=== PATIENT | male | born 1955 | race Caucasian/White ===

== ENCOUNTER 2018-06-21 09:48 | Emergency (ER) | payer OTHER, SELFPAY ==
[2018-06-21 09:56] VITALS: BP 124/70; PULSE 93; RESP 18; TEMP 36.3; O2SAT 100
--- NOTE | 2018-06-21 11:38 | DI.RAD.S_ITS ---
PROCEDURE: XR FOOT LT MIN 3V INDICATIONS: 4th infection TECHNIQUE: 3 views of the foot were acquired. COMPARISON: None. FINDINGS: Bones: No fractures or dislocations. No suspicious bony lesions. Soft tissues: No tibiotalar joint effusion. Calcification of the distal Achilles tendon at calcaneal attachment. There is an ossicle in the posterior plantar soft tissue. Diffuse soft tissue swelling. IMPRESSION: 1. Diffuse soft tissue swelling consistent with cellulitis. 2. No bony erosions. If clinical symptoms persist or clinical suspicion for pathology is high, a triple phase bone scan is suggested for further evaluation. 3. Calcification in the distal Achilles tendon consistent with tendinitis. 4. An ossicle in the posterior plantar fascia, which may be sequelae of plantar fasciitis. Dictated by: Troy Patel M.D. on 06/21/2018 at 12:11 Approved by: Troy Patel M.D. on 06/21/2018 at 12:13
[2018-06-21 11:54] LABS: Add Manual Diff / Slide Review NO; Basophils Absolute Auto 100 /uL (0-100); Basophils Percent Auto 0.7 % (0-2); Eosinophils Absolute Auto 100 /uL (0-450); Eosinophils Percent Auto 1.3 % (2-4); Hemoglobin 14.7 g/dL (13.5-17.5); Lymphocytes Absolute Auto 1100 /uL (1100-4500); Lymphocytes Percent Auto 10.9 % (25-40); Mean Corpuscular HGB Conc 33.4 % (30-36); Mean Corpuscular Hemoglobin 30.7 PG (26-34); Mean Corpuscular Volume 92.1 fL (80-100); Monocytes Absolute Auto 600 /uL (0-900); Monocytes Percent Auto 6.3 % (3-14); Neutrophils Absolute Auto 7800 /uL (1500-7000); Neutrophils Percent Auto 80.8 % (50-75); Platelet Count 289 X10^3/uL (150-400); Red Blood Cell Count 4.78 X10^6/uL (4.5-5.9); Red Cell Distribution Width 14.3 % (11.6-14.8); White Blood Cell Count 9.7 X10^3/uL (4.5-11.0)
[2018-06-21 11:55] LABS: Lactate (Lactic Acid) 1.5 mmol/L (0.7-2.1)
[2018-06-21 11:58] LABS: C-Reactive Protein Quant 2.9 mg/dL (<1.0)
[2018-06-21 12:13] LABS: Erythrocyte Sedimentation Rate 44 MM/HR (0-15)
[2018-06-21 12:20] LABS: Procalcitonin < 0.05 ng/mL (<0.5)
[2018-06-21 12:45] VITALS: BP 120/77; PULSE 75; RESP 15; O2SAT 100
[2018-06-21] MEDS: levoFLOXacin 750 MG/150 ML PIGGYBACK 100 MG IV (12:56)
[2018-06-21] MEDS: SODIUM CHLORIDE 0.9% 1,000 ML 21 ML IV (13:00)
[2018-06-21 13:43] LABS: Alanine Aminotransferase 30 IU/L (21-72); Albumin 4.2 g/dL (3.5-5.0); Albumin Globulin Ratio 1.2 (1.0-2.8); Alkaline Phosphatase 109 U/L (38-126); Aspartate Aminotransferase 41 IU/L (17-59); Bilirubin Total 0.7 mg/dL (0.2-1.3); Blood Urea Nitrogen 18 mg/dL (9-20); Calcium 9.5 mg/dL (8.4-10.2); Carbon Dioxide 25 mmol/L (22-32); Chloride 102 mmol/L (98-107); Estimated Glomerular Filt Rate > 60.0 mL/min (>60); Globulin 3.6 g/dL (1.7-4.1); Glucose 184 mg/dL (80-110); HEMOLYSIS < 15 (0-50); Potassium 4.8 mmol/L (3.4-5.1); Sodium 138 mmol/L (137-145); Total Protein 7.8 g/dL (6.3-8.2)
--- NOTE | 2018-06-21 14:32 | ED_ITS ---
HPI - Extremity Injury (Lower) General Chief Complaint: Extremity Injury, Lower Stated Complaint: swollen calf,infected toe L leg Time Seen by Provider: 06/21/18 11:29 Source: patient Mode of arrival: ambulatory Limitations: no limitations History of Present Illness HPI Narrative: Patient is a 63-year-old insulin-dependent diabetic presenting with a left 4th toe injury and redness. He states he stubbed it 1 week ago he should have, and then however he waited in now it is red and the redness is spreading into his foot. He denies any pain no fevers or chills. Related Data Home Medications Medication Instructions Recorded Confirmed ASPIRIN (Aspir-Low) 81 mg PO QDAY #0 01/11/11 HYDROCHLOROTHIAZIDE (#ESIDRIX) 25 mg PO Q DAY #0 01/11/11 Methylcobalamin (#S08-IHECPO) 1,000 mcg PO QDAY #0 01/11/11 Multivitamin5 (#MULTIVITAMINS) 1 tab PO Q DAY #0 01/11/11 insulin glargine [Lantus U-100 10 unit SQ Q DAY #0 01/11/11 Insulin] lisinopril 40 mg PO Q DAY #0 01/11/11 metformin 1,000 mg PO BID #0 01/11/11 simvastatin 10 mg PO HS #0 01/11/11 vardenafil [Levitra] 5 mg PO PRN #0 01/11/11 sitagliptin-metformin [Janumet XR] 1 tab PO QDAY #0 07/09/16 Previous Rx's Medication Instructions Recorded doxycycline hyclate 100 mg PO Q12H #20 cap 07/10/16 levofloxacin [Levaquin] 750 mg PO DAILY #7 tab 06/21/18 Allergies Allergy/AdvReac Type Severity Reaction Status Date / Time No Known Drug Allergies Allergy Unknown Unverified 06/21/18 13:21 Review of Systems Review of Systems ROS Unobtainable: All systems reviewed & are unremarkable except as noted in HPI and below Constitutional Denies chills, Denies fever(s), Denies lethargy and Denies weakness Eyes Denies change in vision, Denies eye discharge, Denies irritation and Denies loss of vision ENT Ears, Nose, Mouth, and Throat: Denies change in voice, Denies neck pain and Denies sore throat Cardiovascular Denies chest pain, Denies irregular heart rhythm, Denies lightheadedness, Denies palpitations, Denies dyspnea, Denies dyspnea on exertion and Denies orthopnea Respiratory Denies cough, Denies dyspnea, Denies dyspnea on exertion and Denies wheezing Gastrointestinal Gastrointestinal: Denies abdominal pain, Denies change in bowel habits, Denies diarrhea, Denies nausea and Denies vomiting Genitourinary Denies hematuria, Denies flank pain, Denies urinary incontinence and Denies urinary urgency Musculoskeletal Reports as per HPI and Denies neck pain Integumentary/Breasts Reports non-healing lesions, Reports erythema and Reports wounds Neurologic Denies loss of vision and Denies weakness Endocrine Denies palpitations Allergic/Immunologic Denies wheezing [facility] Medical History Diabetes (Acute) Hyperlipidemia (Acute) Hypertension (Acute) Social History Smoking Status: Never smoker Social History Smoking Status: Never smoker Exam Initial Vital Signs Initial Vital Signs: Vital Signs Temperature 97.3 F L 06/21/18 09:56 Pulse Rate 93 H 06/21/18 09:56 Respiratory Rate 18 06/21/18 09:56 Blood Pressure 124/70 06/21/18 09:56 Pulse Oximetry 100 06/21/18 09:56 GENERAL: Alert male no acute distress well-nourished HEENT: Head atraumatic,EOMI, pupils reactive, face symmetric, moist mucous membranes CARDIOVASCULAR: Regular rate and rhythm without murmurs, rubs or gallops. RESPIRATORY: Breath sounds equal bilaterally, no wheezes rales or rhonchi. ABDOMEN: Soft, nontender. Normoactive bowel sounds all 4 quadrants. No guarding or rebound. EXTREMITIES: Normal range of motion, no clubbing or edema. Neurovascularly intact NEUROLOGICAL: Alert and oriented x4.Normal gait and speech. Cranial nerves II through XII grossly intact. Good [id number], good [id number], strength equal bilaterally, no dysarthria or aphasia, sensation in tact to soft touch bilaterally, no visual changes, no facial droop SKIN: Left foot 4th toe quite erythematous and swollen erythema on the dorsal side of the foot to mid foot. Non circumferential. The toe itself is erythematous swollen and on plantar side open and draining. Some nail involvement as well. Course Orders Ordered: ED Orders 06/21/18 11:30 C-Reactive Protein Quant Stat Complete Blood Count AUTO DIFF Stat Comprehensive Metabolic Panel Stat Erythrocyte Sedimentation Rate Stat Lactate (Lactic Acid) Stat Procalcitonin Stat 06/21/18 11:38 XR foot LT min 3V Stat 06/21/18 12:40 Blood Culture Stat 06/21/18 12:45 Wound Culture and Gram Stain Stat Discontinued Medications Levofloxacin (Levaquin) 750 mg in 150 mls @ 100 mls/hr IV NOW ONE Stop: 06/21/18 14:00 Last Infusion: 06/21/18 15:42 Dose: 0 mls/hr Infusion: 06/21/18 14:36 Dose: 0 mls/hr Admin: 06/21/18 12:56 Dose: 100 mls/hr Sodium Chloride (Normal Saline 0.9%) 500 mls @ 21 mls/hr IV CONT KATIE Sodium Chloride (Normal Saline 0.9%) 1,000 mls @ 21 mls/hr IV CONT KATIE Last Infusion: 06/21/18 15:40 Dose: 21 mls/hr Admin: 06/21/18 13:00 Dose: 21 mls/hr Consultations Consultation #1: Dr. fabian, has been consulted in regards for admission. She has been to the ED to see and evaluate the toe herself. At this time she feels like a discharging home with antibiotics is appropriate. Time: 13:30 Vital Signs - 8 hr 06/21/18 09:56 06/21/18 12:45 06/21/18 14:41 Temperature 97.3 F L Pulse Rate 93 H 75 81 Respiratory Rate 18 15 15 Blood Pressure 124/70 Blood Pressure [Right Arm] 120/77 117/59 L Pulse Oximetry 100 100 99 MDM - Extremity Injury (Lower) Lab Data Attestation: I reviewed the patient's lab results. Result diagrams: 06/21/18 11:30 06/21/18 11:30 Lab Results 06/21/18 06/21/18 06/21/18 Range/Units 11:30 11:30 11:30 WBC 9.7 (4.5-11.0) X10^3/uL RBC 4.78 (4.5-5.9) X10^6/uL Hgb 14.7 (13.5-17.5) g/dL Hct 44.0 (41-53) % MCV 92.1 (80-100) fL MCH 30.7 (26-34) PG MCHC 33.4 (30-36) % RDW 14.3 (11.6-14.8) % Plt Count 289 (150-400) X10^3/uL Neut % (Auto) 80.8 H (50-75) % Lymph % (Auto) 10.9 L (25-40) % Preble % (Auto) 6.3 (3-14) % Eos % (Auto) 1.3 L (2-4) % Baso % (Auto) 0.7 (0-2) % Neut # (Auto) 7800 H (4016-1296) /uL Lymph # (Auto) 1100 (9587-3958) /uL Preble # (Auto) 600 (0-900) /uL Eos # (Auto) 100 (0-450) /uL Baso # (Auto) 100 (0-100) /uL ESR 44 H (0-15) MM/HR Sodium (137-145) mmol/L Potassium (3.4-5.1) mmol/L Chloride (98-107) mmol/L Carbon Dioxide (22-32) mmol/L BUN (9-20) mg/dL Creatinine (0.66-1.25) mg/dL Estimated GFR (>60) mL/min BUN/Creatinine Ratio (6-22) Glucose (80-110) mg/dL Lactate 1.5 (0.7-2.1) mmol/L Calcium (8.4-10.2) mg/dL Total Bilirubin (0.2-1.3) mg/dL AST (17-59) IU/L ALT (21-72) IU/L Alkaline Phosphatase (38-126) U/L C-Reactive Protein (<1.0) mg/dL Total Protein (6.3-8.2) g/dL Albumin (3.5-5.0) g/dL Globulin (1.7-4.1) g/dL Albumin/Globulin Ratio (1.0-2.8) Procalcitonin < 0.05 (<0.5) ng/mL 06/21/18 06/21/18 Range/Units 11:30 11:30 WBC (4.5-11.0) X10^3/uL RBC (4.5-5.9) X10^6/uL Hgb (13.5-17.5) g/dL Hct (41-53) % MCV (80-100) fL MCH (26-34) PG MCHC (30-36) % RDW (11.6-14.8) % Plt Count (150-400) X10^3/uL Neut % (Auto) (50-75) % Lymph % (Auto) (25-40) % Preble % (Auto) (3-14) % Eos % (Auto) (2-4) % Baso % (Auto) (0-2) % Neut # (Auto) (9230-3432) /uL Lymph # (Auto) (7202-2289) /uL Preble # (Auto) (0-900) /uL Eos # (Auto) (0-450) /uL Baso # (Auto) (0-100) /uL ESR (0-15) MM/HR Sodium 138 (137-145) mmol/L Potassium 4.8 (3.4-5.1) mmol/L Chloride 102 (98-107) mmol/L Carbon Dioxide 25 (22-32) mmol/L BUN 18 (9-20) mg/dL Creatinine 0.90 (0.66-1.25) mg/dL Estimated GFR > 60.0 (>60) mL/min BUN/Creatinine Ratio 20.0 (6-22) Glucose 184 H (80-110) mg/dL Lactate (0.7-2.1) mmol/L Calcium 9.5 (8.4-10.2) mg/dL Total Bilirubin 0.7 (0.2-1.3) mg/dL AST 41 (17-59) IU/L ALT 30 (21-72) IU/L Alkaline Phosphatase 109 (38-126) U/L C-Reactive Protein 2.9 H (<1.0) mg/dL Total Protein 7.8 (6.3-8.2) g/dL Albumin 4.2 (3.5-5.0) g/dL Globulin 3.6 (1.7-4.1) g/dL Albumin/Globulin Ratio 1.2 (1.0-2.8) Procalcitonin (<0.5) ng/mL Imaging Data toe: Radiologist's impression: PROCEDURE: XR FOOT LT MIN 3V INDICATIONS: 4th infection TECHNIQUE: 3 views of the foot were acquired. COMPARISON: None. FINDINGS: Bones: No fractures or dislocations. No suspicious bony lesions. Soft tissues: No tibiotalar joint effusion. Calcification of the distal Achilles tendon at calcaneal attachment. There is an ossicle in the posterior plantar soft tissue. Diffuse soft tissue swelling. IMPRESSION: 1. Diffuse soft tissue swelling consistent with cellulitis. 2. No bony erosions. If clinical symptoms persist or clinical suspicion for pathology is high, a triple phase bone scan is suggested for further evaluation. 3. Calcification in the distal Achilles tendon consistent with tendinitis. 4. An ossicle in the posterior plantar fascia, which may be sequelae of plantar fasciitis. Dictated by: Troy Patel M.D. on 06/21/2018 at 12:11 MDM Narrative Medical decision making narrative: We have made a referral for patient to go to wound care. I have given him very clear instructions if it is worsening she needs return to emergency department immediately. He is put on broad-spectrum antibiotics to cover for Pseudomonas, she is high risk for. He does appear nontoxic and nonseptic, but clearly has infection. No sign of osteomyelitis. The patient agrees with discharge plan in going home. I discussed all findings with the patient, Education has been performed regarding treatment plan, diagnosis, warning signs and symptoms and all concerns have been addressed. Verbally agree with and understood all of the above. Discharge Plan Departure Patient Disposition: Home Clinical Impression: Cellulitis of fourth toe of left foot Discharge Date/Time: 06/21/18 15:44 Interventions: ED Discharge Assessment Last Done: 06/21/18 15:35 Instructions: DI for Cellulitis -- Adult Activity Restrictions/Additional Instructions: *You have been diagnosed with cellulitis of left 4th *What to do: This still pain need admission and IV antibiotics. Need to check her feet daily and monitor the redness. He may also require a wound care evaluation and consultation order to help this heal appropriately *Continue to take medications as directed Levaquin 750 mg once a day *Follow up with your primary care provider in 2-3 days *Return to ER if you should have increasing redness, pain, swelling, drainage, fever or any new, worsening or concerning symptoms Prescriptions: New levofloxacin [Levaquin] 750 mg tablet 750 mg PO DAILY Qty: 7 RF: 0 No Action insulin glargine [Lantus U-100 Insulin] 100 UNIT/1 ML solution 10 unit SQ Q DAY Qty: 0 RF: 0 simvastatin 10 MG tablet 10 mg PO HS Qty: 0 RF: 0 metformin 1,000 MG tablet 1,000 mg PO BID Qty: 0 RF: 0 lisinopril 40 MG tablet 40 mg PO Q DAY Qty: 0 RF: 0 vardenafil [Levitra] 5 MG tablet 5 mg PO PRN Qty: 0 RF: 0 HYDROCHLOROTHIAZIDE (#ESIDRIX) 25 mg PO Q DAY Qty: 0 RF: 0 Multivitamin5 (#MULTIVITAMINS) 1 tab PO Q DAY Qty: 0 RF: 0 ASPIRIN (Aspir-Low) 81 mg PO QDAY Qty: 0 RF: 0 Methylcobalamin (#[id number]) 1,000 mcg PO QDAY Qty: 0 RF: 0 sitagliptin-metformin [Janumet XR] 50 MG/1,000 MG tablet, ER multiphase 24 hr 1 tab PO QDAY Qty: 0 RF: 0 doxycycline hyclate 100 MG capsule 100 mg PO Q12H Qty: 20 RF: 0
[2018-06-21 14:41] VITALS: BP 117/59; PULSE 81; RESP 15; O2SAT 99
== END 2018-06-21 15:44 | disposition home or self-care (01) ==
PROVIDERS: Emergency Provider Emergency Medicine
DX: L03.032 Cellulitis of left toe (principal); L03.116 Cellulitis of left lower limb
CPT/HCPCS: 36415; 36591; 73630; 80053; 83605; 84145; 85025; 85651; 86140; 87040; 87070; 87077; 87147; 87186; 87205; 96361; 96365; 96366; 99283; 99284; J1956

== ENCOUNTER → 2018-06-23 13:27 | Outpatient (CLI) | payer OTHER, SELFPAY | PROVIDERS: PCP Internal Medicine; Visit Provider Podiatrist Primary Podiatric Medicine | DX: E11.621 Type 2 diabetes mellitus with foot ulcer (principal); L97.521 Non-pressure chronic ulcer of other part of left foot limited to breakdown of skin | CPT/HCPCS: 11044; 99202; 99213 ==

== ENCOUNTER → 2018-06-30 09:35 | Outpatient (CLI) | payer OTHER, SELFPAY | PROVIDERS: PCP Internal Medicine; Visit Provider Podiatrist Primary Podiatric Medicine | DX: E11.621 Type 2 diabetes mellitus with foot ulcer (principal); L97.526 Non-pressure chronic ulcer of other part of left foot with bone involvement without evidence of necrosis | CPT/HCPCS: 11042 ==

== ENCOUNTER → 2018-07-07 08:32 | Outpatient (CLI) | payer OTHER, SELFPAY | PROVIDERS: PCP Internal Medicine; Visit Provider Family Medicine | DX: E11.621 Type 2 diabetes mellitus with foot ulcer (principal); L97.521 Non-pressure chronic ulcer of other part of left foot limited to breakdown of skin | CPT/HCPCS: 97597; 99213 ==

== ENCOUNTER → 2018-07-21 08:33 | Outpatient (CLI) | payer OTHER, SELFPAY | PROVIDERS: PCP Internal Medicine; Visit Provider Podiatrist Primary Podiatric Medicine | DX: E11.621 Type 2 diabetes mellitus with foot ulcer (principal); E11.40 Type 2 diabetes mellitus with diabetic neuropathy, unspecified; L97.526 Non-pressure chronic ulcer of other part of left foot with bone involvement without evidence of necrosis; I73.9 Peripheral vascular disease, unspecified | CPT/HCPCS: 15275; 99213; Q4196 ==

== ENCOUNTER → 2018-07-28 08:36 | Outpatient (CLI) | payer OTHER, SELFPAY | PROVIDERS: PCP Internal Medicine; Visit Provider Podiatrist Primary Podiatric Medicine | DX: E11.621 Type 2 diabetes mellitus with foot ulcer (principal); E11.40 Type 2 diabetes mellitus with diabetic neuropathy, unspecified; L97.521 Non-pressure chronic ulcer of other part of left foot limited to breakdown of skin | CPT/HCPCS: 15275; 99213; Q4196 ==

== ENCOUNTER → 2018-08-04 08:40 | Outpatient (CLI) | payer OTHER, SELFPAY | PROVIDERS: PCP Internal Medicine; Visit Provider Podiatrist Primary Podiatric Medicine | DX: E11.621 Type 2 diabetes mellitus with foot ulcer (principal); E11.40 Type 2 diabetes mellitus with diabetic neuropathy, unspecified; L97.516 Non-pressure chronic ulcer of other part of right foot with bone involvement without evidence of necrosis; I73.9 Peripheral vascular disease, unspecified | CPT/HCPCS: 99212; 99213 ==

== ENCOUNTER → 2018-08-11 09:04 | Outpatient (CLI) | payer OTHER, SELFPAY | PROVIDERS: PCP Internal Medicine; Visit Provider Podiatrist Primary Podiatric Medicine | DX: E11.621 Type 2 diabetes mellitus with foot ulcer (principal); E11.40 Type 2 diabetes mellitus with diabetic neuropathy, unspecified; L97.521 Non-pressure chronic ulcer of other part of left foot limited to breakdown of skin | CPT/HCPCS: 97597 ==

== ENCOUNTER → 2018-08-18 08:51 | Outpatient (CLI) | payer OTHER, SELFPAY | PROVIDERS: PCP Internal Medicine; Visit Provider Podiatrist Primary Podiatric Medicine | DX: E11.628 Type 2 diabetes mellitus with other skin complications (principal); L84 Corns and callosities | CPT/HCPCS: 99212; 99214 ==

== ENCOUNTER 2019-10-20 13:19 | Inpatient (IN) | payer MEDICARE, OTHER, SELFPAY ==
[2019-10-20] VITALS (16 sets, daily range): BP systolic 110–153; BP diastolic 55–92; PULSE 55–86; RESP 16–20; TEMP 36.2–36.9; O2SAT 95–99; BMI 33.9
--- NOTE | 2019-10-20 14:12 | DI.RAD.S_ITS ---
PROCEDURE: XR TOE RT MIN 2V INDICATIONS: R 3rd toe infection r/o osteomyelitis TECHNIQUE: 3 views of the 3rd toe(s) acquired. COMPARISON: None. FINDINGS: Evaluation of the toes is limited related to overlapping bones and mild flexion of the toes. No displaced fractures or dislocations are appreciated. There is possible increased lucency involving the tuft of the distal phalanx of the 3rd toe. There is prominent overlying soft tissue swelling of this toe. No unexpected radiopaque foreign bodies are appreciated. IMPRESSION: Limited evaluation of the 3rd toe with possible early erosive changes of the distal phalanx. These findings are suspicious for developing osteomyelitis. Contrast enhanced MRI or three-phase bone scan would be helpful for confirmation. Dictated by: Kody Albright M.D. on 10/20/2019 at 13:45 Approved by: Kody Albright M.D. on 10/20/2019 at 13:46
--- NOTE | 2019-10-20 14:16 | ED.SKABFB ---
HPI - Skin/Abscess/Foreign Bdy <TONYA Staley - Last Filed: 10/20/19 18:42> General Chief complaint: Skin/Abscess/Foreign Body Stated complaint: Infected Middle Toe, Right Foot Time Seen by Provider: 10/20/19 13:30 Source: patient Mode of arrival: Ambulatory History of Present Illness HPI narrative: 64-year-old male with a history of diabetes presents to the emergency department for right 3rd toe pain and swelling. He states he had an abrasion on his toe and it has been infected for the past 3-4 weeks. Over the past few weeks the redness has been increasing and he thought he should have it looked at. He does see a sanitation truck driver in [place] but was unable to see him today. Patient denies any fevers, chills, high blood sugars, chest pain, shortness of breath, dizziness, nausea, vomiting, diarrhea, or any other concerns. Related Data Home Medications Medication Instructions Recorded Confirmed aspirin [Adult Low Dose Aspirin] 81 mg PO DAILY 10/20/19 10/20/19 atorvastatin 40 mg PO BEDTIME 10/20/19 10/20/19 carvedilol 12.5 mg PO DAILY 10/20/19 10/20/19 diltiazem HCl 180 mg PO DAILY 10/20/19 10/20/19 insulin glargine [Lantus U-100 10 unit SUBCUT BEDTIME 10/20/19 10/20/19 Insulin] lisinopril 20 mg PO DAILY 10/20/19 10/20/19 metformin 500 mg PO BID 10/20/19 10/20/19 rivaroxaban [Xarelto] 20 mg PO QPM 10/20/19 10/20/19 Allergies Allergy/AdvReac Type Severity Reaction Status Date / Time No Known Drug Allergies Allergy Unknown Unverified 06/21/18 13:21 Review of Systems <TONYA Staley - Last Filed: 10/20/19 18:42> Review of Systems Narrative: REVIEW OF SYSTEMS: GENERAL: Denies fever or chills. HENT: No head trauma. EYES: No double vision or vision loss. CARDIOVASCULAR: No chest pain or syncope. RESPIRATORY: No shortness of breath or cough. GASTROINTESTINAL: No nausea, vomiting, diarrhea, or constipation. GENITOURINARY: No flank pain or dysuria. MUSCULOSKELETAL: Complains of right 3rd toe pain and swelling, see HPI. INTEGUMENTARY: Complains of toe redness and ulceration on bottom of toe, see HPI. NEURO: No numbness, tingling. PSYCH: No behavior or mood changes. Patient History <TONYA Staley - Last Filed: 10/20/19 18:42> Medical History Afib (Acute) Diabetes (Acute) Hyperlipidemia (Acute) Hypertension (Acute) Neuropathy of both feet (Acute) Social History household members: spouse Smoking Status: Never smoker alcohol intake: never Smoking Status: Never smoker alcohol intake frequency: other Substance Use Type: does not use Exam <TONYA Staley - Last Filed: 10/20/19 18:42> Initial Vital Signs Initial Vital Signs: Vital Signs Temperature 97.2 F L 10/20/19 13:29 Pulse Rate 83 10/20/19 13:29 Respiratory Rate 18 10/20/19 13:29 Blood Pressure 144/92 H 10/20/19 13:29 Pulse Oximetry 98 10/20/19 13:29 PHYSICAL EXAMINATION: GENERAL: Well groomed, alert, and cooperative. Answers questions promptly and appropriately. Vital signs noted. HENT: Normocephalic, atraumatic. EYES: Symmetrical, sclera white, no periorbital swelling. CARDIOVASCULAR: Regular rate. RESPIRATORY: Normal respiratory rate, trachea midline, airway patent. No stridor, nasal flaring or accessory muscle use. MUSCULOSKELETAL: Ulcer with small amount of necrotic tissue noted to the plantar aspect of right 3rd toe. The entire toe with small amount of swelling and significant cellulitis that extends up past the MTP joint. Tenderness with palpation, small amount of serous sanguinous drainage. No purulent drainage visualized. Wound culture was taken. Normal gait and coordination. Equal tone and mass bilaterally. EXTREMITIES: CMS intact. No pedal edema. SKIN: Warm, dry, soft, appropriate color for ethnicity. No lesions, rashes, or wounds. NEURO: Alert and Oriented X 3. No sensory deficits. PSYCH: Appropriate affect and mood. <Chapo Barboza MD - Last Filed: 10/20/19 18:53> Initial Vital Signs Initial Vital Signs: Vital Signs Temperature 97.2 F L 10/20/19 13:29 Pulse Rate 83 10/20/19 13:29 Respiratory Rate 18 10/20/19 13:29 Blood Pressure 144/92 H 10/20/19 13:29 Pulse Oximetry 98 10/20/19 13:29 Course <TONYA Staley - Last Filed: 10/20/19 18:42> Course Course Narrative: IV vancomycin was started in the emergency department as osteomyelitis was suspected on x-ray results. 1719: I spoke with orthopedic surgeon, Dr. Valdez. Discussed patient history, test results, and she was able to view patient x-rays. States she will consult on case tomorrow. IV antibiotics is appropriate, no immediate concern for indication at this time. 1721: I spoke with Dr. Haskins, discussed test, test results, plan of care. Accepts for admission. Orders Ordered: ED Orders 10/20/19 14:12 XR toe RT min 2V Stat 10/20/19 14:40 Complete Blood Count AUTO DIFF Stat Comprehensive Metabolic Panel Stat Lactate (Lactic Acid) Stat 10/20/19 16:08 Blood Culture Stat 10/20/19 16:55 Wound Culture and Gram Stain Stat Discontinued Medications Vancomycin HCl/Dextrose (Vancomycin) 2,000 mg in 400 mls @ 200 mls/hr IV NOW ONE Stop: 10/20/19 17:38 Last Infusion: 10/20/19 18:08 Dose: 0 mls/hr Documented by: Admin: 10/20/19 16:01 Dose: 200 mls/hr Documented by: KAN Sodium Chloride (Normal Saline 0.9%) 1,000 mls @ 1,000 mls/hr IV BOLUS ONE Stop: 10/20/19 16:38 Last Infusion: 10/20/19 18:15 Dose: 0 mls/hr Documented by: Admin: 10/20/19 16:01 Dose: 1,000 mls/hr Documented by: KAN Consultations Consultation #1: Patient staffed with Dr. Barboza, discussed test, test results, plan of care. Vital Signs Vital signs: Vital Signs - 8 hr 10/20/19 13:29 10/20/19 13:55 10/20/19 14:00 Temperature 97.2 F L Pulse Rate 83 68 67 Respiratory Rate 18 Blood Pressure 144/92 H 110/55 L Pulse Oximetry 98 98 98 10/20/19 14:26 10/20/19 14:30 10/20/19 15:00 Temperature Pulse Rate 67 65 67 Respiratory Rate Blood Pressure 117/69 123/58 L 119/61 Pulse Oximetry 98 97 99 10/20/19 15:30 10/20/19 16:00 10/20/19 16:01 Temperature Pulse Rate 65 68 78 Respiratory Rate Blood Pressure 117/58 L 133/64 Pulse Oximetry 98 98 99 10/20/19 16:30 10/20/19 17:00 Temperature Pulse Rate 73 55 L Respiratory Rate 16 16 Blood Pressure 153/73 H 140/72 Pulse Oximetry 98 97 <Chapo Barboza MD - Last Filed: 10/20/19 18:53> Orders Ordered: ED Orders 10/20/19 14:12 XR toe RT min 2V Stat 10/20/19 14:40 Complete Blood Count AUTO DIFF Stat Comprehensive Metabolic Panel Stat Lactate (Lactic Acid) Stat 10/20/19 16:08 Blood Culture Stat 10/20/19 16:55 Wound Culture and Gram Stain Stat Discontinued Medications Vancomycin HCl/Dextrose (Vancomycin) 2,000 mg in 400 mls @ 200 mls/hr IV NOW ONE Stop: 10/20/19 17:38 Last Infusion: 10/20/19 18:08 Dose: 0 mls/hr Documented by: Admin: 10/20/19 16:01 Dose: 200 mls/hr Documented by: KAN Sodium Chloride (Normal Saline 0.9%) 1,000 mls @ 1,000 mls/hr IV BOLUS ONE Stop: 10/20/19 16:38 Last Infusion: 10/20/19 18:15 Dose: 0 mls/hr Documented by: Admin: 10/20/19 16:01 Dose: 1,000 mls/hr Documented by: KAN Vital Signs Vital signs: Vital Signs - 8 hr 10/20/19 13:29 10/20/19 13:55 10/20/19 14:00 Temperature 97.2 F L Pulse Rate 83 68 67 Respiratory Rate 18 Blood Pressure 144/92 H 110/55 L Pulse Oximetry 98 98 98 10/20/19 14:26 10/20/19 14:30 10/20/19 15:00 Temperature Pulse Rate 67 65 67 Respiratory Rate Blood Pressure 117/69 123/58 L 119/61 Pulse Oximetry 98 97 99 10/20/19 15:30 10/20/19 16:00 10/20/19 16:01 Temperature Pulse Rate 65 68 78 Respiratory Rate Blood Pressure 117/58 L 133/64 Pulse Oximetry 98 98 99 10/20/19 16:30 10/20/19 17:00 Temperature Pulse Rate 73 55 L Respiratory Rate 16 16 Blood Pressure 153/73 H 140/72 Pulse Oximetry 98 97 MDM - Skin/Abscess/Foreign Bdy <Fatmata ConnerTONYA - Last Filed: 10/20/19 18:42> Medical Records Attestation: I reviewed the patient's medical records. Lab Data Attestation: I reviewed the patient's lab results. Result diagrams: 10/20/19 14:40 10/20/19 14:40 Labs: Lab Results 10/20/19 10/20/19 10/20/19 Range/Units 14:40 14:40 14:40 WBC 8.8 (4.5-11.0) X10^3/uL RBC 4.45 L (4.5-5.9) X10^6/uL Hgb 13.9 (13.5-17.5) g/dL Hct 41.5 (41-53) % MCV 93.2 (80-100) fL MCH 31.1 (26-34) PG MCHC 33.4 (30-36) % RDW 14.2 (11.6-14.8) % Plt Count 222 (150-400) X10^3/uL Neut % (Auto) 74.3 (50-75) % Lymph % (Auto) 15.3 L (25-40) % Pacific % (Auto) 8.6 (3-14) % Eos % (Auto) 1.3 L (2-4) % Baso % (Auto) 0.5 (0-2) % Neut # (Auto) 6500 (3801-0890) /uL Lymph # (Auto) 1300 (3443-9220) /uL Pacific # (Auto) 800 (0-900) /uL Eos # (Auto) 100 (0-450) /uL Baso # (Auto) 0 (0-100) /uL Sodium 135 L (137-145) mmol/L Potassium 4.4 (3.4-5.1) mmol/L Chloride 102 (98-107) mmol/L Carbon Dioxide 23 (22-32) mmol/L BUN 25 H (9-20) mg/dL Creatinine 1.08 (0.66-1.25) mg/dL Estimated GFR > 60.0 (>60) mL/min BUN/Creatinine Ratio 23.1 H (6-22) Glucose 227 H (80-110) mg/dL Lactate 1.1 (0.7-2.1) mmol/L Calcium 9.5 (8.4-10.2) mg/dL Total Bilirubin 0.7 (0.2-1.3) mg/dL AST 47 (17-59) IU/L ALT 40 (<50) IU/L Alkaline Phosphatase 109 (38-126) U/L Total Protein 7.5 (6.3-8.2) g/dL Albumin 4.1 (3.5-5.0) g/dL Globulin 3.4 (1.7-4.1) g/dL Albumin/Globulin Ratio 1.2 (1.0-2.8) COVID-19 PCR (Negative) 10/20/19 Range/Units 17:20 WBC (4.5-11.0) X10^3/uL RBC (4.5-5.9) X10^6/uL Hgb (13.5-17.5) g/dL Hct (41-53) % MCV (80-100) fL MCH (26-34) PG MCHC (30-36) % RDW (11.6-14.8) % Plt Count (150-400) X10^3/uL Neut % (Auto) (50-75) % Lymph % (Auto) (25-40) % Pacific % (Auto) (3-14) % Eos % (Auto) (2-4) % Baso % (Auto) (0-2) % Neut # (Auto) (9808-8529) /uL Lymph # (Auto) (9737-6371) /uL Pacific # (Auto) (0-900) /uL Eos # (Auto) (0-450) /uL Baso # (Auto) (0-100) /uL Sodium (137-145) mmol/L Potassium (3.4-5.1) mmol/L Chloride (98-107) mmol/L Carbon Dioxide (22-32) mmol/L BUN (9-20) mg/dL Creatinine (0.66-1.25) mg/dL Estimated GFR (>60) mL/min BUN/Creatinine Ratio (6-22) Glucose (80-110) mg/dL Lactate (0.7-2.1) mmol/L Calcium (8.4-10.2) mg/dL Total Bilirubin (0.2-1.3) mg/dL AST (17-59) IU/L ALT (<50) IU/L Alkaline Phosphatase (38-126) U/L Total Protein (6.3-8.2) g/dL Albumin (3.5-5.0) g/dL Globulin (1.7-4.1) g/dL Albumin/Globulin Ratio (1.0-2.8) COVID-19 PCR Negative (Negative) Imaging Data Extremity x-ray #1: Radiologist's Impression: [place] [address] XRay Report Signed Patient: Gorge Fuller R#: [id number] : 4Acct:[id number] Age/Sex: 64 / MDate of Service: 10/20/19 Loc: ED Accession Number: [id number] Procedure: XR toe RT min 2V Ordering Provider: Fatmata Conner PROCEDURE: XR TOE RT MIN 2V INDICATIONS: R 3rd toe infection r/o osteomyelitis TECHNIQUE: 3 views of the 3rd toe(s) acquired. COMPARISON: None. FINDINGS: Evaluation of the toes is limited related to overlapping bones and mild flexion of the toes. No displaced fractures or dislocations are appreciated. There is possible increased lucency involving the tuft of the distal phalanx of the 3rd toe. There is prominent overlying soft tissue swelling of this toe. No unexpected radiopaque foreign bodies are appreciated. IMPRESSION: Limited evaluation of the 3rd toe with possible early erosive changes of the distal phalanx. These findings are suspicious for developing osteomyelitis. Contrast enhanced MRI or three-phase bone scan would be helpful for confirmation. Dictated by: Kody Albright M.D. on 10/20/2019 at 13:45 Approved by: Kody Albright M.D. on 10/20/2019 at 13:46 [facility] Narrative Medical decision making narrative: 64-year-old male with a history of diabetes, presents emergency department for concerns for a toe infection for the past 3 weeks. X-ray shows concern for osteomyelitis, apparent cellulitis is noted with a diabetic ulcer present on the toe, some concerns for necrotic tissue. Wound culture was slapped. Patient is hemodynamically stable, less concern for sepsis due to lack of elevated white blood cell count, lack of other symptoms such as fevers or tachycardia. I discussed patient's case with Dr. Valdez who states she will consult on the patient. Patient admitted for IV antibiotics for cellulitis, osteomyelitis, and diabetic ulcer to Dr. Haskins. IV vancomycin was starting the emergency department. Patient consents to admission. <Chapo Barboza MD - Last Filed: 10/20/19 18:53> Lab Data Labs: Lab Results 10/20/19 10/20/19 10/20/19 Range/Units 14:40 14:40 14:40 WBC 8.8 (4.5-11.0) X10^3/uL RBC 4.45 L (4.5-5.9) X10^6/uL Hgb 13.9 (13.5-17.5) g/dL Hct 41.5 (41-53) % MCV 93.2 (80-100) fL MCH 31.1 (26-34) PG MCHC 33.4 (30-36) % RDW 14.2 (11.6-14.8) % Plt Count 222 (150-400) X10^3/uL Neut % (Auto) 74.3 (50-75) % Lymph % (Auto) 15.3 L (25-40) % Pacific % (Auto) 8.6 (3-14) % Eos % (Auto) 1.3 L (2-4) % Baso % (Auto) 0.5 (0-2) % Neut # (Auto) 6500 (0963-0458) /uL Lymph # (Auto) 1300 (4747-9499) /uL Pacific # (Auto) 800 (0-900) /uL Eos # (Auto) 100 (0-450) /uL Baso # (Auto) 0 (0-100) /uL Sodium 135 L (137-145) mmol/L Potassium 4.4 (3.4-5.1) mmol/L Chloride 102 (98-107) mmol/L Carbon Dioxide 23 (22-32) mmol/L BUN 25 H (9-20) mg/dL Creatinine 1.08 (0.66-1.25) mg/dL Estimated GFR > 60.0 (>60) mL/min BUN/Creatinine Ratio 23.1 H (6-22) Glucose 227 H (80-110) mg/dL Lactate 1.1 (0.7-2.1) mmol/L Calcium 9.5 (8.4-10.2) mg/dL Total Bilirubin 0.7 (0.2-1.3) mg/dL AST 47 (17-59) IU/L ALT 40 (<50) IU/L Alkaline Phosphatase 109 (38-126) U/L Total Protein 7.5 (6.3-8.2) g/dL Albumin 4.1 (3.5-5.0) g/dL Globulin 3.4 (1.7-4.1) g/dL Albumin/Globulin Ratio 1.2 (1.0-2.8) COVID-19 PCR (Negative) 10/20/19 Range/Units 17:20 WBC (4.5-11.0) X10^3/uL RBC (4.5-5.9) X10^6/uL Hgb (13.5-17.5) g/dL Hct (41-53) % MCV (80-100) fL MCH (26-34) PG MCHC (30-36) % RDW (11.6-14.8) % Plt Count (150-400) X10^3/uL Neut % (Auto) (50-75) % Lymph % (Auto) (25-40) % Pacific % (Auto) (3-14) % Eos % (Auto) (2-4) % Baso % (Auto) (0-2) % Neut # (Auto) (6378-1967) /uL Lymph # (Auto) (5572-5619) /uL Pacific # (Auto) (0-900) /uL Eos # (Auto) (0-450) /uL Baso # (Auto) (0-100) /uL Sodium (137-145) mmol/L Potassium (3.4-5.1) mmol/L Chloride (98-107) mmol/L Carbon Dioxide (22-32) mmol/L BUN (9-20) mg/dL Creatinine (0.66-1.25) mg/dL Estimated GFR (>60) mL/min BUN/Creatinine Ratio (6-22) Glucose (80-110) mg/dL Lactate (0.7-2.1) mmol/L Calcium (8.4-10.2) mg/dL Total Bilirubin (0.2-1.3) mg/dL AST (17-59) IU/L ALT (<50) IU/L Alkaline Phosphatase (38-126) U/L Total Protein (6.3-8.2) g/dL Albumin (3.5-5.0) g/dL Globulin (1.7-4.1) g/dL Albumin/Globulin Ratio (1.0-2.8) COVID-19 PCR Negative (Negative) Discharge Plan Departure Patient Disposition: Admitted As Inpatient Clinical Impression: Cellulitis Qualifiers: Site of cellulitis: extremity Site of cellulitis of extremity: lower extremity Laterality: right Qualified Code(s): L03.115 - Cellulitis of right lower limb Osteomyelitis Qualifiers: Osteomyelitis type: unspecified type Osteomyelitis location: foot Laterality: right Qualified Code(s): M86.9 - Osteomyelitis, unspecified Diabetic foot ulcer Qualifiers: Diabetic foot ulcer location: other Diabetes mellitus type: type 2 Laterality: right Non-pressure ulcer stage: with other severity Qualified Code(s): E11.621 - Type 2 diabetes mellitus with foot ulcer Discharge Date/Time: 10/20/19 17:23 Referrals: Yanet Masterson MD [Primary Care Provider] - Admit Date/Time: 10/20/19 17:23 Admit Provider: Connie Haskins
[2019-10-20 14:48] LABS: Add Manual Diff / Slide Review NO; Basophils Absolute Auto 0 /uL (0-100); Basophils Percent Auto 0.5 % (0-2); Eosinophils Absolute Auto 100 /uL (0-450); Eosinophils Percent Auto 1.3 % (2-4); Hematocrit 41.5 % (41-53); Hemoglobin 13.9 g/dL (13.5-17.5); Lymphocytes Absolute Auto 1300 /uL (1100-4500); Lymphocytes Percent Auto 15.3 % (25-40); Mean Corpuscular HGB Conc 33.4 % (30-36); Mean Corpuscular Hemoglobin 31.1 PG (26-34); Mean Corpuscular Volume 93.2 fL (80-100); Monocytes Absolute Auto 800 /uL (0-900); Monocytes Percent Auto 8.6 % (3-14); Neutrophils Absolute Auto 6500 /uL (1500-7000); Neutrophils Percent Auto 74.3 % (50-75); Platelet Count 222 X10^3/uL (150-400); Red Blood Cell Count 4.45 X10^6/uL (4.5-5.9); Red Cell Distribution Width 14.2 % (11.6-14.8); White Blood Cell Count 8.8 X10^3/uL (4.5-11.0)
[2019-10-20 15:14] LABS: Alanine Aminotransferase 40 IU/L (<50); Albumin 4.1 g/dL (3.5-5.0); Albumin Globulin Ratio 1.2 (1.0-2.8); Alkaline Phosphatase 109 U/L (38-126); Aspartate Aminotransferase 47 IU/L (17-59); BUN Creatinine Ratio 23.1 (6-22); Bilirubin Total 0.7 mg/dL (0.2-1.3); Blood Urea Nitrogen 25 mg/dL (9-20); Calcium 9.5 mg/dL (8.4-10.2); Carbon Dioxide 23 mmol/L (22-32); Chloride 102 mmol/L (98-107); Estimated Glomerular Filt Rate > 60.0 mL/min (>60); Globulin 3.4 g/dL (1.7-4.1); Glucose 227 mg/dL (80-110); HEMOLYSIS < 15 (0-50); Lactate (Lactic Acid) 1.1 mmol/L (0.7-2.1); Potassium 4.4 mmol/L (3.4-5.1); Sodium 135 mmol/L (137-145); Total Protein 7.5 g/dL (6.3-8.2)
[2019-10-20] MEDS: SODIUM CHLORIDE 0.9% 1,000 ML 1000 ML IV (16:01)
[2019-10-20] MEDS: VANCOMYCIN 2,000 MG/400 ML PIGGYBACK 200 MG IV (16:01)
[2019-10-20 18:34] LABS: COVID19 -Nasal RAPID Negative (Negative)
--- NOTE | 2019-10-20 20:31 | P.HP_ITS ---
History of Present Illness History of Present Illness Date Patient Seen: 10/20/19 Time Patient Seen: 20:31 Chief complaint: Infected Middle Toe, Right Foot Narrative: Mr. Gorge Torres is a 64-year-old male with a past medical history significant for atrial fibrillation on Xarelto, diabetes with neuropathy, hypertension and hyperlipidemia who presents to the ER with toe pain and swelling. The patient reports that he sustained abrasion on his toe walking barefoot 3-4 weeks ago. He has significant neuropathy of the feet and presents to the ER today with increased pain swelling and redness. The patient denies complaints systemic symptoms and reports no fevers or chills or elevated blood sugars. Patient has had no recent illness and denies known COVID-19 exposure. He has had no headaches or dizziness, nasal congestion or sore throat. He gordon es complaints of chest pain and has chronic atrial fibrillation is aware of his irregular rhythm. He reports no shortness of breath, cough or wheezing. He denies complaints of heartburn or abdominal pain and has no nausea, vomiting or diarrhea. The patient is independent in all ADLs and ambulatory with no assistive devices. Upon arrival the ER the patient has temperature 97.2?, heart rate of 83, blood pressure 144/92, respirations of 18 saturating 98% on room air. Imaging is obtained finding early erosive changes to the distal phalanx the 3rd toe. On laboratory analysis the patient has a white count of 8.8, hemoglobin of 13.9, hematocrit of 41.5, platelets of 222. His electrolytes are all within normal limits and has a BUN of 25 and a creatinine of 1 point at 0 8. His blood sugar is 227. His LFTs are all within normal limits. He has lactic acid of 1.1. COVID-[address] Valdez orthopedist is contacted through the emergency department to evaluate the patient's wound with concern for osteomyelitis. The patient is admitted to the medicine service for diabetic cellulitis. Patient History Medical History Afib (Acute) Diabetes (Acute) Hyperlipidemia (Acute) Hypertension (Acute) Neuropathy of both feet (Acute) Surgical History (Updated 10/21/19 @ 06:26 by TONYA Gaytan) History of hernia repair (Acute) History of neck surgery (Acute) Family & Social History Family History (Updated 10/21/19 @ 06:27 by TONYA Gaytan) Father Smoker Diabetes mellitus Heart attack Mother No significant medical problems Social History: household members spouse Prior Living Arrangements House Safety & Behavioral: Feels Safe in Current Yes Environment Been Physically Hurt or No Threatened By a Person Suicidal Ideation Description None Suicide Plan Description No Plan Tobacco & Substance use: Smoking Status Never smoker alcohol intake never alcohol intake frequency other Substance Use Type does not use Meds Home Medications and Allergies Home Medications Medication Instructions Recorded Confirmed Type aspirin [Adult Low Dose Aspirin] 81 mg PO DAILY 10/20/19 10/20/19 History atorvastatin 40 mg PO BEDTIME 10/20/19 10/20/19 History carvedilol 12.5 mg PO DAILY 10/20/19 10/20/19 History diltiazem HCl 180 mg PO DAILY 10/20/19 10/20/19 History insulin glargine [Lantus U-100 10 unit SUBCUT BEDTIME 10/20/19 10/20/19 History Insulin] lisinopril 20 mg PO DAILY 10/20/19 10/20/19 History metformin 500 mg PO BID 10/20/19 10/20/19 History rivaroxaban [Xarelto] 20 mg PO QPM 10/20/19 10/20/19 History Allergies Allergy/AdvReac Type Severity Reaction Status Date / Time piperacillin [From Zosyn] Allergy Severe Uticaria Verified 10/20/19 22:50 tazobactam [From Zosyn] Allergy Severe Uticaria Verified 10/20/19 22:50 Review of Systems Review of Systems ROS: Yes All systems reviewed with the patient and are negative except as otherwise documented Exam Vital Signs (past 8 hours): - 10/20/19 13:29 10/20/19 13:55 10/20/19 14:00 Temperature 97.2 F L Pulse Rate 83 68 67 Respiratory Rate 18 Blood Pressure 144/92 H 110/55 L Pulse Oximetry 98 98 98 10/20/19 14:26 10/20/19 14:30 10/20/19 15:00 Temperature Pulse Rate 67 65 67 Respiratory Rate Blood Pressure 117/69 123/58 L 119/61 Pulse Oximetry 98 97 99 10/20/19 15:30 10/20/19 16:00 10/20/19 16:01 Temperature Pulse Rate 65 68 78 Respiratory Rate Blood Pressure 117/58 L 133/64 Pulse Oximetry 98 98 99 10/20/19 16:30 10/20/19 17:00 10/20/19 17:30 Temperature Pulse Rate 73 55 L 73 Respiratory Rate 16 16 Blood Pressure 153/73 H 140/72 141/69 H Pulse Oximetry 98 97 97 10/20/19 18:00 Temperature Pulse Rate 69 Respiratory Rate Blood Pressure 141/67 H Pulse Oximetry 99 Oxygen Delivery Method Room Air Narrative Exam Narrative: GENERAL APPEARANCE: well developed, well nourished, in no acute distress. HEENT: Normocephalic, PERRLA, conjunctiva clear, EOMs intact without nystagmus, no sinus tenderness to percussion, no rhinorrhea, mucous membranes are moist and pink without lesions or exudate. NECK/THYROID: neck supple, no JVD, no carotid bruit, no thyromegaly, trachea midline. LYMPH NODES: no cervical or supraclavicular lymphadenopathy. SKIN: [place], warm and dry, no visible lesions, rashes, ulcerations or petechiae. HEART: Irregularly irregular heart rhythm, S1-S2, no murmur, no rubs or gallops, brisk capillary refill, no edema LUNGS: clear to auscultation bilaterally, no coarseness crackles or wheezing, no cough present CHEST: Symmetrical movement, no accessory muscle use, good tidal volume. ABDOMEN: Soft, round tympanitic abdomen, nontender to palpation, no guarding or peritoneal signs, no organomegaly, no flank or suprapubic tenderness, active bowel tones. BACK: Normal curvature, nontender to palpation, no CVA tenderness on percussion EXTREMITIES: Redness with necrotic appearing tissue of the distal 3rd toe of the right foot with surrounding erythema and warmth. Moves all extremities, strength is 5/5 and symmetrical, no deformities or joint effusions. NEUROLOGIC: AAO x4, no focal neurologic deficits, cranial nerves II-XII grossly intact, neuropathy of the distal 3rd of bilateral lower extremities, hearing gr ossly normal to speech. PSYCH: Good judgment, good insight, linear thought process, cooperative, baldomero ropriate with stable behavior Objective Labs Result Diagrams: 10/21/19 04:05 10/21/19 04:05 Labs: Laboratory Results - last 24 hr 10/20/19 10/20/19 10/20/19 14:40 14:40 14:40 WBC 8.8 RBC 4.45 L Hgb 13.9 Hct 41.5 MCV 93.2 MCH 31.1 MCHC 33.4 RDW 14.2 Plt Count 222 Neut % (Auto) 74.3 Lymph % (Auto) 15.3 L [place] % (Auto) 8.6 Eos % (Auto) 1.3 L Baso % (Auto) 0.5 Neut # (Auto) 6500 Lymph # (Auto) 1300 [place] # (Auto) 800 Eos # (Auto) 100 Baso # (Auto) 0 Sodium 135 L Potassium 4.4 Chloride 102 Carbon Dioxide 23 BUN 25 H Creatinine 1.08 Estimated GFR > 60.0 BUN/Creatinine Ratio 23.1 H Glucose 227 H Lactate 1.1 Calcium 9.5 Total Bilirubin 0.7 AST 47 ALT 40 Alkaline Phosphatase 109 Total Protein 7.5 Albumin 4.1 Globulin 3.4 Albumin/Globulin Ratio 1.2 COVID-19 PCR 10/20/19 17:20 WBC RBC Hgb Hct MCV MCH MCHC RDW Plt Count Neut % (Auto) Lymph % (Auto) [place] % (Auto) Eos % (Auto) Baso % (Auto) Neut # (Auto) Lymph # (Auto) [place] # (Auto) Eos # (Auto) Baso # (Auto) Sodium Potassium Chloride Carbon Dioxide BUN Creatinine Estimated GFR BUN/Creatinine Ratio Glucose Lactate Calcium Total Bilirubin AST ALT Alkaline Phosphatase Total Protein Albumin Globulin Albumin/Globulin Ratio COVID-19 PCR Negative Assessment & Plan Assessment & Plan narrative: This is a 64-year-old male patient with diabetic ulcer and necrosis of the right 3rd toe with associated cellulitis and osteomyelitis. 1. Diabetic ulcer 3rd toe right foot with cellulitis, acute, present on admission, active. -the patient has had wound to the toe for 3-4 weeks starting with an abrasion and progressively worsening. The patient is followed by Podiatry but has not seen him for over 1 month. -wound culture and Gram stain of the right 3rd toe finds 4+ Gram-positive cocci. -patient started on vancomycin 2000 mg IV in the ER, ordered vancomycin pharmacy to dose. -ordered Zosyn 3.375 g IV every 8 hours. 2. Osteomyelitis of the 3rd distal phalanx, acute, present on admission, active. -plain x-ray of the toe reveals early erosive changes to the distal phalanx. -will obtain an MRI to further characterize osteo myelitis as well as s urrounding tissues. -the patient has been evaluated by Dr. Valdez [facility], we appreciate Dr. Arturo colindres is evaluation recommendations. -patient is on antibiotics as above 3. Insulin-dependent diabetes type 2 with neuropathy, chronic, present on admission, stable. -blood sugar on admission is 227, patient reports not having elevated blood sugars was surprised by the number. -patient takes metformin 500 mg twice daily which will be held. -will continue Lantus 10 units daily at bedtime. -ordered fingerstick blood sugars a.c. and hs with low-dose correctional insulin. 4. Persistent Atrial fibrillation, present on admission, active. -patient presently in atrial fibrillation and is not aware of going in and out of the rhythm, he reports no palpitations. -the patient denies complaints of chest pain or shortness of breath. -will continue rate control with diltiazem 180 mg daily and carvedilol 12.5 mg daily. -will continue anticoagulation with Xarelto 20 mg daily. 5. Hypertension, chronic, stable -patient's blood pressure on admission is 144/92 improving and to the 130s over 70s. -Continue the patient's home regimen of carvedilol 12.5 mg daily and lisinopril 20 mg daily. 6. Hyperlipidemia, chronic, stable -Will continue the patient's home regimen of atorvastatin 40 mg daily. VTE prophylaxis: SCDs, anticoagulated on Xarelto IV fluid: Saline lock. Diet: Small constant carbohydrate, heart healthy Code status: FULL CODE, patient designates his is his surrogate decision maker. The patient is admitted to the hospital related to diabetic wound ulcer with cellulitis and osteomyelitis. The patient is admitted as an inpatient with expected length of stay to be greater than 2 midnights. COVID-19 COVID-19 status: Negative Result date/Date tested (Pos, Neg/Pending): 10/20/19
[2019-10-20] MEDS: PIPERACILLIN-TAZO 3.375 GM/50 ML FROZ.PIGGY IV (21:09)
[2019-10-20] MEDS: SODIUM CHLORIDE 0.9% FLUSH 10 ML IV (21:10)
[2019-10-20] MEDS: ATORVASTATIN 20 MG TABLET 40 MG PO (21:15)
[2019-10-20] MEDS: INSULIN ASPART 100 UNIT/ML INSULN PEN SUBCUT (21:15)
[2019-10-20] MEDS: diphenhydrAMINE 50 MG/ML VIAL IV (22:12)
[2019-10-20] MEDS: methylPREDNISolone 125 MG/2 ML VIAL 60 MG IV (22:12)
[2019-10-20 22:22] LABS: Magnesium 1.5 mg/dL (1.6-2.3)
--- NOTE | 2019-10-20 22:24 | PC.NURSE ---
2199 - Pt turned rn neonatal icu light. He indicated that he has red bumps to arm distal to IV site. Pt with 3 large welt-like bumps on forearm. IV stopped, although IV ABX infusion is already complete. Primary RN notified and proceeded to bedside. 2219 - Returned to patient room to provided RX ordered by [employer]. Pt denies SOB, denies pain or changes to swallow. Only indicates that erythemic rash has spread to left arm and bilateral LE, thighs and popleteal area and feels itchy. Pt denies any hx of allergies. Vital signs stable. Educated to benadryl and Solumedrol. Reinforced safety and Call light in reach.
[2019-10-20] MEDS: levoFLOXacin 750 MG/150 ML PIGGYBACK 100 MG IV (23:27)
[2019-10-21] VITALS (15 sets, daily range): BP systolic 102–145; BP diastolic 48–96; PULSE 74–111; RESP 12–20; TEMP 36.2–36.6; O2SAT 95–99; BMI 34.5
--- NOTE | 2019-10-21 | PATH_ITS ---
[facility] Accession Number: [id number] . 01 Material submitted: . toe - RIGHT 3RD TOE . 01 Clinical history: . INFECTED MIDDLE TOE, RIGHT FOOT R/O OSTEOMYELITIS . 02 Diagnosis: Right Third Toe, Amputation: Skin with ulceration and acute and chronic inflammation extending into the deep soft tissue. Acute osteomyelitis is present. Skin and soft tissue margin with no significant histomorphologic abnormality. [facility] 10/26/2019 1738 Local . 02 Electronically signed: . Lesa Raman MD, Pathologist NPI- [id number] . 01 Gross description: . Specimen A is received in formalin, labeled with patient identification and third toe R/O osteomyelitis. It consists of a digit amputation measuring 4.5 cm in length and 2.4 cm in diameter with a 2.0 cm in length extending of the articular proximal phalangeal bone from the soft tissue and skin margin. The soft tissue and skin margin is grossly viable. The articular surface of the metatarsophalangeal joint is white-sepulveda and smooth without any grossly identified eburnation. The skin is white-sepulveda and wrinkled with a 2.5 x 1.0 cm of sloughing and scaly skin area at the distal end. The skin defect area is on the medial surface/dorsal surface of the specimen, next to the thickening yellow-sepulveda nails and 1.1 cm to the closest skin and soft tissue margin (inked blue). Sectioning reveals yellow-sepulveda and grossly unremarkable bone deep to the skin defect. Manager System sections are submitted in three cassettes. . Summary of sections: A1 - community health representative skin defect area to the soft tissue and skin margin, perpendicular, two pieces. A2 - community health representative articular surface to the bone, perpendicular, one piece (decalcification). A3 - community health representative bone section deep to the skin defect area, one piece (decalcification). ([id number]) /MRV 10/22/2019 1349 Local . 02 Pathologist provided ICD-10: M86.9 . 02 CPT . 214908, [id number] Performed at: 01 [facility] [address] [id number] MD Darien Hirsch MD Phone: [phone] Performed at: 02 [facility] [address] [place] [id number] MD Veronica Haley MD Phone: [phone]
[2019-10-21] MEDS: INSULIN ASPART 100 UNIT/ML INSULN PEN SUBCUT ×4 (03:15→21:01)
[2019-10-21] MEDS: VANCOMYCIN 1,500 MG/300 ML FROZ.PIGGY 200 MG IV ×2 (03:26→16:48)
[2019-10-21 05:05] LABS: Add Manual Diff / Slide Review NO; Basophils Absolute Auto 0 /uL (0-100); Basophils Percent Auto 0.1 % (0-2); Eosinophils Absolute Auto 0 /uL (0-450); Eosinophils Percent Auto 0.2 % (2-4); Hematocrit 42.4 % (41-53); Hemoglobin 14.4 g/dL (13.5-17.5); Lymphocytes Absolute Auto 600 /uL (1100-4500); Lymphocytes Percent Auto 5.3 % (25-40); Mean Corpuscular Hemoglobin 31.6 PG (26-34); Mean Corpuscular Volume 92.8 fL (80-100); Monocytes Absolute Auto 100 /uL (0-900); Monocytes Percent Auto 1.2 % (3-14); Neutrophils Absolute Auto 10100 /uL (1500-7000); Neutrophils Percent Auto 93.2 % (50-75); Platelet Count 215 X10^3/uL (150-400); Red Blood Cell Count 4.57 X10^6/uL (4.5-5.9); Red Cell Distribution Width 13.8 % (11.6-14.8); White Blood Cell Count 10.8 X10^3/uL (4.5-11.0)
[2019-10-21 05:12] LABS: BUN Creatinine Ratio 25.8 (6-22); Blood Urea Nitrogen 25 mg/dL (9-20); Calcium 9.2 mg/dL (8.4-10.2); Carbon Dioxide 20 mmol/L (22-32); Chloride 100 mmol/L (98-107); Estimated Glomerular Filt Rate > 60.0 mL/min (>60); Glucose 339 mg/dL (80-110); HEMOLYSIS < 15 (0-50); Potassium 4.9 mmol/L (3.4-5.1); Sodium 133 mmol/L (137-145)
[2019-10-21 07:46] LABS: Hemoglobin A1C% w Est Avg Glu 11.4 % (4.0-6.0)
[2019-10-21] MEDS: MAGNESIUM SULFATE 2 GM/50 ML PIGGYBACK IV (07:51)
[2019-10-21] MEDS: INSULIN REGULAR 100 UNIT/ML 3 ML VIAL 10 UNIT IV (07:51)
[2019-10-21] MEDS: dilTIAZem CD 180 MG CAP PO (08:50)
[2019-10-21] MEDS: lisinopriL 20 MG TABLET PO (08:50)
[2019-10-21] MEDS: carvediloL 12.5 MG TABLET PO (08:51)
--- NOTE | 2019-10-21 09:33 | P.PN_ITS ---
Subjective Subjective Date Patient Seen: 10/21/19 Interval history: Gorge Torres is a 64-year-old male with a past medical history significant for hypertension, hyperlipidemia, atrial fibrillation on Xarelto, diabetes mellitus type 2, insulin using, with complication of neuropathy who presented to the ED with progressive worsening right 3rd toe pain and swelling. The patient is resting in bed comfortably. He denies pain of right 3rd toe due to diabetic neuropathy. Patient's hemoglobin A1c is 11.4% and his right 3rd toe is unlikely to heal quickly, therefore, podiatry plans on amputation today. Patient has been NPO overnight. Patient has no complaints and denies headache, chest pain, shortness of breath, abdominal pain, nausea, vomiting, fever, chills, dysuria, diarrhea or constipation. Patient is voiding and eliminating without difficulty. Exam Vital Signs (past 8 hours): - 10/21/19 04:20 10/21/19 08:00 Temperature 97.8 F 97.1 F L Pulse Rate 100 H 111 H Respiratory Rate 18 16 Blood Pressure 139/78 144/96 H Pulse Oximetry 99 98 Oxygen Delivery Method Room Air Oxygen Flow Rate 0 Narrative Exam Narrative: General: Older male sitting in bed and in no acute distress, appears older than stated age, well-developed, well-nourished, appropriately interactive. HEENT: Normocephalic, atraumatic. External ears without defect. Pupils equal, round, and reactive to light. Anicteric sclerae, moist conjunctivae, and no lid lag. Oropharynx free of erythema and cobble stoning with moist mucosa. Neck: Supple with full range of motion. No lymphadenopathy or thyromegaly. Cardiovascular: Regular rate and rhythm without murmurs, rubs, or gallops appreciated Pulmonary: Clear to auscultation bilaterally without crackles, wheezes, or rhonchi. Normal respiratory effort with no use of accessory muscles. Abdomen: Bowel tones present. Soft, nontender, nondistended. No hepatos plenomegaly or masses appreciated. Extremities: No clubbing, cyanosis, or edema. Right 3rd toe with claw deformity and erythematous and necrotic appearing tissue of distal portion of toe. Skin: Normal temperature, turgor, and texture; no rash, ulcers, or subcutaneous nodules appreciated. Neurological: Cranial nerves grossly intact. Psychiatric: Normal mood and affect. Alert and oriented to person, place, and time. Objective Labs Result Diagrams: 10/22/19 03:45 10/22/19 03:45 Labs: Laboratory Results - last 24 hr 10/20/19 10/20/19 10/20/19 14:40 14:40 14:40 WBC 8.8 RBC 4.45 L Hgb 13.9 Hct 41.5 MCV 93.2 MCH 31.1 MCHC 33.4 RDW 14.2 Plt Count 222 Neut % (Auto) 74.3 Lymph % (Auto) 15.3 L [place] % (Auto) 8.6 Eos % (Auto) 1.3 L Baso % (Auto) 0.5 Neut # (Auto) 6500 Lymph # (Auto) 1300 [place] # (Auto) 800 Eos # (Auto) 100 Baso # (Auto) 0 Sodium 135 L Potassium 4.4 Chloride 102 Carbon Dioxide 23 BUN 25 H Creatinine 1.08 Estimated GFR > 60.0 BUN/Creatinine Ratio 23.1 H Glucose 227 H Hemoglobin A1c Lactate 1.1 Calcium 9.5 Magnesium Total Bilirubin 0.7 AST 47 ALT 40 Alkaline Phosphatase 109 Total Protein 7.5 Albumin 4.1 Globulin 3.4 Albumin/Globulin Ratio 1.2 COVID-19 PCR 10/20/19 10/20/19 10/21/19 14:40 17:20 04:05 WBC 10.8 RBC 4.57 Hgb 14.4 Hct 42.4 MCV 92.8 MCH 31.6 MCHC 34.0 RDW 13.8 Plt Count 215 Neut % (Auto) 93.2 H Lymph % (Auto) 5.3 L [place] % (Auto) 1.2 L Eos % (Auto) 0.2 L Baso % (Auto) 0.1 Neut # (Auto) 74684 H Lymph # (Auto) 600 L [place] # (Auto) 100 Eos # (Auto) 0 Baso # (Auto) 0 Sodium Potassium Chloride Carbon Dioxide BUN Creatinine Estimated GFR BUN/Creatinine Ratio Glucose Hemoglobin A1c Lactate Calcium Magnesium 1.5 L Total Bilirubin AST ALT Alkaline Phosphatase Total Protein Albumin Globulin Albumin/Globulin Ratio COVID-19 PCR Negative 10/21/19 10/21/19 04:05 04:08 WBC RBC Hgb Hct MCV MCH MCHC RDW Plt Count Neut % (Auto) Lymph % (Auto) [place] % (Auto) Eos % (Auto) Baso % (Auto) Neut # (Auto) Lymph # (Auto) [place] # (Auto) Eos # (Auto) Baso # (Auto) Sodium 133 L Potassium 4.9 Chloride 100 Carbon Dioxide 20 L BUN 25 H Creatinine 0.97 Estimated GFR > 60.0 BUN/Creatinine Ratio 25.8 H Glucose 339 H D Hemoglobin A1c 11.4 H Lactate Calcium 9.2 Magnesium Total Bilirubin AST ALT Alkaline Phosphatase Total Protein Albumin Globulin Albumin/Globulin Ratio COVID-19 PCR Assessment & Plan Assessment & Plan narrative: Gorge Torres is a 64-year-old male with a past medical history significant for hypertension, hyperlipidemia, atrial fibrillation on Xarelto, diabetes mellitus type 2, insulin using, with complication of neuropathy who presented to the ED with progressive worsening right 3rd toe pain and swelling. 1. Acute diabetic right 3rd toe ulceration with cellulitis and osteomyelitis of distal phalanx, present on admission. Active. -Patient has had wound of 3rd right toe for 3-4 weeks which started with an abrasion and progressively worsened. The patient is followed by Podiatry but has not been seen for over 1 month. -Wound culture and Gram stain of the right 3rd toe preliminarily growing 4+ Gram-positive cocci. -X-ray of right foot demonstrates erosive changes of distal phalanx. -Received vancomycin 2000 mg IV x1 in the ED. Continue vancomycin with dosing per pharmacist and levofloxacin 750 mg IV daily. Patient received Zosyn with urticarial reaction, therefore, this was discontinued immediately and listed as an allergy and he received methylprednisolone 60 mg IV x1 and Benadryl 50 mg IV x1. -Consulted Podiatry, Dr. Jj, who plans to perform a right 3rd toe amputation today. We appreciate her time and recommendations. Patient NPO. Xarelto has been held. 2. Diabetes mellitus type 2, insulin using, chronic, present on admission, stable. -Hemoglobin A1c 11.4% indicative of poor glycemic control with complication of peripheral neuropathy and higher risk of poor wound healing. -Continue home Lantus 10 units daily at bedtime. Held metformin. -Continue ACHS blood glucose checks and low-dose correctional scale insulin. -Continue carbohydrate consistent/heart healthy diet postoperatively. 3. Persistent atrial fibrillation, chronic, present on admission. Stable. -Patient denies complaints of chest pain or shortness of breath. Currently in atrial fibrillation. -Continue home carvedilol 12.5 mg daily and diltiazem 180 mg daily. Held Xa relto 20 mg daily for planned procedure as above. 4. Hypertension, chronic, present on admission. Stable. -Continue home carvedilol 12.5 mg daily, diltiazem 180 mg daily, and lisinopril 20 mg daily. 5. Hyperlipidemia, chronic, present on admission. Stable. -Continue home atorvastatin 40 mg daily at bedtime. Code status: Full code VTE prophylaxis: Xarelto which has been held for planned procedure. Disposition: Patient likely discharge home in 1-2 days once recovered from toe amputation and infection improved and/or resolved.
--- NOTE | 2019-10-21 09:42 | PM.CN ---
History of Present Illness Consult details Date Patient Seen: 10/21/19 Time Patient Seen: 09:42 Chief complaint: Infected Middle Toe, Right Foot Reason for consult: Right third toe ulcer, cellulitus, possible bone infection. Requesting provider: Princess Valdez Narrative: 64 yo male with diabetic neuropathy is seen bedside on consultation from Dr. Princess Valdez with concerning ulceration and cellulitis to the right third toe. He has had problems with the toe getting callused and sees a fresh work wrapper layer but it has been a while. A similar thing happened to his left foot and he underwent a lengthy process of wound care and antibiotics but ultimately it healed. He noticed the toe getting red and swollen and presented to the Emergency Dept at [facility] where he was admitted yesterday (10/20/2019) for medical management as his blood glucose was quite elevated and iv antibiotics. Meds Home Medications and Allergies Home Medications Medication Instructions Recorded Confirmed Type aspirin [Adult Low Dose Aspirin] 81 mg PO DAILY 10/20/19 10/20/19 History atorvastatin 40 mg PO BEDTIME 10/20/19 10/20/19 History carvedilol 12.5 mg PO DAILY 10/20/19 10/20/19 History diltiazem HCl 180 mg PO DAILY 10/20/19 10/20/19 History insulin glargine [Lantus U-100 10 unit SUBCUT BEDTIME 10/20/19 10/20/19 History Insulin] lisinopril 20 mg PO DAILY 10/20/19 10/20/19 History metformin 500 mg PO BID 10/20/19 10/20/19 History rivaroxaban [Xarelto] 20 mg PO QPM 10/20/19 10/20/19 History Allergies Allergy/AdvReac Type Severity Reaction Status Date / Time piperacillin [From Zosyn] Allergy Severe Uticaria Verified 10/20/19 22:50 tazobactam [From Zosyn] Allergy Severe Uticaria Verified 10/20/19 22:50 Review of Systems Constitutional Constitutional: Reports as per HPI Exam Vital Signs (past 8 hours): - 10/21/19 04:20 10/21/19 08:00 Temperature 97.8 F 97.1 F L Pulse Rate 100 H 111 H Respiratory Rate 18 16 Blood Pressure 139/78 144/96 H Pulse Oximetry 99 98 Oxygen Delivery Method Room Air Oxygen Flow Rate 0 Const General: cooperative Orientation: alert, awake and oriented x3 HENMT Head: normal to inspection Ears: hearing grossly normal bilaterally Eyes EOM: EOM intact bilaterally Resp Effort & Inspection: normal respiratory effort Extrem Other: Right foot wound at tip of third toe, ulcerated and redness throughout entire third toe. There is some edema to the third toe and increased warmth. No crepitus. There is moisture but no purulent discharge. No red streaking. Ulcer has hyperkeratosis surrounding it and fibrous and necrotic tissue. No bone is exposed but difficult to determine if able to probe to it, as quite a bit of fibrous tissue. There is large thick nail dystrophic on this toe as well. DP 1/4, PT 2/4. The CFT unavailable to the affected digit, but appears ~4 to the remaining toes. All toes in digital contracture, and all minimally flexible at the DIPJ and PIPJs. Sensation lost to the toes and foot. Fourth toe has some adductovarus attitude to it. Objective Imaging Right toes x-ray: My impression: 3 views NWB right toes taken 10/20/2019 show multiple digital contractures. Some erosions noted to the toe tip #3, no gas in tissues. No acute cortical disruptions. Labs Result Diagrams: 10/21/19 04:05 10/21/19 04:05 Labs: Laboratory Results - last 24 hr 10/20/19 10/20/19 10/20/19 14:40 14:40 14:40 WBC 8.8 RBC 4.45 L Hgb 13.9 Hct 41.5 MCV 93.2 MCH 31.1 MCHC 33.4 RDW 14.2 Plt Count 222 Neut % (Auto) 74.3 Lymph % (Auto) 15.3 L Caldwell % (Auto) 8.6 Eos % (Auto) 1.3 L Baso % (Auto) 0.5 Neut # (Auto) 6500 Lymph # (Auto) 1300 Caldwell # (Auto) 800 Eos # (Auto) 100 Baso # (Auto) 0 Sodium 135 L Potassium 4.4 Chloride 102 Carbon Dioxide 23 BUN 25 H Creatinine 1.08 Estimated GFR > 60.0 BUN/Creatinine Ratio 23.1 H Glucose 227 H Hemoglobin A1c Lactate 1.1 Calcium 9.5 Magnesium Total Bilirubin 0.7 AST 47 ALT 40 Alkaline Phosphatase 109 Total Protein 7.5 Albumin 4.1 Globulin 3.4 Albumin/Globulin Ratio 1.2 COVID-19 PCR 10/20/19 10/20/19 10/21/19 14:40 17:20 04:05 WBC 10.8 RBC 4.57 Hgb 14.4 Hct 42.4 MCV 92.8 MCH 31.6 MCHC 34.0 RDW 13.8 Plt Count 215 Neut % (Auto) 93.2 H Lymph % (Auto) 5.3 L Caldwell % (Auto) 1.2 L Eos % (Auto) 0.2 L Baso % (Auto) 0.1 Neut # (Auto) 24239 H Lymph # (Auto) 600 L Caldwell # (Auto) 100 Eos # (Auto) 0 Baso # (Auto) 0 Sodium Potassium Chloride Carbon Dioxide BUN Creatinine Estimated GFR BUN/Creatinine Ratio Glucose Hemoglobin A1c Lactate Calcium Magnesium 1.5 L Total Bilirubin AST ALT Alkaline Phosphatase Total Protein Albumin Globulin Albumin/Globulin Ratio COVID-19 PCR Negative 10/21/19 10/21/19 04:05 04:08 WBC RBC Hgb Hct MCV MCH MCHC RDW Plt Count Neut % (Auto) Lymph % (Auto) Caldwell % (Auto) Eos % (Auto) Baso % (Auto) Neut # (Auto) Lymph # (Auto) Caldwell # (Auto) Eos # (Auto) Baso # (Auto) Sodium 133 L Potassium 4.9 Chloride 100 Carbon Dioxide 20 L BUN 25 H Creatinine 0.97 Estimated GFR > 60.0 BUN/Creatinine Ratio 25.8 H Glucose 339 H D Hemoglobin A1c 11.4 H Lactate Calcium 9.2 Magnesium Total Bilirubin AST ALT Alkaline Phosphatase Total Protein Albumin Globulin Albumin/Globulin Ratio COVID-19 PCR Assessment & Plan Assessment & Plan narrative: Gorge Torres is a 64-year-old male with a past medical history significant for hypertension, hyperlipidemia, atrial fibrillation on Xarelto, diabetes mellitus type 2, insulin using, with complication of neuropathy who presented to the ED with progressive worsening right 3rd toe pain and swelling. 1. Diabetic ulcer 3rd toe right foot with cellulitis, acute, present on admission, active. -the patient has had wound to the toe for 3-4 weeks starting with an abrasion and progressively worsening. -wound culture and Gram stain of the right 3rd toe finds 4+ Gram-positive cocci. -patient started on vancomycin 2000 mg IV in the ER, ordered vancomycin pharmacy to dose. -pending intraoperative cultures. 2. Osteomyelitis of the 3rd distal phalanx, acute, present on admission, active. -plain x-ray of the toe reveals early erosive changes to the distal phalanx, possible traumatic changes to the toe versus bone infection. -biomechanics of the toe suggests that this will be a continued concern of possible breakdown of the tissue of the toe into ulceration and we are suspicious of osteomyelitis to the toe tip -discussed option of aggressive toe debridement with outpatient antibiotics after bone culture and NWB with wound care versus removal of the toe. Had opportunity to discuss recovery and pros and cons of each direction. It is this physician's suggestion that healing will be faster and more complete with the amputation of the toe and no loss of balance. He may need more careful care of the 4th toe and 2nd toe as they could minorly encroach in this area, but appear to be doing this already. He discussed his questions and decided he would like the third toe amputation. The MRI is suspended. -deep tissue cultures will be taken -patient is on antibiotics as above -consent will be signed prior to surgery and is scheduled for this morning 3. Insulin-dependent diabetes type 2 with neuropathy, chronic -discussed with hospitalist and she is working to continue control while in house -ok to undergo surgical procedure today 4. Persistent Atrial fibrillation, present on admission, active. -patient presently in atrial fibrillation and is not aware of going in and out of the rhythm, he reports no palpitations. -the patient denies complaints of chest pain or shortness of breath. -will continue anticoagulation with Xarelto 20 mg daily although temporary suspension for surgery today. -medicine to continue to follow, and relates ok to undergo surgical procedure today 5. Hypertension, chronic, stable -medicine to continue to follow COVID-19 COVID-19 status: Negative Result date/Date tested (Pos, Neg/Pending): 10/20/19
--- NOTE | 2019-10-21 10:27 | PT-IP ANOTE ---
Pt is scheduled for surgery this morning. Will assess pt after surgery is done and if he is medically stable.
[2019-10-21] MEDS: LACTATED RINGERS 1,000 ML 42 ML IV (11:00)
[2019-10-21] MEDS: INSULIN ASPART 100 UNIT/ML 10ML VIAL 6 UNIT IV (11:05)
--- NOTE | 2019-10-21 11:18 | PM.PREOP ---
Pre-operative Note COVID-19 COVID-19 status: Negative Result date/Date tested (Pos, Neg/Pending): 10/20/19 Interval Note History & Physical reviewed/Exam performed by Physician: Yes Changes to H&P: No
--- NOTE | 2019-10-21 11:19 | P.OP_ITS ---
Operative Date/Time/Diagnoses Date of procedure: 10/21/19 Time of procedure: 11:19 Pre-op diagnosis: Right third toe cellulitis, diabetic ulceration, hammertoe, suspected osteomyelitis Post-op diagnosis: same Procedure & Clinicians Procedure: Right third toe amputation Same procedure as scheduled: Yes Indications: Hammertoe with cellulitis, diabetic ulcer, suspected osteomyelitis. Surgeon: Gaviota Jj Click Yes if Unassisted: Yes Anesthesia Type: Sedation and Local Operative Notes Closure Type: primary Specimen(s): other (1) Deep tissue culture from thrird metatarsal head right foot, aerobic/anaerobic and 2) Right third toe to pathology) Estimated Blood Loss (mL): 20 Blood products transfused: none Tourniquet time (min): 6 Procedure in detail: The patient was brought to the operating room and placed on the operating table in the supine position. The tourniquet was placed about the right ankle. Well padded and appropriately aligned. After induction of sedation, local anesthesia was obtained to the foot and ankle. The foot and ankle were prepped and draped in the usual aseptic manner. The tourniquet was inflated. After check of anesthesia a full-thickness circumferential incision was made around the 3rd right toe. This was then continued into the metat arsophalangeal joint linearly. The toe was carefully disarticulated. The toe was sent to pathology for identification and deep tissue cultures were performed in the 3rd metatarsal head area for Gram stain, anaerobic and aerobic. The area was irrigated with copious amounts of normal sterile saline. No necrotic tissue or abscesses were noted with the remaining tissue. Skin and tissue was revised to allow for appropriate closure. The tourniquet was deflated, prompt hyperemic response was seen to the foot. Vessels were cauterized and ligated as necessary. 4-0 Vicryl was used subcutaneously for closure and 2-0 nylon and 4 0 nylon for the skin. The area was dressed with a sterile lightly compressive dressing. Complications: none Post-operative Condition: stable Disposition: PACU Plan for aftercare: Following a period of postoperative monitoring, the patient will be re-injuring the postsurgical floor for medical management and postoperative care. Once appropriate for discharge to home medically, he will be seen in our clinic in approximately 7 days for a dressing change and results of culture. In approximately 2-3 weeks the sutures will be removed. From now until that time he should be nonweightbearing to the foot. He will continue his IV antibiotics as deemed appropriate medically or until appears unnecessary while in house.
--- NOTE | 2019-10-21 11:20 | CM.DANOTE ---
DCP:Case received, EMR reviewed and met with patient. Introduced self and role. Was able to meet with patient and obtain information regarding his baseline activity level and living situation. DCP assessment completed with information currently available. Patient is a 64 year old male who admitted yesterday afternoon to the care of the hospitalist team. PCP: Dr. Masterson. Payer: confirmed: Medicare/[employer]. Patient came to the hospital via private vehicle secondary to his right third toe noting increased redness. According to patient, this had been going on for several days, should have come in sooner. Patient has seen podiatrists in [place], and stated, he was not able to get an appointment. Patient is a diabetic, stated that he takes Lantus. He is currently employed at [employer], which is [employer]. He is independent at baseline, resides in [place] with his spouse, Jess. He mentioned that he has also gone to the wound clinic in the past. P: DCP to continue to follow. Patient will be having 3rd toe amputated, has seen the agricultural chemicals inspector today. Mentioned to hospitalist if patient may need snf antibiotics, but since he is having amputation, may not need. Funmilayo Pendleton RN/Sql Dba
--- NOTE | 2019-10-21 11:41 | SUR.OPER ---
Supine on padded OR bed, head on pillow, arms secured on padded arm boards at <90 degrees abduction, legs uncrossed, safety belt at thigh, tape over blanket over lower legs.
[2019-10-21] MEDS: BUPIVACAINE 0.5% (PF) VIAL 10 ML INJ (11:52)
[2019-10-21] MEDS: LIDOCAINE 2% INJ MDV 20 ML INJ (11:53)
--- NOTE | 2019-10-21 16:58 | PT.IIE ---
Current Diagnoses Cellulitis of right toe (10/20/19) Surgery Performed Operation Date: 10/21/19 10:15 Actual Procedures p 3rd Toe Amputation(Right) - Gaviota Jj DPM Surgical History (Last Reviewed 10/21/19 @ 09:47 by Gaviota Jj DPM) History of hernia repair (Acute) History of neck surgery (Acute) Medical History (Last Reviewed 10/21/19 @ 09:47 by Gaviota Jj DPM) Afib (Acute) Diabetes (Acute) Hyperlipidemia (Acute) Hypertension (Acute) Neuropathy of both feet (Acute) Physical Therapy Inpatient Evaluation/Re-Eval M1 PT/OT-IP Prior Functional Status Start: 10/21/19 08:46 Freq: NEEDED Status: Active Protocol: Document 10/21/19 14:15 HH (Rec: 10/21/19 16:57 [id number]) Medical Review Prior Functional Status Medical History Reviewed Yes Communication independent Mobility and Gait independent for mobility and 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 Pt has neuropathy on both feet d/t diabetes Activities of Daily Living and IADL's independent for all ADLs and IADLs without AD Social History Household Members spouse Living Arrangements House Number of Floors (Floors) One Floor Number of Stairs To Enter/Railing? 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 She is active and independent but she is not working so she will be primary CG for pt. Pt works at [employer] Pt also has a hx of wound care clinic last year for his feet. Pt also stated he sleeps in a recliner. M2 PT-IP Current Condition Start: 10/21/19 08:46 Freq: NEEDED Status: Active Protocol: Document 10/21/19 14:15 HH (Rec: 10/21/19 16:57 [email or web address]) Physical Therapy Current Condition Current Condition Evaluation Date 10/21/19 Treatment Diagnosis Amputation of R 3rd toe d/t diabetic ulcer, difficulty in walking Onset Date 10/21/19 Weight Bearing Status Weight Bearing Status Non-Weight Bearing Allowed Weight Bearing Amount (enter % Per surgical note, From now or #) (%) until that time he should be nonweightbearing to the foot. M3 PT-IP Subjective Start: 10/21/19 08:46 Freq: NEEDED Status: Active Protocol: Document 10/21/19 14:15 (Rec: 10/21/19 16:57 [email or web address]) Subjective Physical Therapy Visit Type Type Initial Evaluation Visit Start Time 14:15 Visit Stop Time 15:00 Total Visit Minutes 45 Notes pt's at bedside. Number of [employer] Visits 0 Physical Therapy Visit Comments Patient Comments My R foot is feeling numb and i know that i cant put weight on it Patient Goals to return home with . Therapy Pain Assessment Pain When Pain Assessed During Mobility Pain Present Pain Present Pain Reported Location r foot Scale Used CisnerosShakeel (Faces) Description Aching Pain Behaviors Facial Grimacing M4 PT-IP Mobility and Gait Start: 10/21/19 08:46 Freq: NEEDED Status: Active Protocol: Document 10/21/19 14:15 (Rec: 10/21/19 16:57 [email or web address]) PT-Bed Mobility Assessment Supine to Sit Supine to Sit Standby Assistance,Head of Bed Elevated,Bedrails Scooting Scooting to Edge of Bed Standby Assistance PT-Transfer Assessment Sit to and From Stand Sit to and from Stand Contact Guard Assistance, Minimal Assistance,Use of Upper Extremities Equipment Transfer Assistive Device Gait Belt,Front Wheeled Walker Orthotic/Prosthetic Devices or Brace: No Transfers Transfer Destination Bed,Chair Transfer Technique hopping Transfer Ability Level of Assist Minimal Assistance,Use of Upper Extremities Comments Mobility Comments pt was in bed with at bedside upon assessment. BP 124/74 This Pt educated pt regarding pt's NWB status with R foot. Pt then agreed to mobilize with PT to bedside chair. He was able to sit at L side EOB from elevated head of bed with SBA ( pt sleeps in a recliner at home.) Pt then stood up with cues on using 1 UE on bed and walker to push off with CGA/min A. He then needed min A for walker management during pivot transfer. He used a mini hop by WB most of his weight via UEs.Pt took approx 8 little hops to pivot and he was able to slowly descend himself to bedside chair. Pt was slow and slight unsteady possibly d/t limited arm strength. He then sat in chair comfortably. Discussed with pt to acquire FWW/ scooter, shower chair and BSC for home use. Provided list of DME vendors. call light placed within reach. Gait Assessment Comments Gait Comments unable to complete Stair Climbing Assessment Comments Stair Climbing Comments unable to complete PT-Balance Assessment Sitting Balance and Reactions Static Sitting Balance Ability Normal Dynamic Sitting Balance Ability Normal Standing Balance and Reactions Static Standing Balance Ability Good Dynamic Standing Balance Ability Fair Device Used FWW M5 PT-IP Objective Assessments Start: 10/21/19 08:46 Freq: NEEDED Status: Active Protocol: Document 10/21/19 14:15 HH (Rec: 10/21/19 16:57 [email or web address]) Orientation Orientation/Cognition Level of Alertness Alert Orientation Name,Age,Birthday,Month,Date, Year,Day of Week,Place, Situation Language Function Ability No Deficits Noted Safety Awareness Understands Safety Issues Memory Description No Deficits Noted Gross Range of Motion Upper Extremity ROM Assessment Within Functional Limits Lower Extremity ROM Assessment Right Impaired Impairments R foot with compression sock and concepcion wrap post op swelling at R calf noted. Strength Upper Extremity Strength Assessment Within Functional Limits Lower Extremity Strength Assessment Right Impaired Coordination Assessment Gross Coordination Gross Coordination WNL M6 PT-IP Treatment Start: 10/21/19 08:46 Freq: NEEDED Status: Active Protocol: Document 10/21/19 14:15 HH (Rec: 10/21/19 16:57 [email or web address]) Physical Therapy Treatment Education Education Provided Precautions,Weight Bearing Status,Safety M7 PT-IP Assessment and Plan Start: 10/21/19 08:46 Freq: NEEDED Status: Active Protocol: Document 10/21/19 14:15 HH (Rec: 10/21/19 16:57 [email or web address]) PT Summary Assessment and Plan Potential Rehabilitation Potential Excellent Status of Condition at Evaluation Stable Summary Impairments Pain,ROM,Strength,Balance,Bed Mobility,Transfers,Gait, Activity Tolerance Assessment Summary This is a low complexity evaluation for this 64yo male s/p amputation of R 3rd toe d/ t diabetic ulcer. 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 Upon assessment, Pt's R foot is NWB (will check with surgeon if pt is appropriate for forefoot off loading shoes) and needed to use FWW with min A for bed to chair stand step transfer (mini hop). Pt was slightly unsteady and needed cues for walker management. Discussed with pt to acquire FWW/ scooter, shower chair and BSC for home use if he goes home. Also recommended skilled care if pt showed limited progress. Will cont monitor pt's progress and provide appropriate d/c destination. At this point, SNF or home health will be ideal for pt and 's safety Goals Bed Mobility Goal Standby Assistance Transfer Goal Standby Assistance,Front Wheeled Walker Gait Goal Standby Assistance,Front Wheel Walker Gait Distance 20 Other Goals complete 2 platform steps to enter house Days to Meet Goals 5 Frequency of Treatment Frequency Of Treatment Twice a Day Treatment Plan Physical Therapy Treatment Plan Bed Mobility Training,Transfer Training,Gait Training, Therapeutic Exercise,Balance Retraining,Post Op Education, Neuromuscular Re-ed Other Recommendations and Next Treatment cont transfer training with Focus FWW gait training if possible forefoot off loading shoes/ heel WB? Recommendations To Nursing Amount of Assist Needed 1 Person Assist Discharge Recommendations PT Discharge Recommendations Home with Assistance,Home Health,SNF Rehab Equipment Needed for Home Before Discussed with pt to acquire Discharge FWW/ scooter, shower chair and BSC for home use. Provided list of DME vendors Transportation Needs at Discharge Private Vehicle
[2019-10-21] MEDS: SODIUM CHLORIDE 0.9% FLUSH 10 ML IV (20:58)
[2019-10-21] MEDS: METFORMIN HCL 500 MG TABLET PO (20:58)
[2019-10-21] MEDS: ATORVASTATIN 20 MG TABLET 40 MG PO (20:59)
[2019-10-21] MEDS: INSULIN GLARGINE 100 UNIT/ML 3ML PEN 10 UNIT SUBCUT (21:00)
[2019-10-21] MEDS: levoFLOXacin 750 MG/150 ML PIGGYBACK 100 MG IV (22:50)
[2019-10-22 00:20] VITALS: BP 120/72; PULSE 58; RESP 16; TEMP 36.7; O2SAT 98
[2019-10-22] MEDS: VANCOMYCIN 1,500 MG/300 ML FROZ.PIGGY 200 MG IV (03:49)
[2019-10-22 04:00] LABS: Add Manual Diff / Slide Review NO; Basophils Absolute Auto 100 /uL (0-100); Basophils Percent Auto 0.9 % (0-2); Eosinophils Absolute Auto 100 /uL (0-450); Eosinophils Percent Auto 0.6 % (2-4); Hematocrit 41.6 % (41-53); Hemoglobin 13.6 g/dL (13.5-17.5); Lymphocytes Absolute Auto 1400 /uL (1100-4500); Lymphocytes Percent Auto 11.2 % (25-40); Mean Corpuscular HGB Conc 32.7 % (30-36); Mean Corpuscular Hemoglobin 30.6 PG (26-34); Mean Corpuscular Volume 93.5 fL (80-100); Monocytes Absolute Auto 1100 /uL (0-900); Monocytes Percent Auto 8.5 % (3-14); Neutrophils Absolute Auto 10100 /uL (1500-7000); Neutrophils Percent Auto 78.8 % (50-75); Platelet Count 230 X10^3/uL (150-400); Red Blood Cell Count 4.45 X10^6/uL (4.5-5.9); Red Cell Distribution Width 14.3 % (11.6-14.8); White Blood Cell Count 12.8 X10^3/uL (4.5-11.0)
[2019-10-22 04:12] LABS: Alanine Aminotransferase 33 IU/L (<50); Albumin 3.6 g/dL (3.5-5.0); Albumin Globulin Ratio 1.1 (1.0-2.8); Alkaline Phosphatase 87 U/L (38-126); Aspartate Aminotransferase 35 IU/L (17-59); BUN Creatinine Ratio 25.8 (6-22); Bilirubin Total 0.8 mg/dL (0.2-1.3); Blood Urea Nitrogen 24 mg/dL (9-20); Calcium 9.3 mg/dL (8.4-10.2); Carbon Dioxide 25 mmol/L (22-32); Chloride 104 mmol/L (98-107); Estimated Glomerular Filt Rate > 60.0 mL/min (>60); Globulin 3.2 g/dL (1.7-4.1); Glucose 208 mg/dL (80-110); HEMOLYSIS < 15 (0-50); Magnesium 1.7 mg/dL (1.6-2.3); Potassium 4.6 mmol/L (3.4-5.1); Sodium 136 mmol/L (137-145); Total Protein 6.8 g/dL (6.3-8.2)
[2019-10-22 04:20] VITALS: BP 126/85; PULSE 74; RESP 16; TEMP 36.4; O2SAT 99
[2019-10-22 04:22] LABS: Vancomycin Trough 14.2 ug/mL (10-20)
[2019-10-22 04:23] LABS: Procalcitonin < 0.05 ng/mL (<0.5)
[2019-10-22 08:00] VITALS: BP 132/79; PULSE 85; RESP 16; TEMP 36.2; O2SAT 98
--- NOTE | 2019-10-22 08:10 | PM.PNPO.1 ---
Subjective Subjective Date Patient Seen: 10/22/19 Time Patient Seen: 08:10 Interval history: s/p 1 day right third toe amputation. He is doing well, slept better and no pain to the foot. Voiding and eating. Met with phys therapy yesterday. He states he forgot to call in to work to let them know he would not be in today but after they contacted him they were ok with him being off. Denies f/c/n/v. Exam Vital Signs (past 8 hours): - 10/22/19 00:20 10/22/19 04:20 Temperature 98.0 F 97.5 F L Pulse Rate 58 L 74 Respiratory Rate 16 16 Blood Pressure 120/72 126/85 Pulse Oximetry 98 99 Oxygen Delivery Method Room Air Oxygen Flow Rate 0 Const General: cooperative Orientation: alert, awake and oriented x3 Extrem Other: Right foot dressing shows no strikethrough, just a little bit of bleeding at the gauze on the interspace where the digit was removed. Toes otherwise well perfused and no erythema noted from inspection distally under the bandaging. Able to mobilize DF and PF. No pain. Objective Labs Result Diagrams: 10/22/19 03:45 10/22/19 03:45 Labs: Laboratory Results - last 24 hr 10/22/19 10/22/19 10/22/19 03:45 03:45 03:45 WBC 12.8 H RBC 4.45 L Hgb 13.6 Hct 41.6 MCV 93.5 MCH 30.6 MCHC 32.7 RDW 14.3 Plt Count 230 Neut % (Auto) 78.8 H Lymph % (Auto) 11.2 L [place] % (Auto) 8.5 Eos % (Auto) 0.6 L Baso % (Auto) 0.9 Neut # (Auto) 10281 H Lymph # (Auto) 1400 [place] # (Auto) 1100 H Eos # (Auto) 100 Baso # (Auto) 100 Sodium 136 L Potassium 4.6 Chloride 104 Carbon Dioxide 25 BUN 24 H Creatinine 0.93 Estimated GFR > 60.0 BUN/Creatinine Ratio 25.8 H Glucose 208 H D Calcium 9.3 Magnesium 1.7 Total Bilirubin 0.8 AST 35 ALT 33 Alkaline Phosphatase 87 Total Protein 6.8 Albumin 3.6 Globulin 3.2 Albumin/Globulin Ratio 1.1 Procalcitonin < 0.05 Vancomycin Trough 10/22/19 03:45 WBC RBC Hgb Hct MCV MCH MCHC RDW Plt Count Neut % (Auto) Lymph % (Auto) [place] % (Auto) Eos % (Auto) Baso % (Auto) Neut # (Auto) Lymph # (Auto) [place] # (Auto) Eos # (Auto) Baso # (Auto) Sodium Potassium Chloride Carbon Dioxide BUN Creatinine Estimated GFR BUN/Creatinine Ratio Glucose Calcium Magnesium Total Bilirubin AST ALT Alkaline Phosphatase Total Protein Albumin Globulin Albumin/Globulin Ratio Procalcitonin Vancomycin Trough 14.2 Micro: Comment 3rd metatarsal head, deep tissue Procedure Result Verified Site Gram Stain Final 10/22/19 No cells/ Organisms seen No cells or organisms seen White blood cells No WBC seen Aerobic Culture for wounds Pending Anaerobic Culture Final 10/22/19 Test not performed Path: Awaiting results. Assessment & Plan Post-op Postoperative Procedures: Procedures Operation Date: 10/21/19 10:15 Actual Procedures Side Surgeon p 3rd Toe Amputation Right Gaviota Jj DPM Postoperative day: 1 Postoperative status: doing well Postoperative status narrative: Doing well postoperative day one with no new cellulitis, afebrile, and feels improved. Dressing intact. Slight increase in WBC likely reactive from surgery yesterday. Gram stain negative for deep tissue swab, and pending aerobic/anaerobic cultures. Has not yet received post op shoe but has had some training on partial to NWB status with PT using walker. Postoperative plan: routine post-op care Postoperative plan narrative: 1. Ok to keep dressing intact and have changed with his first post op appt at my office on Saturday or Saturday of next week, unless there is noted bleeding or strikethrough beyond what he has on exam today. Do not get foot wet. 2. Please make appt to have him see me for post op visit with Gaviota Jj DPM at [facility] in [place] on Saturday or Saturday [phone]. 3. Should attempt to be NWB on surgical foot with walker or roll-about scooter. Ok for partial touchdown flat foot periodically or if he uses an Ipos Wedge-style post op shoe, that is ok as well. 4. Discussed his work status and he may need a note to be off work at least until he sees me for his first post op visit. 5. Discussed current results of cultures/gram stain with he and hospitalist. Suspecting his WBC is reactive from yesterday, plan to d/c to home on oral abx very short course to allow for finish of a ~7-10 day course. Ok for MSSA-susceptible antibiotic such as Keflex empirically. 6. Hospitalist reviewed that barring any concerns they may plan for d/c to home in the next 24 hours. Thank you for the opportunity to share in treatment of your patient. Time Spent With Patient Time with patient: 15-24 minutes
--- NOTE | 2019-10-22 08:20 | P.DS_ITS ---
History of Present Illness History of Present Illness Date Patient Seen: 10/20/19 Chief complaint: Infected Middle Toe, Right Foot Narrative: Written by Richar CASTANEDA: Mr. Gorge Torres is a 64-year-old male with a past medical history significant for atrial fibrillation on Xarelto, diabetes with neuropathy, hypertension and hyperlipidemia who presents to the ER with toe pain and swelling. The patient reports that he sustained abrasion on his toe walking barefoot 3-4 weeks ago. He has significant neuropathy of the feet and presents to the ER today with increased pain swelling and redness. The patient denies complaints systemic symptoms and reports no fevers or chills or elevated blood sugars. Patient has had no recent illness and denies known COVID-19 exposure. He has had no headaches or dizziness, nasal congestion or sore throat. He gordon es complaints of chest pain and has chronic atrial fibrillation is aware of his irregular rhythm. He reports no shortness of breath, cough or wheezing. He denies complaints of heartburn or abdominal pain and has no nausea, vomiting or diarrhea. The patient is independent in all ADLs and ambulatory with no assistive devices. Upon arrival the ER the patient has temperature 97.2?, heart rate of 83, blood pressure 144/92, respirations of 18 saturating 98% on room air. Imaging is obtained finding early erosive changes to the distal phalanx the 3rd toe. On laboratory analysis the patient has a white count of 8.8, hemoglobin of 13.9, hematocrit of 41.5, platelets of 222. His electrolytes are all within normal limits and has a BUN of 25 and a creatinine of 1 point at 0 8. His blood sugar is 227. His LFTs are all within normal limits. He has lactic acid of 1.1. COVID-[address] Valdez orthopedist is contacted through the emergency department to evaluate the patient's wound with concern for osteomyelitis. The patient is admitted to the medicine service for diabetic cellulitis. Discharge Providers Provider Date of admission: 10/20/19 17:23 Discharge Date: 10/22/19 Primary care physician: Yanet Masterson MD Consults: 10/20/19 17:24 Consult to Orthopedic Surgery Routine Comment: Consulting Provider: Princess Valdez Reason for consultation: Osteomyelitis of right 3rd toe Has provider been notified: Yes 10/20/19 20:19 Consult to Dietitian, Adult Routine Comment: Reason For Exam: Diabetic with hyperglycemia Consult to Discharge Planning Routine Comment: Consult to Physical Therapy Evaluate & Treat Comment: Diabetic with foot ulcer cellulitis Physician Instructions: Evaluate and Treat 10/21/19 13:00 Consult to Physical Therapy Evaluate & Treat Comment: Ok for periodic flat touchdown of foot. Physician Instructions: Teach NWB right foot, Disp post op shoe Discharge provider: Svetlana Kurtz DO Summary Hospital Course Discharge Diagnosis: 1. Acute diabetic right 3rd toe ulceration with cellulitis and osteomyelitis of distal phalanx, present on admission. Resolving 2. Diabetes mellitus type 2, insulin using, chronic, present on admission. Stable. 3. Persistent atrial fibrillation, chronic, present on admission. Stable. 4. Hypertension, chronic, present on admission. Stable. 5. Hyperlipidemia, chronic, present on admission. Stable. Hospital Course: Gorge Torres is a 64-year-old male with a past medical history significant for hypertension, hyperlipidemia, atrial fibrillation on Xarelto, diabetes mellitus type 2, insulin using, with complication of neuropathy who presented to the ED with progressive worsening right 3rd toe pain and swelling. 1. Acute diabetic right 3rd toe ulceration with cellulitis and osteomyelitis of distal phalanx, present on admission. Resolving -Patient has had wound of 3rd right toe for 3-4 weeks which started with an abrasion and progressively worsened. The patient is followed by Podiatry but has not been seen for over 1 month. -Wound culture grew MSSA. Wound cultures from toe amputation preliminarily have no growth. -X-ray of right foot demonstrates erosive changes of distal phalanx. -Received vancomycin 2000 mg IV x1 in the ED. Continued vancomycin with dosing per pharmacist and levofloxacin 750 mg IV daily. Patient was discharged on levofloxacin 750 mg daily for 5 additional days to complete total of 7 days of antibiotic therapy per podiatry recommendation.Patient received Zosyn with urticarial reaction, therefore, this was discontinued immediately and listed as an allergy and he received methylprednisolone 60 mg IV x1 and Benadryl 50 mg IV x1. -Consulted Podiatry, Dr. Jj, who performed a right 3rd toe amputation. Continued physical therapy and occupational therapy evaluation and treatment. Patient is nonweightbearing on base of right foot. 2. Diabetes mellitus type 2, insulin using, chronic, present on admission. Stable. -Hemoglobin A1c 11.4% indicative of poor glycemic control with complication of peripheral neuropathy and higher risk of poor wound healing. -Continued home Lantus 10 units daily at bedtime. Held metformin. -Continued ACHS blood glucose checks and low-dose correctional scale insulin. -Continued carbohydrate consistent/heart healthy diet postoperatively. -Recommended close outpatient follow-up with PCP at [facility] for diabetic management and tight glycemic control. Recommended patient keep a blood glucose log with for measurements including 1 fasting and take this to all his doctor's appointments. -Consulted dietitian and we appreciate her time and recommendations. 3. Persistent atrial fibrillation, chronic, present on admission. Stable. -Patient denies complaints of chest pain or shortness of breath. Currently in atrial fibrillation. -Continued home carvedilol 12.5 mg daily and diltiazem 180 mg daily. Xarelto was held for surgical intervention then restarted at time of discharge. 4. Hypertension, chronic, present on admission. Stable. -Continued home carvedilol 12.5 mg daily, diltiazem 180 mg daily, and lisinopril 20 mg daily. 5. Hyperlipidemia, chronic, present on admission. Stable. -Continued home atorvastatin 40 mg daily at bedtime. Exam Vital Signs (past 8 hours): - 10/22/19 04:20 Temperature 97.5 F L Pulse Rate 74 Respiratory Rate 16 Blood Pressure 126/85 Pulse Oximetry 99 Oxygen Delivery Method Room Air Oxygen Flow Rate 0 Narrative Exam Narrative: General: Older male sitting in bed and in no acute distress, appears older than stated age, well-developed, well-nourished, appropriately interactive. HEENT: Normocephalic, atraumatic. External ears without defect. Pupils equal, round, and reactive to light. Anicteric sclerae, moist conjunctivae, and no lid lag. Oropharynx free of erythema and cobble stoning with moist mucosa. Neck: Supple with full range of motion. No lymphadenopathy or thyromegaly. Cardiovascular: Irregularly irregular without murmurs, rubs, or gallops appreciated Pulmonary: Clear to auscultation bilaterally without crackles, wheezes, or rhonchi. Normal respiratory effort with no use of accessory muscles. Abdomen: Soft, obese, non-tender, non-distended. No hepatosplenomegaly or masses appreciated. Extremities: No clubbing, cyanosis, or edema. Right lower extremity with dressing in place C/D/I and distal movement and pulses intact. Skin: Normal temperature, turgor, and texture; no rash, ulcers, or subcutaneous nodules appreciated. Neurological: Cranial nerves grossly intact. Psychiatric: Mildly anxious mood and normal affect. Alert and oriented to person, place, and time. Objective Labs Result Diagrams: 10/22/19 03:45 10/22/19 03:45 Labs: Laboratory Results - last 24 hr 10/22/19 10/22/19 10/22/19 03:45 03:45 03:45 WBC 12.8 H RBC 4.45 L Hgb 13.6 Hct 41.6 MCV 93.5 MCH 30.6 MCHC 32.7 RDW 14.3 Plt Count 230 Neut % (Auto) 78.8 H Lymph % (Auto) 11.[address] [place] % (Auto) 8.5 Eos % (Auto) 0.6 L Baso % (Auto) 0.9 Neut # (Auto) 11944 H Lymph # (Auto) 1400 [place] # (Auto) 1100 H Eos # (Auto) 100 Baso # (Auto) 100 Sodium 136 L Potassium 4.6 Chloride 104 Carbon Dioxide 25 BUN 24 H Creatinine 0.93 Estimated GFR > 60.0 BUN/Creatinine Ratio 25.8 H Glucose 208 H D Calcium 9.3 Magnesium 1.7 Total Bilirubin 0.8 AST 35 ALT 33 Alkaline Phosphatase 87 Total Protein 6.8 Albumin 3.6 Globulin 3.2 Albumin/Globulin Ratio 1.1 Procalcitonin < 0.05 Vancomycin Trough 10/22/19 03:45 WBC RBC Hgb Hct MCV MCH MCHC RDW Plt Count Neut % (Auto) Lymph % (Auto) [place] % (Auto) Eos % (Auto) Baso % (Auto) Neut # (Auto) Lymph # (Auto) [place] # (Auto) Eos # (Auto) Baso # (Auto) Sodium Potassium Chloride Carbon Dioxide BUN Creatinine Estimated GFR BUN/Creatinine Ratio Glucose Calcium Magnesium Total Bilirubin AST ALT Alkaline Phosphatase Total Protein Albumin Globulin Albumin/Globulin Ratio Procalcitonin Vancomycin Trough 14.2 Discharge Plan Discharge Plan Patient Disposition: Home Discharge comment: You are being discharged home. You had a diabetic foot ulcer of your right 3rd toe that infected the bone and required amputation. You have been provided a postop wedge shoe and Dr. Jj recommends no weight-bearing on base of right foot and dressing change at appointment at the beginning of next week. You have been prescribed Levaquin 750 mg daily for 5 additional days to complete antibiotic course. Please follow-up with Podiatry, Dr. Jj, next week as scheduled for postop visit. Please follow-up with your primary care provider at the [facility] regarding your hospitalization and diabetic management with tight blood glucose control. Please keep a blood glucose log wi th 1 fasting measurements (goal less than 120) and 3 measurements 2 hours after meals (goal less than 180) and take this to all your doctor's appointments. Discharge orders & Medications Prescriptions: New levofloxacin [Levaquin] 750 mg tablet 750 mg PO DAILY Qty: 5 RF: 0 Continued atorvastatin 40 mg Tablet 40 mg PO BEDTIME RF: 0 metformin 500 mg Tablet 500 mg PO BID RF: 0 carvedilol 12.5 mg Tablet 12.5 mg PO DAILY RF: 0 Lantus U-100 Insulin 100 unit/mL Solution 10 unit SUBCUT BEDTIME RF: 0 lisinopril 20 mg Tablet 20 mg PO DAILY RF: 0 diltiazem HCl 180 mg Capsule,Ext.Rel 24h Degradable 180 mg PO DAILY RF: 0 Xarelto 20 mg Tablet 20 mg PO QPM RF: 0 aspirin [Adult Low Dose Aspirin] 81 mg Tablet,Delayed Release (Dr/Ec) 81 mg PO DAILY RF: 0 Follow up/Referrals: Gaviota Jj DPM [Physician] - 10/26/19 3:00 pm (Follow up appointment with Dr Jj Saturday @3:00 in [place]. Address: [address] [place] [id number] Phone number: [phone]) Diet/Activity/Treatments Diet: Carb-consistent/Diabetic, Low-fat, Low-sodium and Low-cholesterol Activity: Activity as tolerated with forward wheeled walker and nonweightbearing on base of right foot Visit Report/Discharge Packet Instructions: DI for Toe Amputation, DI for Constipation, How to Prevent Falls Visit Report Forms: Patient Portal/API, Stroke Signs & Symptoms Discharge Data Primary Care Provider: Yanet Masterson
[2019-10-22] MEDS: carvediloL 12.5 MG TABLET PO (08:52)
[2019-10-22] MEDS: METFORMIN HCL 500 MG TABLET PO (08:52)
[2019-10-22] MEDS: ASPIRIN EC 81 MG TABLET PO (08:52)
[2019-10-22] MEDS: lisinopriL 20 MG TABLET PO (08:52)
[2019-10-22] MEDS: INSULIN ASPART 100 UNIT/ML INSULN PEN SUBCUT (08:52)
[2019-10-22] MEDS: SODIUM CHLORIDE 0.9% FLUSH 10 ML IV (08:53)
[2019-10-22] MEDS: dilTIAZem CD 180 MG CAP PO (08:54)
--- NOTE | 2019-10-22 09:20 | PT.IPTN ---
Current Diagnoses Cellulitis of right toe (10/20/19) Surgery Performed Operation Date: 10/21/19 10:15 Actual Procedures p 3rd Toe Amputation(Right) - Gaviota Jj DPM Physical Therapy Treatment Note M2 PT-IP Current Condition Start: 10/21/19 08:46 Freq: NEEDED Status: Active Protocol: Document 10/21/19 14:15 HH (Rec: 10/21/19 16:57 HH [email or web address]) Physical Therapy Current Condition Current Condition Evaluation Date 10/21/19 Treatment Diagnosis Amputation of R 3rd toe d/t diabetic ulcer, difficulty in walking Onset Date 10/21/19 Weight Bearing Status Weight Bearing Status Non-Weight Bearing Allowed Weight Bearing Amount (enter % Per surgical note, From now or #) (%) until that time he should be nonweightbearing to the foot. M3 PT-IP Subjective Start: 10/21/19 08:46 Freq: NEEDED Status: Active Protocol: Document 10/22/19 09:20 AB (Rec: 10/22/19 13:21 AB [email or web address]) Subjective Physical Therapy Visit Type Type Treatment Note Visit Start Time 09:20 Visit Stop Time 10:25 Total Visit Minutes 65 Number of RETAIL KEY HOLDER Visits 0 Physical Therapy Visit Comments Patient Comments pt agreeable to do PT M4 PT-IP Mobility and Gait Start: 10/21/19 08:46 Freq: NEEDED Status: Active Protocol: Document 10/22/19 09:20 AB (Rec: 10/22/19 13:21 AB [email or web address]) PT-Transfer Assessment Sit to and From Stand Sit to and from Stand Standby Assistance,Use of Upper Extremities Equipment Transfer Assistive Device Gait Belt,Front Wheeled Walker Orthotic/Prosthetic Devices or Brace: Yes Transfers Transfer Destination Bed,Chair Transfer Technique ambulated using FWW Transfer Ability Level of Assist Contact Guard Assistance,1 Person Assistance,Use of Upper Extremities Comments Mobility Comments Pt sitting on chair and agreeable to do PT. Post-op shoe with forefoot cut out ordered by the doctor and dispensed to pt. pt stated that he has used one before and was able to put shoe on. educated pt on weight bearing precaution. per doctor: NWB on RLE but ok for periodic flat touchdown on foot with post-op shoe. educated pt on NWB precautions and least weight possible on RLE with post-op shoe if pt has to put RLE down on floor. pt completed ambulation in room using FWW CGA. presents with increase unsteadiness midway with ambulation. educated pt on how to manage stairs. pt has 2 steps from the front door and just 1 step to enter from the garage. educated pt on safety and recommendation to enter through the garage instead of the front door. pt agreed. PT demonstrated stepping up one step using FWW for support . pt completed with CGA. pt completed x 2 sets. pt without any other concerns. pt presents with decrease activity tolerance affecting balance and safety with ambulation using FWW. educated pt on safety and recommending pt to use a w/c especially for long distance ambulation. pt agreed and stated that he will call [employer]. dispensed FWW for home use. obtained doctor's order and pt signed papers. Gait Assessment Gait Gait Assistance Required: Contact Guard Assist Distance (Feet) 20 Able to Maintain Weight Bearing Status Yes During Gait Assistive Devices Assistive Device Gait Belt,Front Wheeled Walker Orthotic/Prosthetic Devices or Brace: Yes Gait Deviations General Gait Pattern Antalgic,Decreased Stride Length,Decreased Feet Clearance,Step-to Gait Factors Limiting Gait Function Factors Limiting Gait Function Decreased Activity Tolerance, Decreased Strength,Poor Balance,Poor Safety Awareness Stair Climbing Assessment Evaluation Level of Assist On Stairs Contact Guard Assistance,1 Person Assistance Devices Stair Climbing Assistive Devices Front Wheel Walker Technique/Endurance Stair Climbing Direction Ascend and Descend Stair Climbing Technique Step to Step Number of Steps Climbed 1 Stair Climbing Set # Repetitions (reps) 2 Comments Stair Climbing Comments completed up/down step stool using FWW M5 PT-IP Objective Assessments Start: 10/21/19 08:46 Freq: NEEDED Status: Active Protocol: Document 10/21/19 14:15 (Rec: 10/21/19 16:57 [id number]) Orientation Orientation/Cognition Level of Alertness Alert Orientation Name,Age,Birthday,Month,Date, Year,Day of Week,Place, Situation Language Function Ability No Deficits Noted Safety Awareness Understands Safety Issues Memory Description No Deficits Noted Gross Range of Motion Upper Extremity ROM Assessment Within Functional Limits Lower Extremity ROM Assessment Right Impaired Impairments R foot with compression sock and concepcion wrap post op swelling at R calf noted. Strength Upper Extremity Strength Assessment Within Functional Limits Lower Extremity Strength Assessment Right Impaired Coordination Assessment Gross Coordination Gross Coordination WNL M6 PT-IP Treatment Start: 10/21/19 08:46 Freq: NEEDED Status: Active Protocol: Document 10/22/19 09:20 AB (Rec: 10/22/19 13:21 AB [email or web address]) Physical Therapy Treatment Education Education Provided Weight Bearing Status,Safety Equipment Issued Equipment Type and Company forefoot offloading post-op shoe and FWW dispensed to pt M7 PT-IP Assessment and Plan Start: 10/21/19 08:46 Freq: NEEDED Status: Active Protocol: Document 10/22/19 09:20 AB (Rec: 10/22/19 13:21 AB [email or web address]) PT Summary Assessment and Plan Potential Rehabilitation Potential Good Summary Impairments Pain,ROM,Strength,Balance, Coordination,Sensation,Bed Mobility,Transfers,Gait, Activity Tolerance Progress Towards Goals Slow Progress due to Activity Tolerance Assessment Summary pt requiring CGA with mobility . educated on safety and equipement recommendations. FWW dispensed to pt and recommending pt to obtain a w/ c for long distance mobility. pt understood and agreed. pt plans to go home and spouse to assist pt. Goals Bed Mobility Goal Standby Assistance Transfer Goal Standby Assistance,Front Wheeled Walker Gait Goal Standby Assistance,Front Wheel Walker Gait Distance 20 Other Goals complete 1 platform steps to enter house using FWW SBA Days to Meet Goals 5 Frequency of Treatment Frequency Of Treatment Twice a Day Treatment Plan Physical Therapy Treatment Plan Bed Mobility Training,Transfer Training,Gait Training, Therapeutic Exercise,Balance Retraining,Post Op Education, Neuromuscular Re-ed Recommendations To Nursing Amount of Assist Needed 1 Person Assist Discharge Recommendations PT Discharge Recommendations Home with Assistance,Home Health Transportation Needs at Discharge Private Vehicle
--- NOTE | 2019-10-22 09:28 | CM.DPC ---
DCP Cont: Patient has discharge orders today. He will follow up with Dr. Jj, food stylist, on Saturday. He will go home on oral antibiotics. Asked patient if he would be interested in any home health, such as nursing or P.T, and he declined. Stated, he has supportive at home that will assist him. P: Patient is to be discharged home today. Funmilayo Pendleton RN/Head Mixer
--- NOTE | 2019-10-22 09:52 | DIET.PN ---
Dietary Progress Note Assessment: 64y M admitted for DM cellulitis of middle R toe is 1d s/p amputation referred to nutrition for poorly controlled DM2. HT: 182.8cm WT: 115kg BMI: 34.4 Labs: A1c 11.4 H, admit BG 220 DM meds: metformin 500mg bid, Lantus 10U at night- Pt reports being compliant 6/7 days ED reports state pt was suprised by 220 BG at admit, however A1c 11.4 sign pt not regularly monitoring BGs, though states he does check BGs several times per day. Dx c DM2 in 1999 after experiencing eye drift. Pt works at [employer], 5am-1pm. Not often hungry before work, waits to eat lunch until after work. Pt sits in recliner after work to watch tv and remains there through evening, sleeps in recliner usually. Stops at [employer] daily for snacks: candy bar, doughnut, crackers. 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 Pt's also has DM2 Pt was resistant to DM education bedside, states don't bother, I will just have to figure some things out. Continued motivational interviewing c pt and spouse to reduce resistance to help c education. Pts says she attends meetings at [facility] for DM f/u, invited pt to join her. Encouraged pt to follow through, encouraged to enroll in DSME at as insurance will cover and classes are 2pm which is after his work day. Pt unlikely to make significant changes in diet/lifestyle to manage DM at this time, medication adjustments may have more profound impact. Nutrition Diagnosis: R toe cellulitis resulting in amputation r/t poorly managed DM2 aeb A1c 11.4, pt not following DM reccs for diet/exercise including high intake ultraprocessed foods, pt had similar occurance on L side toe last year attending wound care to manage. Interventions: 1. Used motivational interviewing to assist pt in finding importance for better control of DM. Pt had good luck switching from soda to diet soda in 1999 upon DM dx, used this as leverage that dietary improvements are possible. 2. Discussed role of BG >200 in current cellulitis/amputation. 3. 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 Diet Order: CCD/HH Monitoring/Evaluations: f/u DM ed
--- NOTE | 2019-10-22 15:39 | PC.NURSE ---
Discharge: Feels ready to d/c home. Has no pain. Tolerates diet w/out problems, vds w/out diff. Follows his precautions -ttwb, no ice, ect. Dressing is dry, he is not to get it wet. His follow up appt was made. Reviewed d/c packet, rx was e-sent, He was cleared by PT. Pt d/c home via auto w/spouse.
== END 2019-10-22 15:30 | disposition home or self-care (01) | DRG 617 ==
LOC: ED 17:21 → AC 17:23
PROVIDERS: Internal Medicine; Nurse Practitioner Adult Health; Podiatrist; Admitting Provider Internal Medicine; Emergency Provider Nurse Practitioner; PCP Internal Medicine; Referring Provider Nurse Practitioner; Visit Provider Internal Medicine
PROC: 0Y6T0Z0 Detachment at Right 3rd Toe, Complete, Open Approach (ICD-10-PCS; principal; 2019-10-21 10:15)
DX: E11.69 Type 2 diabetes mellitus with other specified complication (principal); M86.8X7 Other osteomyelitis, ankle and foot; L97.516 Non-pressure chronic ulcer of other part of right foot with bone involvement without evidence of necrosis; I48.19 Other persistent atrial fibrillation; L03.031 Cellulitis of right toe; E11.621 Type 2 diabetes mellitus with foot ulcer; E11.40 Type 2 diabetes mellitus with diabetic neuropathy, unspecified; L27.0 Generalized skin eruption due to drugs and medicaments taken internally; T36.0X5A Adverse effect of penicillins, initial encounter; I10 Essential (primary) hypertension; E78.5 Hyperlipidemia, unspecified; I25.10 Atherosclerotic heart disease of native coronary artery without angina pectoris; E66.9 Obesity, unspecified; M20.41 Other hammer toe(s) (acquired), right foot; Y92.230 Patient room in hospital as the place of occurrence of the external cause; Z79.01 Long term (current) use of anticoagulants; Z79.4 Long term (current) use of insulin; Z11.59 Encounter for screening for other viral diseases; Z68.34 Body mass index [BMI] 34.0-34.9, adult
CPT/HCPCS: 36415; 73660; 80048; 80053; 80202; 82962; 83036; 83605; 83735; 84145; 85025; 87040; 87070; 87075; 87077; 87147; 87186; 87205; 87635; 93005; 96365; 97116; 97161; 97530; 99284; J1200; J1956; J2250; J2543; J2930; J3010

== ENCOUNTER 2020-01-09 19:13 | Emergency (ER) | payer MEDICARE, OTHER, SELFPAY ==
[2019-10-20 18:38] VITALS: BMI 33.9
[2020-01-09 19:18] VITALS: BP 155/73; PULSE 78; RESP 16; TEMP 36.6; O2SAT 99
--- NOTE | 2020-01-09 19:48 | PC.NURSE ---
Pt with slight bruising to L side of anterior tongue, no pain reported, no swallowing issues. Pt discharged without issue.
--- NOTE | 2020-01-09 20:46 | ED.WOUNDLAC ---
HPI - Wound/Laceration <TONYA Harrison - Last Filed: 01/09/20 20:55> General Chief Complaint: Wound/Laceration Stated Complaint: bit tongue other day, purple Time Seen by Provider: 01/09/20 19:24 Source: patient Mode of arrival: Ambulatory Limitations: no limitations History of Present Illness HPI narrative: This is a 64-year-old male, nonsmoker, who has history of AFib and currently takes baby aspirin and Xarelto presents to ED with chief complain of left-sided tongue bruise after he accidentally bite his tongue a couple of days ago. He denies swelling or significant pain on affected side but when he decided to check out his tongue and inspected with a mirror stating it freaked me out due to its color/appearance. Patient denies bleeding from the site, difficulty swallowing, dyspnea, or fever. Related Data Home Medications Medication Instructions Recorded Confirmed Lantus U-100 Insulin 10 unit SUBCUT BEDTIME 10/20/19 10/20/19 Xarelto 20 mg PO QPM 10/20/19 10/20/19 aspirin [Adult Low Dose Aspirin] 81 mg PO DAILY 10/20/19 10/20/19 atorvastatin 40 mg PO BEDTIME 10/20/19 10/20/19 carvedilol 12.5 mg PO DAILY 10/20/19 10/20/19 diltiazem HCl 180 mg PO DAILY 10/20/19 10/20/19 lisinopril 20 mg PO DAILY 10/20/19 10/20/19 metformin 500 mg PO BID 10/20/19 10/20/19 Previous Rx's Medication Instructions Recorded levofloxacin [Levaquin] 750 mg PO DAILY #5 tab 10/22/19 Allergies Allergy/AdvReac Type Severity Reaction Status Date / Time piperacillin [From Zosyn] Allergy Severe Uticaria Verified 10/20/19 22:50 tazobactam [From Zosyn] Allergy Severe Uticaria Verified 10/20/19 22:50 Review of Systems <TONYA Harrison - Last Filed: 01/09/20 20:55> Review of Systems Narrative: General: Denies fever, chills, fatigue, malaise, sweats. HEENT: See HPI Respiratory: Denies dyspnea, cough, wheezing, hemoptysis, sputum. Cardiovascular: Denies chest pain, palpitations, orthopnea, edema. Gastrointestinal: Denies nausea, vomiting, abdominal pain, diarrhea, constipation, melena. Musculoskeletal: Denies weakness, joint pain or bony pain. Skin: See HPI Neurologic: Denies weakness, headache, numbness, change in speech, confusion, seizures, incoordination. Patient History <TONYA Harrison - Last Filed: 01/09/20 20:55> Medical History (Updated 01/09/20 @ 19:45 by TONYA Harrison) Afib (Acute) Diabetes (Acute) Hyperlipidemia (Acute) Hypertension (Acute) Neuropathy of both feet (Acute) Surgical History History of hernia repair (Acute) History of neck surgery (Acute) Family History Father Smoker Diabetes mellitus Heart attack Mother No significant medical problems Social History household members: spouse occupational status: employed Smoking Status: Never smoker alcohol intake: never Smoking Status: Never smoker alcohol intake frequency: other Substance Use Type: does not use Exam <TONYA Harrison - Last Filed: 01/09/20 20:55> Narrative Exam Narrative: General appearance: well developed, well nourished, in no acute distress. Head: normocephalic, atraumatic, no scalp lesions, non-tender. ENT: Hearing grossly intact. Nose without bleeding, purulent discharge, septal hematoma or deviation. Turbinate without erythema or swelling. Facial sinuses nontender to palpate. Mucous membrane moist, underside left tongue with ecchymosis without obvious swelling. No laceration, bleeding or drainage appreciated. Throat without erythema, tonsillar hypertrophy or exudate. Uvula in midline, airway patent. Neck/Thyroid: neck supple, full range of motion, no visible masses or meningeal signs. No JVD, non-tender without lymphadenopathy. Skin: no suspicious rashes, lesions over visible areas. Warm and dry and appropriate color for ethnicity. Heart: no clubbing, no cyanosis, no edema. S1 and S2 normal. RRR w/o murmurs, clicks, or bruits. Lungs: Breathing even and unlabored. No stridor. No accessory muscles used. Able to speak in full sentences. Chest: normal shape and expansion. Abdomen: non-obese, non-distended. Neurologic: alert and oriented. 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 Psych: good eye contact, normal affect. Initial Vital Signs Initial Vital Signs: Vital Signs Temperature 97.8 F 01/09/20 19:18 Pulse Rate 78 01/09/20 19:18 Respiratory Rate 16 01/09/20 19:18 Blood Pressure 155/73 H 01/09/20 19:18 Pulse Oximetry 99 01/09/20 19:18 <Quita Bedoya MD - Last Filed: 01/09/20 21:45> Initial Vital Signs Initial Vital Signs: Vital Signs Temperature 97.8 F 01/09/20 19:18 Pulse Rate 78 01/09/20 19:18 Respiratory Rate 16 01/09/20 19:18 Blood Pressure 155/73 H 01/09/20 19:18 Pulse Oximetry 99 01/09/20 19:18 Scores <TONYA Harrison - Last Filed: 01/09/20 20:55> GCS Eun coma scale eye opening: Spontaneous [place] coma scale verbal response: Orientated Eun coma scale motor response: Obey commands Eun coma scale total score: 15 Course <TONYA Harrison - Last Filed: 01/09/20 20:55> Vital Signs Vital signs: Vital Signs - 8 hr 01/09/20 19:18 Temperature 97.8 F Pulse Rate 78 Respiratory Rate 16 Blood Pressure 155/73 H Pulse Oximetry 99 <Quita Bedoya MD - Last Filed: 01/09/20 21:45> Vital Signs Vital signs: Vital Signs - 8 hr 01/09/20 19:18 Temperature 97.8 F Pulse Rate 78 Respiratory Rate 16 Blood Pressure 155/73 H Pulse Oximetry 99 [facility] - Wound/Laceration <TONYA Harrison - Last Filed: 01/09/20 20:55> Differential Diagnosis Differential diagnosis: Likely other (Hematoma, contusion) Medical Records Attestation: I reviewed the patient's medical records. [facility] Narrative Medical decision making narrative: This is a 64-year-old male takes baby aspirin and Xarelto for history of AFib presents to ED underside left tongue bruise after he accidentally bit his tongue 2 days ago. There is no laceration, avulsion, bleeding, tongue swelling, or drainage appreciated. Patient reports no difficulty with swallowing or breathing. Reports no significant pain. It is likely patient had contusion/hematoma while on Xarelto. Advised to use cool fluids, ice chips as needed for swelling or pain and to monitor. Denies other bleeding or increased bruising at this time. Return precautions were discussed with patient and he verbalized understanding in with treatment plan. Discharge Plan Departure Patient Disposition: Home Clinical Impression: Hematoma, Anticoagulant effect Discharge Date/Time: 01/09/20 19:49 Instructions: DI for Hematoma (Bruise) Activity Restrictions/Additional Instructions: You have been diagnosed with [left-sided tongue hematoma from accidental bite with currently using Xarelto anticoagulant.]. What to do: *Take your medications as directed. You can use cool drinks, ice chips if swelling occurs. *Follow up with your primary care provider in 2-3 days, call for an appointment. Let them know you were seen in the ED and that we asked you to be seen in follow up. *Return to ED if you have any new, worsening, or concerning symptoms, such as [worsening symptoms, prolonged bleeding, unable to tolerate fluids/swallowing due to swelling, fever, or any acute concerns]. Prescriptions: No Action atorvastatin 40 mg Tablet 40 mg PO BEDTIME RF: 0 metformin 500 mg Tablet 500 mg PO BID RF: 0 carvedilol 12.5 mg Tablet 12.5 mg PO DAILY RF: 0 Lantus U-100 Insulin 100 unit/mL Solution 10 unit SUBCUT BEDTIME RF: 0 lisinopril 20 mg Tablet 20 mg PO DAILY RF: 0 diltiazem HCl 180 mg Capsule,Ext.Rel 24h Degradable 180 mg PO DAILY RF: 0 Xarelto 20 mg Tablet 20 mg PO QPM RF: 0 aspirin [Adult Low Dose Aspirin] 81 mg Tablet,Delayed Release (Dr/Ec) 81 mg PO DAILY RF: 0 levofloxacin [Levaquin] 750 mg tablet 750 mg PO DAILY Qty: 5 RF: 0 Referrals: Teresa Waters [Non-Staff] - <Quita Bedoya MD - Last Filed: 01/09/20 21:45> Cosign ED Attending [place] Attestation: I was immediately available in the department for consultation throughout this patient's visit. I agree with documentation as above. Quita Bedoya MD
== END 2020-01-09 19:49 | disposition home or self-care (01) ==
PROVIDERS: Emergency Provider Nurse Practitioner Family
DX: S00.532A Contusion of oral cavity, initial encounter (principal)
CPT/HCPCS: 99281

== ENCOUNTER → 2020-02-10 09:20 | Outpatient (CLI) | payer MEDICARE, OTHER, SELFPAY ==
[2019-10-20 18:38] VITALS: BMI 33.9
== END ==
PROVIDERS: PCP Podiatrist; Referring Provider Podiatrist; Visit Provider Family Medicine
DX: E11.42 Type 2 diabetes mellitus with diabetic polyneuropathy (principal); L97.511 Non-pressure chronic ulcer of other part of right foot limited to breakdown of skin; Z89.421 Acquired absence of other right toe(s)
CPT/HCPCS: 11042; 99213; 99214

== ENCOUNTER → 2020-02-15 08:30 | Outpatient (CLI) | payer MEDICARE, OTHER, SELFPAY ==
[2019-10-20 18:38] VITALS: BMI 33.9
--- NOTE | 2020-02-15 | DI.RAD.S_ITS ---
PROCEDURE: XR TOE RT MIN 2V INDICATIONS: RIGHT TOE PAIN TECHNIQUE: 3 views of the right toe(s) acquired. COMPARISON: [facility], CR, XR TOE RT MIN 2V, 10/20/2019, 14:08. FINDINGS: Bones: Patient is status post amputation of the 3rd digit. Subtle cortical thinning is noted at the distal phalanx of the 2nd digit which is new when compared with the study dated October 20, 2019. Soft tissues: No suspicious soft tissue densities. IMPRESSION: Subtle cortical thinning of the distal phalanx of the 2nd digit suspicious for osteomyelitis. If further characterization is warranted, nuclear medicine regional bone scan or MRI could be used. Dictated by: Colleen Mcnamara M.D. on 02/15/2020 at 9:34 Approved by: Colleen Mcnamara M.D. on 02/15/2020 at 9:58
== END ==
PROVIDERS: PCP Podiatrist; Referring Provider Family Medicine; Visit Provider Family Medicine
DX: L97.511 Non-pressure chronic ulcer of other part of right foot limited to breakdown of skin (principal); M79.674 Pain in right toe(s)
CPT/HCPCS: 73660

== ENCOUNTER → 2020-02-22 09:18 | Outpatient (CLI) | payer MEDICARE, OTHER, SELFPAY ==
[2019-10-20 18:38] VITALS: BMI 33.9
== END ==
PROVIDERS: PCP Podiatrist; Referring Provider Podiatrist; Visit Provider Family Medicine
DX: E11.621 Type 2 diabetes mellitus with foot ulcer (principal); L97.511 Non-pressure chronic ulcer of other part of right foot limited to breakdown of skin
CPT/HCPCS: 99213

== ENCOUNTER → 2020-02-24 12:22 | Outpatient (CLI) | payer MEDICARE, OTHER, SELFPAY ==
[2019-10-20 18:38] VITALS: BMI 33.9
[2020-02-24 13:16] LABS: Add Manual Diff / Slide Review NO; Basophils Absolute Auto 0 /uL (0-100); Basophils Percent Auto 0.5 % (0-2); Eosinophils Absolute Auto 200 /uL (0-450); Eosinophils Percent Auto 1.7 % (2-4); Hemoglobin 13.3 g/dL (13.5-17.5); Lymphocytes Absolute Auto 1700 /uL (1100-4500); Lymphocytes Percent Auto 18.2 % (25-40); Mean Corpuscular HGB Conc 33.2 % (30-36); Mean Corpuscular Hemoglobin 31.2 PG (26-34); Monocytes Absolute Auto 500 /uL (0-900); Neutrophils Absolute Auto 6700 /uL (1500-7000); Neutrophils Percent Auto 73.6 % (50-75); Platelet Count 217 X10^3/uL (150-400); Red Blood Cell Count 4.26 X10^6/uL (4.5-5.9); Red Cell Distribution Width 14.5 % (11.6-14.8); White Blood Cell Count 9.1 X10^3/uL (4.5-11.0)
[2020-02-24 13:32] LABS: Erythrocyte Sedimentation Rate 23 MM/HR (0-15)
[2020-02-24 13:49] LABS: Alanine Aminotransferase 24 IU/L (<50); Albumin 4.1 g/dL (3.5-5.0); Albumin Globulin Ratio 1.3 (1.0-2.8); Alkaline Phosphatase 88 U/L (38-126); Aspartate Aminotransferase 30 IU/L (17-59); BUN Creatinine Ratio 22.4 (6-22); Bilirubin Total 0.5 mg/dL (0.2-1.3); Blood Urea Nitrogen 22 mg/dL (9-20); C-Reactive Protein Quant 0.6 mg/dL (<1.0); Calcium 9.2 mg/dL (8.4-10.2); Carbon Dioxide 29 mmol/L (22-32); Chloride 104 mmol/L (98-107); Estimated Glomerular Filt Rate > 60.0 mL/min (>60); Globulin 3.1 g/dL (1.7-4.1); Glucose 89 mg/dL (80-110); HEMOLYSIS < 15 (0-50); Potassium 4.7 mmol/L (3.4-5.1); Sodium 138 mmol/L (137-145); Total Protein 7.2 g/dL (6.3-8.2)
== END ==
PROVIDERS: PCP Podiatrist; Referring Provider Family Medicine; Visit Provider Family Medicine
DX: M86.171 Other acute osteomyelitis, right ankle and foot (principal)
CPT/HCPCS: 36415; 80053; 85025; 85651; 86140

== ENCOUNTER → 2020-02-29 10:45 | Outpatient (CLI) | payer MEDICARE, OTHER, SELFPAY ==
[2019-10-20 18:38] VITALS: BMI 33.9
== END ==
PROVIDERS: PCP Podiatrist; Referring Provider Podiatrist; Visit Provider Family Medicine
DX: E11.42 Type 2 diabetes mellitus with diabetic polyneuropathy (principal); L97.511 Non-pressure chronic ulcer of other part of right foot limited to breakdown of skin; Z89.421 Acquired absence of other right toe(s); M86.671 Other chronic osteomyelitis, right ankle and foot
CPT/HCPCS: 11042; 99214

== ENCOUNTER → 2020-03-07 13:41 | Outpatient (CLI) | payer MEDICARE, OTHER, SELFPAY ==
[2019-10-20 18:38] VITALS: BMI 33.9
== END ==
PROVIDERS: PCP Podiatrist; Referring Provider Podiatrist; Visit Provider Family Medicine
DX: L97.511 Non-pressure chronic ulcer of other part of right foot limited to breakdown of skin (principal); R60.0 Localized edema
CPT/HCPCS: 99213

== ENCOUNTER → 2020-03-14 09:17 | Outpatient (CLI) | payer MEDICARE, OTHER, SELFPAY ==
[2019-10-20 18:38] VITALS: BMI 33.9
== END ==
PROVIDERS: PCP Podiatrist; Referring Provider Podiatrist; Visit Provider Family Medicine
DX: E11.621 Type 2 diabetes mellitus with foot ulcer (principal); E11.42 Type 2 diabetes mellitus with diabetic polyneuropathy; L97.511 Non-pressure chronic ulcer of other part of right foot limited to breakdown of skin; L97.521 Non-pressure chronic ulcer of other part of left foot limited to breakdown of skin; M86.671 Other chronic osteomyelitis, right ankle and foot; L08.9 Local infection of the skin and subcutaneous tissue, unspecified; M19.072 Primary osteoarthritis, left ankle and foot; M77.32 Calcaneal spur, left foot
CPT/HCPCS: 11042; 73630; 87070; 87075; 87077; 87147; 87186; 87205; 99213

== ENCOUNTER → 2020-03-14 10:05 | Outpatient (CLI) | payer MEDICARE, OTHER, SELFPAY ==
[2019-10-20 18:38] VITALS: BMI 33.9
--- NOTE | 2020-03-14 | DI.RAD.S_ITS ---
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 COMPARISON: [facility], CR, XR FOOT LT MIN 3V, 06/21/2018, 11:45. FINDINGS: Bones: No fracture. Moderate 1st MTP joint degeneration. Prominent plantar calcaneal spurring and dystrophic calcification in the distal Achilles insertion region. Chronic unfused accessory naviculars Soft tissues: Scattered vascular calcifications. IMPRESSION: Degenerative changes as above. No focal osseous destruction to suggest advanced osteomyelitis. If there is persistent clinical concern, continued short interval radiographic followup or contrast enhanced MRI could be performed to assess for early infection. Dictated by: Rodrigo Cisneros M.D. on 03/14/2020 at 11:06 Approved by: Rodrigo Cisneros M.D. on 03/14/2020 at 11:10
== END ==
PROVIDERS: PCP Podiatrist; Referring Provider Family Medicine; Visit Provider Family Medicine
DX: L97.521 Non-pressure chronic ulcer of other part of left foot limited to breakdown of skin (principal); M19.072 Primary osteoarthritis, left ankle and foot; M77.32 Calcaneal spur, left foot
CPT/HCPCS: 73630

== ENCOUNTER → 2020-03-29 08:47 | Outpatient (CLI) | payer MEDICARE, OTHER, SELFPAY ==
[2019-10-20 18:38] VITALS: BMI 33.9
== END ==
PROVIDERS: PCP Podiatrist; Referring Provider Podiatrist; Visit Provider Family Medicine
DX: E11.621 Type 2 diabetes mellitus with foot ulcer (principal); L97.511 Non-pressure chronic ulcer of other part of right foot limited to breakdown of skin; L97.526 Non-pressure chronic ulcer of other part of left foot with bone involvement without evidence of necrosis; M86.172 Other acute osteomyelitis, left ankle and foot; R60.0 Localized edema; E11.42 Type 2 diabetes mellitus with diabetic polyneuropathy; Z79.2 Long term (current) use of antibiotics
CPT/HCPCS: 11042; 99214

== ENCOUNTER → 2020-04-06 14:35 | Outpatient (CLI) | payer MEDICARE, OTHER, SELFPAY ==
[2019-10-20 18:38] VITALS: BMI 33.9
== END ==
PROVIDERS: PCP Podiatrist; Referring Provider Podiatrist; Visit Provider Family Medicine
DX: E11.621 Type 2 diabetes mellitus with foot ulcer (principal); L97.511 Non-pressure chronic ulcer of other part of right foot limited to breakdown of skin; L97.526 Non-pressure chronic ulcer of other part of left foot with bone involvement without evidence of necrosis; E11.42 Type 2 diabetes mellitus with diabetic polyneuropathy; M86.172 Other acute osteomyelitis, left ankle and foot; Z79.2 Long term (current) use of antibiotics; R60.0 Localized edema
CPT/HCPCS: 11042

== ENCOUNTER → 2020-04-13 15:01 | Outpatient (CLI) | payer MEDICARE, OTHER, SELFPAY ==
[2019-10-20 18:38] VITALS: BMI 33.9
== END ==
PROVIDERS: PCP Internal Medicine; Referring Provider Podiatrist; Visit Provider Family Medicine
DX: E11.621 Type 2 diabetes mellitus with foot ulcer (principal); L97.511 Non-pressure chronic ulcer of other part of right foot limited to breakdown of skin; L97.526 Non-pressure chronic ulcer of other part of left foot with bone involvement without evidence of necrosis; M86.172 Other acute osteomyelitis, left ankle and foot; E11.42 Type 2 diabetes mellitus with diabetic polyneuropathy; R60.0 Localized edema; Z79.2 Long term (current) use of antibiotics; Z89.421 Acquired absence of other right toe(s)
CPT/HCPCS: 11042; 15275; Q4110

== ENCOUNTER → 2020-04-21 13:06 | Outpatient (CLI) | payer MEDICARE, OTHER, SELFPAY ==
[2019-10-20 18:38] VITALS: BMI 33.9
== END ==
PROVIDERS: PCP Internal Medicine; Referring Provider Internal Medicine; Visit Provider Family Medicine
DX: E11.621 Type 2 diabetes mellitus with foot ulcer (principal); L97.516 Non-pressure chronic ulcer of other part of right foot with bone involvement without evidence of necrosis; S91.105A Unspecified open wound of left lesser toe(s) without damage to nail, initial encounter; E11.42 Type 2 diabetes mellitus with diabetic polyneuropathy; Z89.421 Acquired absence of other right toe(s); M86.172 Other acute osteomyelitis, left ankle and foot; E11.628 Type 2 diabetes mellitus with other skin complications; Z79.2 Long term (current) use of antibiotics
CPT/HCPCS: 11042; 99214

== ENCOUNTER → 2020-04-28 14:58 | Outpatient (CLI) | payer MEDICARE, OTHER, SELFPAY ==
[2019-10-20 18:38] VITALS: BMI 33.9
== END ==
PROVIDERS: PCP Internal Medicine; Referring Provider Internal Medicine; Visit Provider Family Medicine
DX: E11.621 Type 2 diabetes mellitus with foot ulcer (principal); L97.516 Non-pressure chronic ulcer of other part of right foot with bone involvement without evidence of necrosis; S91.105A Unspecified open wound of left lesser toe(s) without damage to nail, initial encounter; E11.42 Type 2 diabetes mellitus with diabetic polyneuropathy; M86.172 Other acute osteomyelitis, left ankle and foot; E11.628 Type 2 diabetes mellitus with other skin complications; Z89.421 Acquired absence of other right toe(s); Z79.2 Long term (current) use of antibiotics
CPT/HCPCS: 11042; 15275; 99212; Q4105

== ENCOUNTER → 2020-05-03 15:01 | Outpatient (CLI) | payer MEDICARE, OTHER, SELFPAY ==
[2019-10-20 18:38] VITALS: BMI 33.9
== END ==
PROVIDERS: PCP Internal Medicine; Referring Provider Internal Medicine; Visit Provider Family Medicine
DX: E11.621 Type 2 diabetes mellitus with foot ulcer (principal); L97.516 Non-pressure chronic ulcer of other part of right foot with bone involvement without evidence of necrosis; S91.105A Unspecified open wound of left lesser toe(s) without damage to nail, initial encounter; M86.172 Other acute osteomyelitis, left ankle and foot; E11.628 Type 2 diabetes mellitus with other skin complications; E11.42 Type 2 diabetes mellitus with diabetic polyneuropathy; Z89.421 Acquired absence of other right toe(s)
CPT/HCPCS: 11042

== ENCOUNTER → 2020-05-12 14:25 | Outpatient (CLI) | payer MEDICARE, OTHER, SELFPAY ==
[2019-10-20 18:38] VITALS: BMI 33.9
== END ==
PROVIDERS: PCP Internal Medicine; Referring Provider Internal Medicine; Visit Provider Family Medicine
DX: E11.621 Type 2 diabetes mellitus with foot ulcer (principal); L97.516 Non-pressure chronic ulcer of other part of right foot with bone involvement without evidence of necrosis; S91.105A Unspecified open wound of left lesser toe(s) without damage to nail, initial encounter; M86.172 Other acute osteomyelitis, left ankle and foot; E11.628 Type 2 diabetes mellitus with other skin complications; E11.42 Type 2 diabetes mellitus with diabetic polyneuropathy; Z89.421 Acquired absence of other right toe(s); Z79.2 Long term (current) use of antibiotics
CPT/HCPCS: 11042; 99213

== ENCOUNTER → 2020-05-12 15:21 | Outpatient (CLI) | payer MEDICARE, OTHER, SELFPAY ==
[2019-10-20 18:38] VITALS: BMI 33.9
[2020-05-12 16:07] LABS: Add Manual Diff / Slide Review NO; Basophils Absolute Auto 100 /uL (0-100); Basophils Percent Auto 1.5 % (0-2); Eosinophils Absolute Auto 400 /uL (0-450); Eosinophils Percent Auto 4.5 % (2-4); Hematocrit 41.7 % (41-53); Hemoglobin 13.7 g/dL (13.5-17.5); Lymphocytes Absolute Auto 1500 /uL (1100-4500); Lymphocytes Percent Auto 18.1 % (25-40); Mean Corpuscular HGB Conc 32.9 % (30-36); Mean Corpuscular Hemoglobin 30.3 PG (26-34); Mean Corpuscular Volume 92.4 fL (80-100); Monocytes Absolute Auto 700 /uL (0-900); Monocytes Percent Auto 9.1 % (3-14); Neutrophils Absolute Auto 5300 /uL (1500-7000); Neutrophils Percent Auto 66.8 % (50-75); Platelet Count 215 X10^3/uL (150-400); Red Blood Cell Count 4.51 X10^6/uL (4.5-5.9); Red Cell Distribution Width 14.6 % (11.6-14.8)
[2020-05-12 16:16] LABS: Hemoglobin A1C% w Est Avg Glu 6.8 % (4.0-6.0)
[2020-05-12 16:36] LABS: Erythrocyte Sedimentation Rate 25 MM/HR (0-15)
[2020-05-12 19:53] LABS: Alanine Aminotransferase 20 IU/L (<50); Albumin 4.4 g/dL (3.5-5.0); Albumin Globulin Ratio 1.2 (1.0-2.8); Alkaline Phosphatase 103 U/L (38-126); Aspartate Aminotransferase 29 IU/L (17-59); BUN Creatinine Ratio 21.6 (6-22); Bilirubin Total 0.4 mg/dL (0.2-1.3); Blood Urea Nitrogen 24 mg/dL (9-20); C-Reactive Protein Quant 0.8 mg/dL (<1.0); Calcium 9.7 mg/dL (8.4-10.2); Carbon Dioxide 28 mmol/L (22-32); Chloride 104 mmol/L (98-107); Estimated Glomerular Filt Rate > 60.0 mL/min (>60); Globulin 3.6 g/dL (1.7-4.1); Glucose 120 mg/dL (80-110); HEMOLYSIS < 15 (0-50); Potassium 4.7 mmol/L (3.4-5.1); Sodium 140 mmol/L (137-145)
== END ==
PROVIDERS: PCP Internal Medicine; Referring Provider Family Medicine; Visit Provider Family Medicine
DX: M86.172 Other acute osteomyelitis, left ankle and foot (principal)
CPT/HCPCS: 36415; 80053; 83036; 85025; 85651; 86140

== ENCOUNTER → 2020-05-18 15:25 | Outpatient (CLI) | payer MEDICARE, OTHER, SELFPAY ==
[2019-10-20 18:38] VITALS: BMI 33.9
== END ==
PROVIDERS: PCP Internal Medicine; Referring Provider Internal Medicine; Visit Provider Family Medicine
DX: E11.628 Type 2 diabetes mellitus with other skin complications (principal); L97.516 Non-pressure chronic ulcer of other part of right foot with bone involvement without evidence of necrosis; S91.105D Unspecified open wound of left lesser toe(s) without damage to nail, subsequent encounter; M86.172 Other acute osteomyelitis, left ankle and foot; E11.40 Type 2 diabetes mellitus with diabetic neuropathy, unspecified; Z89.421 Acquired absence of other right toe(s); Z79.2 Long term (current) use of antibiotics
CPT/HCPCS: 11042; 99213

== ENCOUNTER → 2020-05-24 15:18 | Outpatient (CLI) | payer MEDICARE, OTHER, SELFPAY ==
[2019-10-20 18:38] VITALS: BMI 33.9
== END ==
PROVIDERS: PCP Internal Medicine; Referring Provider Internal Medicine; Visit Provider Family Medicine
DX: E11.621 Type 2 diabetes mellitus with foot ulcer (principal); L97.511 Non-pressure chronic ulcer of other part of right foot limited to breakdown of skin; E11.42 Type 2 diabetes mellitus with diabetic polyneuropathy; R60.0 Localized edema; Z89.421 Acquired absence of other right toe(s); M86.172 Other acute osteomyelitis, left ankle and foot; Z79.2 Long term (current) use of antibiotics
CPT/HCPCS: 15275; Q4110

== ENCOUNTER → 2020-05-31 14:10 | Outpatient (CLI) | payer MEDICARE, OTHER, SELFPAY ==
[2019-10-20 18:38] VITALS: BMI 33.9
== END ==
PROVIDERS: PCP Internal Medicine; Referring Provider Internal Medicine; Visit Provider Family Medicine
DX: E11.621 Type 2 diabetes mellitus with foot ulcer (principal); L97.511 Non-pressure chronic ulcer of other part of right foot limited to breakdown of skin; M86.172 Other acute osteomyelitis, left ankle and foot; E11.40 Type 2 diabetes mellitus with diabetic neuropathy, unspecified; Z89.421 Acquired absence of other right toe(s); Z79.2 Long term (current) use of antibiotics
CPT/HCPCS: 99213

== ENCOUNTER → 2020-06-09 15:46 | Outpatient (CLI) | payer MEDICARE, OTHER, SELFPAY ==
[2019-10-20 18:38] VITALS: BMI 33.9
== END ==
PROVIDERS: PCP Internal Medicine; Referring Provider Internal Medicine; Visit Provider Family Medicine
DX: E11.621 Type 2 diabetes mellitus with foot ulcer (principal); L97.511 Non-pressure chronic ulcer of other part of right foot limited to breakdown of skin; M86.172 Other acute osteomyelitis, left ankle and foot; E11.42 Type 2 diabetes mellitus with diabetic polyneuropathy; Z89.421 Acquired absence of other right toe(s); Z79.2 Long term (current) use of antibiotics
CPT/HCPCS: 11042

== ENCOUNTER → 2020-06-14 15:12 | Outpatient (CLI) | payer MEDICARE, OTHER, SELFPAY ==
[2019-10-20 18:38] VITALS: BMI 33.9
== END ==
PROVIDERS: PCP Internal Medicine; Referring Provider Internal Medicine; Visit Provider Family Medicine
DX: E11.621 Type 2 diabetes mellitus with foot ulcer (principal); L97.511 Non-pressure chronic ulcer of other part of right foot limited to breakdown of skin; E11.42 Type 2 diabetes mellitus with diabetic polyneuropathy; M86.172 Other acute osteomyelitis, left ankle and foot; Z89.421 Acquired absence of other right toe(s); Z79.2 Long term (current) use of antibiotics
CPT/HCPCS: 15275; Q4110

== ENCOUNTER → 2020-06-21 14:42 | Outpatient (CLI) | payer MEDICARE, OTHER, SELFPAY ==
[2019-10-20 18:38] VITALS: BMI 33.9
== END ==
PROVIDERS: PCP Internal Medicine; Referring Provider Internal Medicine; Visit Provider Family Medicine
DX: E11.621 Type 2 diabetes mellitus with foot ulcer (principal); L97.511 Non-pressure chronic ulcer of other part of right foot limited to breakdown of skin; E11.42 Type 2 diabetes mellitus with diabetic polyneuropathy; M86.172 Other acute osteomyelitis, left ankle and foot; Z89.421 Acquired absence of other right toe(s); Z79.2 Long term (current) use of antibiotics
CPT/HCPCS: 97597

== ENCOUNTER → 2020-06-30 14:57 | Outpatient (CLI) | payer MEDICARE, OTHER, SELFPAY ==
[2019-10-20 18:38] VITALS: BMI 33.9
== END ==
PROVIDERS: PCP Internal Medicine; Referring Provider Internal Medicine; Visit Provider Family Medicine
DX: E11.621 Type 2 diabetes mellitus with foot ulcer (principal); L97.511 Non-pressure chronic ulcer of other part of right foot limited to breakdown of skin; E11.42 Type 2 diabetes mellitus with diabetic polyneuropathy; M86.172 Other acute osteomyelitis, left ankle and foot; L08.9 Local infection of the skin and subcutaneous tissue, unspecified; Z89.421 Acquired absence of other right toe(s); Z79.2 Long term (current) use of antibiotics
CPT/HCPCS: 15275; Q4105

== ENCOUNTER → 2020-07-07 14:35 | Outpatient (CLI) | payer MEDICARE, OTHER, SELFPAY ==
[2019-10-20 18:38] VITALS: BMI 33.9
== END ==
PROVIDERS: PCP Internal Medicine; Referring Provider Internal Medicine; Visit Provider Family Medicine
DX: E11.621 Type 2 diabetes mellitus with foot ulcer (principal); L97.511 Non-pressure chronic ulcer of other part of right foot limited to breakdown of skin
CPT/HCPCS: 99212

== ENCOUNTER → 2020-07-14 14:24 | Outpatient (CLI) | payer MEDICARE, OTHER, SELFPAY ==
[2019-10-20 18:38] VITALS: BMI 33.9
== END ==
PROVIDERS: PCP Internal Medicine; Referring Provider Internal Medicine; Visit Provider Family Medicine
DX: Z86.31 Personal history of diabetic foot ulcer (principal); E11.42 Type 2 diabetes mellitus with diabetic polyneuropathy; Z89.421 Acquired absence of other right toe(s)
CPT/HCPCS: 99212; 99213

== ENCOUNTER 2022-05-28 16:02 | Inpatient (IN) | payer MEDICARE, OTHER, SELFPAY ==
[2019-10-20 18:38] VITALS: BMI 33.9
[2022-05-28] VITALS (22 sets, daily range): BP systolic 105–198; BP diastolic 59–92; PULSE 83–151; RESP 9–38; TEMP 37.3–37.7; O2SAT 86–99; BMI 34.5; BMI 30.3
--- NOTE | 2022-05-28 16:14 | DI.RAD.S_ITS ---
PROCEDURE: XR CHEST 1V INDICATIONS: Shortness of breath TECHNIQUE: One view of the chest was acquired. COMPARISON: [facility], , CHEST 1 VIEW, 01/11/2011, 15:08. FINDINGS: Surgical changes and devices: None. Lungs and pleura: Mild chronic interstitial prominence. No pleural effusions or pneumothorax. Mediastinum: Mediastinal contours appear normal. Mild cardiomegaly. Bones and chest wall: No suspicious bony lesions. Overlying soft tissues appear unremarkable. IMPRESSION: Mild cardiomegaly, mild chronic interstitial prominence. Dictated by: Jonathan Baeza M.D. on 05/28/2022 at 16:46 Approved by: Jonathan Baeza M.D. on 05/28/2022 at 16:46
[2022-05-28 16:24] LABS: Add Manual Diff / Slide Review NO; Basophils Absolute Auto 100 /uL (0-100); Basophils Percent Auto 0.6 % (0-2); Eosinophils Absolute Auto 0 /uL (0-450); Hematocrit 45.4 % (41-53); Hemoglobin 15.4 g/dL (13.5-17.5); Lymphocytes Absolute Auto 400 /uL (1100-4500); Lymphocytes Percent Auto 3.7 % (25-40); Mean Corpuscular HGB Conc 33.9 % (30-36); Mean Corpuscular Volume 88.5 fL (80-100); Monocytes Absolute Auto 800 /uL (0-900); Monocytes Percent Auto 7.5 % (3-14); Neutrophils Absolute Auto 9100 /uL (1500-7000); Neutrophils Percent Auto 88.2 % (50-75); Platelet Count 157 X10^3/uL (150-400); Red Blood Cell Count 5.13 X10^6/uL (4.5-5.9); White Blood Cell Count 10.4 X10^3/uL (4.5-11.0)
[2022-05-28 16:28] LABS: INR 1.2 (0.9-1.3); Prothrombin Time 13.5 SECONDS (10.1-12.7)
[2022-05-28 16:34] LABS: Lactate (Lactic Acid) 2.3 mmol/L (0.7-2.1)
[2022-05-28 16:35] LABS: Alanine Aminotransferase 26 IU/L (<50); Albumin 3.7 g/dL (3.5-5.0); Alkaline Phosphatase 112 U/L (38-126); Aspartate Aminotransferase 39 IU/L (17-59); BUN Creatinine Ratio 20.9 (6-22); Blood Urea Nitrogen 24 mg/dL (9-20); Calcium 8.4 mg/dL (8.4-10.2); Carbon Dioxide 21 mmol/L (22-32); Chloride 91 mmol/L (98-107); Estimated Glomerular Filt Rate > 60 mL/min (>60); Globulin 3.6 g/dL (1.7-4.1); HEMOLYSIS 25 (0-50); Potassium 4.5 mmol/L (3.4-5.1); Sodium 125 mmol/L (137-145); Total Protein 7.3 g/dL (6.3-8.2)
[2022-05-28 16:38] LABS: Glucose 531 mg/dL (80-110)
[2022-05-28 16:46] LABS: NT-proBNP (BNP-Adult 18+) 2060 pg/mL (<125)
[2022-05-28] MEDS: dilTIAZem 5 MG/ML SDV 20 MG IV (16:46)
--- NOTE | 2022-05-28 16:46 | ED.GENADULT ---
HPI - General Adult General Chief complaint: Shortness of Breath/Dyspnea Stated complaint: weakness x3 days Time Seen by Provider: 05/28/22 16:24 Source: patient and EMS Mode of arrival: EMS Limitations: no limitations History of Present Illness HPI narrative: 67 year male with a history of insulin-dependent diabetes and atrial fibrillation. Has not been on any medications for ?months? can not given exact reason why although he states that he does not want to follow-up with his doctors regarding his medical issues. He states it was not because he ran out of the medicines he just stop taking them. Over the past couple days he has had generalized fatigue and not feeling very well. He is not having chest pain nor palpitations nor shortness of breath. No problems urinating. No change in bowel habits. No nausea vomiting or abdominal pain. Related Data Home Medications Medication Instructions Recorded Confirmed aspirin 81 mg tablet,delayed 81 mg PO DAILY 10/20/19 10/20/19 release (Adult Low Dose Aspirin) atorvastatin 40 mg tablet 40 mg PO BEDTIME 10/20/19 10/20/19 carvedilol 12.5 mg tablet 12.5 mg PO DAILY 10/20/19 10/20/19 diltiazem HCl 180 mg 180 mg PO DAILY 10/20/19 10/20/19 capsule,extended release 24 hr, controlled insulin glargine 100 unit/mL 10 unit SUBCUT BEDTIME 10/20/19 10/20/19 subcutaneous solution (Lantus U-100 Insulin) lisinopril 20 mg tablet 20 mg PO DAILY 10/20/19 10/20/19 metformin 500 mg tablet 500 mg PO BID 10/20/19 10/20/19 rivaroxaban 20 mg tablet (Xarelto) 20 mg PO QPM 10/20/19 10/20/19 Previous Rx's Medication Instructions Recorded levofloxacin 750 mg tablet 750 mg PO DAILY #5 tabs 10/22/19 (Levaquin) Allergies Allergy/AdvReac Type Severity Reaction Status Date / Time piperacillin [From Zosyn] Allergy Severe Uticaria Verified 10/20/19 22:50 tazobactam [From Zosyn] Allergy Severe Uticaria Verified 10/20/19 22:50 Review of Systems Review of Systems ROS Unobtainable: All systems reviewed & are unremarkable except as noted in HPI and below Patient History Medical History Afib Diabetes Hyperlipidemia Hypertension Neuropathy of both feet Surgical History History of hernia repair History of neck surgery Family History Father Smoker Diabetes mellitus Heart attack Mother No significant medical problems Social History household members: spouse occupational status: employed Smoking Status: Never smoker alcohol intake: never Smoking Status: Never smoker alcohol intake frequency: other Substance Use Type: does not use Exam Initial Vital Signs Initial Vital Signs: Vital Signs Pulse Rate 151 H 05/28/22 16:13 Respiratory Rate 35 H 05/28/22 16:13 Pulse Oximetry 95 05/28/22 16:13 Const General: cooperative and No ill appearing HENMT Head: normal to inspection and normocephalic Resp Effort & Inspection: normal respiratory effort, no respiratory distress and tachypneic Auscultation: clear to auscultation bilaterally Cardio Rate: tachycardic Rhythm: abnormal rhythm Skin General: no rashes or lesions noted Neuro General: patient alert, patient awake and patient oriented x3 Cognition: normal cognition Extrem General: normal to inspection and capillary refill normal Course Orders Ordered: ED Orders 05/28/22 16:10 Complete Blood Count AUTO DIFF Stat Comprehensive Metabolic Panel Stat Ketones (Beta-Hydroxybutyrate) Stat Lactate (Lactic Acid) Stat Magnesium Stat NT-proBNP (BNP-Adult 18+) Stat Phosphorous Stat Prothrombin Time INR Stat Troponin I Stat 05/28/22 16:14 XR chest 1V Stat COVID19 -Nasal RAPID/Pre-Proc Stat EKG-12 Lead Stat Measure peak expiratory flow ONCE RT Consult Eval and Treat NOW 05/28/22 16:58 VBG [Venous Blood Gas] Stat Acetaminophen (Acetaminophen 325 Mg Tablet) 650 mg PO Q6H PRN PRN Reason: Fever/Mild Pain (1-3) Dextrose (Dextrose 50 % In Water 25 Gm/50 Ml Syringe) 25 gm IV PRN PRN PRN Reason: Hypoglycemia DILTIAZEM (Diltiazem 125 Mg/125 Ml-D5w) 125 mg in 125 mls @ 5 mls/hr IV TITRATE KATIE; Protocol Sodium Chloride (Normal Saline 0.9%) 1,000 mls @ 100 mls/hr IV CONT KATIE Stop: 05/29/22 05:44 Last Admin: 05/28/22 18:04 Dose: 100 mls/hr Magnesium Sulfate (Magnesium Sulfate) 2 gm in 50 mls @ 25 mls/hr IV NOW ONE Stop: 05/28/22 19:36 Insulin Human Lispro (Insulin Lispro 100 Unit/Ml 3ml Vial) 0 unit SUBCUT ACHS KATIE; Protocol Melatonin (Melatonin 3 Mg Tablet) 6 mg PO BEDTIME PRN PRN Reason: Insomnia Naloxone HCl (Naloxone 0.4 Mg/Ml Vial) 0.2 mg IV Q2MIN PRN PRN Reason: Opiate Reversal Polyethylene Glycol (Polyethylene Glycol 3350 17 Gm Powd.Pack) 17 gm PO DAILY PRN PRN Reason: Constipation Sennosides (Sennosides 8.6 Mg Tablet) 8.6 mg PO BID PRN PRN Reason: Constipation Discontinued Medications Diltiazem HCl (Diltiazem 5 Mg/Ml Sdv) 20 mg IV NOW ONE Stop: 05/28/22 16:35 Last Admin: 05/28/22 16:46 Dose: 20 mg Documented By: ED Sodium Chloride (Normal Saline 0.9%) 1,000 mls @ 1,000 mls/hr IV BOLUS ONE Stop: 05/28/22 17:44 Last Admin: 05/28/22 16:47 Dose: 1,000 mls/hr Documented By: ED Insulin Human Regular (Insulin Regular 100 Unit/Ml 3 Ml Vial) 20 unit IV NOW ONE Stop: 05/28/22 17:38 Last Admin: 05/28/22 18:05 Dose: 20 unit Vital Signs Vital signs: Vital Signs - 8 hr 05/28/22 16:15 05/28/22 16:13 05/28/22 16:30 Pulse Rate 151 H 151 H Respiratory Rate 19 35 H Blood Pressure 140/77 156/92 H Pulse Oximetry 99 95 Oxygen Delivery Method Room Air 05/28/22 16:30 Pulse Rate 146 H Respiratory Rate 38 H Blood Pressure Pulse Oximetry 94 Oxygen Delivery Method Medical Decision Making Lab Data Lab results reviewed: Yes I reviewed the patient's lab results. 05/28/22 16:10 05/28/22 16:10 Labs: Lab Results 05/28/22 05/28/22 05/28/22 Range/Units 16:10 16:10 16:10 WBC 10.4 (4.5-11.0) X10^3/uL RBC 5.13 (4.5-5.9) X10^6/uL Hgb 15.4 (13.5-17.5) g/dL Hct 45.4 (41-53) % MCV 88.5 (80-100) fL MCH 30.0 (26-34) PG MCHC 33.9 (30-36) % RDW 14.0 (11.6-14.8) % Plt Count 157 (150-400) X10^3/uL Neut % (Auto) 88.2 H (50-75) % Lymph % (Auto) 3.7 L (25-40) % [place] % (Auto) 7.5 (3-14) % Eos % (Auto) 0.0 L (2-4) % Baso % (Auto) 0.6 (0-2) % Neut # (Auto) 9100 H (4027-5123) /uL Lymph # (Auto) 400 L (2137-7280) /uL Lawrence # (Auto) 800 (0-900) /uL Eos # (Auto) 0 (0-450) /uL Baso # (Auto) 100 (0-100) /uL PT 13.5 H (10.1-12.7) SECONDS INR 1.2 (0.9-1.3) VBG pH (7.33-7.43) VBG pCO2 (45-50) mmHg VBG pO2 (35-45) mmHg VBG HCO3 (24-28) mmol/L VBG Total CO2 (24-29) mmol/L VBG O2 Saturation (70-75) % VBG Base Excess (0-4) mmol/L FiO2 Sodium 125 L (137-145) mmol/L Potassium 4.5 (3.4-5.1) mmol/L Chloride 91 L (98-107) mmol/L Carbon Dioxide 21 L (22-32) mmol/L BUN 24 H (9-20) mg/dL Creatinine 1.15 (0.66-1.25) mg/dL Estimated GFR > 60 (>60) mL/min BUN/Creatinine Ratio 20.9 (6-22) Glucose 531 H* (80-110) mg/dL Lactate (0.7-2.1) mmol/L Calcium 8.4 (8.4-10.2) mg/dL Phosphorus (2.3-3.7) mg/dL Magnesium (1.6-2.3) mg/dL Total Bilirubin 1.0 (0.2-1.3) mg/dL AST 39 (17-59) IU/L ALT 26 (<50) IU/L Alkaline Phosphatase 112 (38-126) U/L Troponin I 0.080 H (0.01-0.034) ng/mL NT-Pro-B Natriuret Pep 2060 H (<125) pg/mL Total Protein 7.3 (6.3-8.2) g/dL Albumin 3.7 (3.5-5.0) g/dL Globulin 3.6 (1.7-4.1) g/dL Albumin/Globulin Ratio 1.0 (1.0-2.8) Ketones (<0.27) mmol/L SARS-CoV-2 (PCR) (Negative) 05/28/22 05/28/22 05/28/22 Range/Units 16:10 16:10 16:10 WBC (4.5-11.0) X10^3/uL RBC (4.5-5.9) X10^6/uL Hgb (13.5-17.5) g/dL Hct (41-53) % MCV (80-100) fL MCH (26-34) PG MCHC (30-36) % RDW (11.6-14.8) % Plt Count (150-400) X10^3/uL Neut % (Auto) (50-75) % Lymph % (Auto) (25-40) % [place] % (Auto) (3-14) % Eos % (Auto) (2-4) % Baso % (Auto) (0-2) % Neut # (Auto) (5995-2901) /uL Lymph # (Auto) (8411-3320) /uL Lawrence # (Auto) (0-900) /uL Eos # (Auto) (0-450) /uL Baso # (Auto) (0-100) /uL PT (10.1-12.7) SECONDS INR (0.9-1.3) VBG pH (7.33-7.43) VBG pCO2 (45-50) mmHg VBG pO2 (35-45) mmHg VBG HCO3 (24-28) mmol/L VBG Total CO2 (24-29) mmol/L VBG O2 Saturation (70-75) % VBG Base Excess (0-4) mmol/L FiO2 Sodium (137-145) mmol/L Potassium (3.4-5.1) mmol/L Chloride (98-107) mmol/L Carbon Dioxide (22-32) mmol/L BUN (9-20) mg/dL Creatinine (0.66-1.25) mg/dL Estimated GFR (>60) mL/min BUN/Creatinine Ratio (6-22) Glucose (80-110) mg/dL Lactate 2.3 H (0.7-2.1) mmol/L Calcium (8.4-10.2) mg/dL Phosphorus 2.9 (2.3-3.7) mg/dL Magnesium 1.6 (1.6-2.3) mg/dL Total Bilirubin (0.2-1.3) mg/dL AST (17-59) IU/L ALT (<50) IU/L Alkaline Phosphatase (38-126) U/L Troponin I (0.01-0.034) ng/mL NT-Pro-B Natriuret Pep (<125) pg/mL Total Protein (6.3-8.2) g/dL Albumin (3.5-5.0) g/dL Globulin (1.7-4.1) g/dL Albumin/Globulin Ratio (1.0-2.8) Ketones 0.57 H (<0.27) mmol/L SARS-CoV-2 (PCR) (Negative) 05/28/22 05/28/22 Range/Units 16:14 16:58 WBC (4.5-11.0) X10^3/uL RBC (4.5-5.9) X10^6/uL Hgb (13.5-17.5) g/dL Hct (41-53) % MCV (80-100) fL MCH (26-34) PG MCHC (30-36) % RDW (11.6-14.8) % Plt Count (150-400) X10^3/uL Neut % (Auto) (50-75) % Lymph % (Auto) (25-40) % Lawrence % (Auto) (3-14) % Eos % (Auto) (2-4) % Baso % (Auto) (0-2) % Neut # (Auto) (8451-9743) /uL Lymph # (Auto) (1574-0524) /uL Lawrence # (Auto) (0-900) /uL Eos # (Auto) (0-450) /uL Baso # (Auto) (0-100) /uL PT (10.1-12.7) SECONDS INR (0.9-1.3) VBG pH 7.45 H (7.33-7.43) VBG pCO2 34.1 L (45-50) mmHg VBG pO2 24 L (35-45) mmHg VBG HCO3 24 (24-28) mmol/L VBG Total CO2 25 (24-29) mmol/L VBG O2 Saturation 46 L (70-75) % VBG Base Excess 0.0 (0-4) mmol/L FiO2 21 Sodium (137-145) mmol/L Potassium (3.4-5.1) mmol/L Chloride (98-107) mmol/L Carbon Dioxide (22-32) mmol/L BUN (9-20) mg/dL Creatinine (0.66-1.25) mg/dL Estimated GFR (>60) mL/min BUN/Creatinine Ratio (6-22) Glucose (80-110) mg/dL Lactate (0.7-2.1) mmol/L Calcium (8.4-10.2) mg/dL Phosphorus (2.3-3.7) mg/dL Magnesium (1.6-2.3) mg/dL Total Bilirubin (0.2-1.3) mg/dL AST (17-59) IU/L ALT (<50) IU/L Alkaline Phosphatase (38-126) U/L Troponin I (0.01-0.034) ng/mL NT-Pro-B Natriuret Pep (<125) pg/mL Total Protein (6.3-8.2) g/dL Albumin (3.5-5.0) g/dL Globulin (1.7-4.1) g/dL Albumin/Globulin Ratio (1.0-2.8) Ketones (<0.27) mmol/L SARS-CoV-2 (PCR) Negative (Negative) Point of Care Testing Glucose POC 500 Point of care testing: Point of Care Testing Glucose POC 500 Imaging Data Chest x-ray: Radiologist's Impression: PROCEDURE:? XR CHEST 1V ? INDICATIONS:? Shortness of breath ? TECHNIQUE:? One view of the chest was acquired.? ? COMPARISON:? [facility], , CHEST 1 VIEW, 01/11/2011, 15:08. ? FINDINGS:? ? Surgical changes and devices:? None.? ? Lungs and pleura:? Mild chronic interstitial prominence.? No pleural effusions or pneumothorax.? ? Mediastinum:? Mediastinal contours appear normal.? Mild cardiomegaly. ? Bones and chest wall:? No suspicious bony lesions.? Overlying soft tissues appear unremarkable.? ? IMPRESSION:? Mild cardiomegaly, mild chronic interstitial prominence. ECG Data Attestation: I personally reviewed and interpreted this ECG as follows: Interpretation: Atrial fibrillation Ventricular rate 121 Frequent PVCs Normal axis Normal QRS Normal QTC No ST T wave changes MDM Narrative Medical decision making narrative: Patient is in AFib with RVR. He has no chest pain or shortness of breath. He is not taken any of his medications to include his blood thinners and does not feel any palpitations. Not a candidate for cardioversion. Was given Cardizem because his medical record shows he is supposed to be on this at home. The bolus improved his heart rate somewhat but then he was started on a drip. He was not hypotensive. This is not unstable. Patient is also hyperglycemic. Not in DKA. PH 7.4. Anion gap 13. Corrected sodium is 132. Was given fluids. Given his presentation patient requires admission to the hospital. Discussed the case with Dr. Land who will admit. I also discussed the need for admission with the patient. He expressed understanding and agreement. Discharge Plan Departure Patient Disposition: Admitted As Inpatient Clinical Impression: Atrial fibrillation with RVR, Hyperglycemia Admit Date/Time: 05/28/22 17:35 Admit Provider: Bobby Land
[2022-05-28 16:47] LABS: COVID19 -Nasal RAPID Negative (Negative)
[2022-05-28] MEDS: SODIUM CHLORIDE 0.9% 1,000 ML 1000 ML IV (16:47)
[2022-05-28 16:51] LABS: Ketones (Beta-Hydroxybutyrate) 0.57 mmol/L (<0.27)
[2022-05-28 16:59] LABS: Magnesium 1.6 mg/dL (1.6-2.3); Phosphorous 2.9 mg/dL (2.3-3.7)
[2022-05-28 17:10] LABS: pH VBG 7.45 (7.33-7.43)
[2022-05-28 17:11] LABS: Fractionated Inspired Oxygen 21; HCO3 VBG 24 mmol/L (24-28); Oxygen Saturation VBG 46 % (70-75); PCO2 VBG 34.1 mmHg (45-50); PO2 VBG 24 mmHg (35-45); Total CO2 VBG 25 mmol/L (24-29)
--- NOTE | 2022-05-28 17:38 | DI.ECHO.S_ITS ---
[facility] +---------+ : : [address] : : : : [id number] : : : : Phone: [phone]---------+ Echocardiogram Report + + :Name: SHAINA NIETO Study Date: 05/29/2022 Height: 72 in : :[facility] ReadingLocation: Weight: 255 lb : : Gender: Male BSA: 2.4 m2 : :: 1955 Age: 67 yrs BP: 123/60 mmHg: :Reason For Study: ATRIAL FIBRILLATION WITH RAPID VENTRICULAR : :RATE : :Ordering Physician: NICKO, : :MATEO Marquez D.O Performed By: Barbara Landaverde : :Referring: BAY MAHARAJ : + + Interpretation Summary The ejection fraction is estimated to be 35-40%. There is apical hypokinesis. There is mild to moderate global hypokinesis of the left ventricle. Left ventricular wall thickness is mildly increased. There is mild to moderate mitral regurgitation. There is mild tricuspid regurgitation. The right ventricular systolic pressure is estimated to be at least 50 mmHg based on an estimated right atrial pressure of 8 mm Hg. Procedure: A two-dimensional transthoracic echocardiogram with color flow and Doppler was performed. The study quality was technically difficult. Comparison is made with the echocardiogram of 01/11/2011. A contrast injection of Definity was performed to improve assessment of LV function. Contrast was injected into an intravenous site in the right arm. A total of 2 cc of contrast was given. The patient was in atrial fibrillation with heart rates between 73-98 bpm during the exam. Left Ventricle: The left ventricle is normal in size. Left ventricular wall thickness is mildly increased. The ejection fraction is estimated to be 35- 40%. There is apical hypokinesis. There is mild to moderate global hypokinesis of the left ventricle. Diastolic function could not be accurately assessed due to atrial fibrillation. Right Ventricle: The right ventricle is normal in size and function. Atria: The left atrium is severely dilated. Right atrial size is normal. There is no Doppler evidence for an interatrial shunt. Mitral Valve: The mitral valve leaflets appear mildly thickened, but open well. There is mild mitral annular calcification. There is mild to moderate mitral regurgitation. Aortic Valve: The aortic valve is trileaflet. The aortic valve opens well. There is no aortic valve stenosis. No aortic regurgitation is present. Tricuspid Valve: The tricuspid valve leaflets are thin and pliable. There is mild tricuspid regurgitation. The right ventricular systolic pressure is estimated to be at least 50 mmHg based on an estimated right atrial pressure of 8 mm Hg. Pulmonic Valve: The pulmonic valve leaflets are thin and pliable; valve motion is normal. There is no pulmonic valvular regurgitation. Great Vessels: The aortic root is normal size. The dimensions of the ascending aorta are normal. The IVC is dilated (diameter is greater than 2.1 cm) yet it collapses greater than 50% with a sniff. This suggests a right atrial pressure of 8 mm Hg. Pericardium/ Pleura There is no pericardial effusion. There is no pleural effusion. MMode/2D Measurements & Calculations LVIDd: 5.0 cm LVOT diam: 2.2 cm LVIDs: 4.0 cm Ao root diam: 3.6 cm FS: 19.6 % asc Aorta Diam: 3.0 cm EPSS: 1.5 cm Ao Arch Diam (Prox Trans): 3.1 cm IVSd: 1.2 cm LVPWd: 0.98 cm LV cosby. diameter/BSA (cm/m^2): 2.1 LV sys. diameter/BSA (cm/m^2): 1.7 LA A2 area: 32.7 cm2 RA long axis: 6.3 cm LA A4 area: 32.6 cm2 RA area: 19.4 cm2 LA length (vol): 6.9 cm RA vol: 51.0 ml LA vol: 130.6 ml RA : 21.6 ml/m2 LA vol index: 55.3 ml/m2 IVC diam: 2.3 cm RVD1 (basal): 3.7 cm RVD2 (mid): 2.5 cm TAPSE: 2.0 cm Doppler Measurements & Calculations Ao V2 max: 122.2 cm/sec LVOT Max Juliocesar: 79.3 cm/sec Ao V2 mean: 88.6 cm/sec LV V1 max P.5 mmHg Ao max P.0 mmHg LV V1 VTI: 13.8 cm Ao mean P.5 mmHg ALAN(I,D): 2.6 cm2 Ao V2 VTI: 19.5 cm ALAN(V,D): 2.4 cm2 sev ratio: 0.71 ALAN indexed to BSA (cm^2/m^2): 1.1 MV E max juliocesar: 119.3 cm/sec TR max juliocesar: 322.0 cm/sec MV A max juliocesar: 1.1 cm/sec TR max P.5 mmHg MV E/A: 107.3 PA V2 max: 112.0 cm/sec Med Peak E' Juliocesar: 6.4 cm/sec PA V2 mean: 76.7 cm/sec E/E' med: 18.6 PA mean P.7 mmHg Lat Peak E' Juliocesar: 11.8 cm/sec PA pr(Accel): 34.0 mmHg E/E' lat: 10.1 E/e' average: 14.3 MV dec time: 0.18 sec SV(LVOT): 51.6 ml Reading Physician:10:47 AM
--- NOTE | 2022-05-28 17:45 | P.HP_ITS ---
History of Present Illness History of Present Illness Date Patient Seen: 05/28/22 Chief complaint: weakness x3 days Narrative: Gorge Fuller is a 67yo M with PMH of A-fib, DM2, HTN, HLD, and neuropathy who presents with 3 days of weakness and found to be in A-fib RVR with BG of 531. He reports non-compliance with any of his medications for several months because I got tired of it. [place]. [place] notes feeling poorly the past couple days and was stumbling through the house. Had a fall at home in the bathroom but did not hit his head. 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 Denies smoking or drinking alcohol. Denies NV, SOB, CP, abd pain or palpitations. In the ED found to be in A-fib RVR to 150's. BG 531 but not in DKA. Started on dilt drip. Patient History Medical History Afib Diabetes Hyperlipidemia Hypertension Neuropathy of both feet Surgical History History of hernia repair History of neck surgery Family & Social History Family History Father Smoker Diabetes mellitus Heart attack Mother No significant medical problems Social History: household members spouse Safety & Behavioral: Feels Safe in Current Yes Environment Tobacco & Substance use: Smoking Status Never smoker alcohol intake never alcohol intake frequency other Substance Use Type does not use Meds Home Medications and Allergies Home Medications Medication Instructions Recorded Confirmed Type aspirin 81 mg tablet,delayed 81 mg PO DAILY 10/20/19 10/20/19 History release (Adult Low Dose Aspirin) atorvastatin 40 mg tablet 40 mg PO BEDTIME 10/20/19 10/20/19 History carvedilol 12.5 mg tablet 12.5 mg PO DAILY 10/20/19 10/20/19 History diltiazem HCl 180 mg 180 mg PO DAILY 10/20/19 10/20/19 History capsule,extended release 24 hr, controlled insulin glargine 100 unit/mL 10 unit SUBCUT BEDTIME 10/20/19 10/20/19 History subcutaneous solution (Lantus U-100 Insulin) lisinopril 20 mg tablet 20 mg PO DAILY 10/20/19 10/20/19 History metformin 500 mg tablet 500 mg PO BID 10/20/19 10/20/19 History rivaroxaban 20 mg tablet (Xarelto) 20 mg PO QPM 10/20/19 10/20/19 History levofloxacin 750 mg tablet 750 mg PO DAILY #5 tabs 10/22/19 Rx (Levaquin) Allergies Allergy/AdvReac Type Severity Reaction Status Date / Time piperacillin [From Zosyn] Allergy Severe Uticaria Verified 10/20/19 22:50 tazobactam [From Zosyn] Allergy Severe Uticaria Verified 10/20/19 22:50 Review of Systems Review of Systems Narrative: All other systems reviewed with the patient and are negative unless otherwise stated. Exam Vital Signs (past 8 hours): - 05/28/22 16:15 05/28/22 16:13 05/28/22 16:30 Pulse Rate 151 H 151 H Respiratory Rate 19 35 H Blood Pressure 140/77 156/92 H Pulse Oximetry 99 95 Oxygen Delivery Method Room Air 05/28/22 16:30 Pulse Rate 146 H Respiratory Rate 38 H Blood Pressure Pulse Oximetry 94 Oxygen Delivery Method Oxygen Delivery Method Room Air Narrative Exam Narrative: GEN: no acute distress, ambivilent HEENT: moist mucous membranes, PERRL NECK: trachea midline, no JVD CV: tachy, irregular, no murmurs PULM: mild expiratory wheezes ABD: soft, nontender, nondistended, no organomegaly EXT: warm and well perfused with no edema, hemosiderin skin changes consistent with chronic venous stasis, multiple elongated toenails with crustiness, no ulcers on feet/toes NEURO: awake, alert, oriented, no focal deficits Objective Labs 05/28/22 16:10 05/28/22 16:10 Labs: Laboratory Results - last 24 hr 05/28/22 05/28/22 05/28/22 16:10 16:10 16:10 WBC 10.4 RBC 5.13 Hgb 15.4 Hct 45.4 MCV 88.5 MCH 30.0 MCHC 33.9 RDW 14.0 Plt Count 157 Neut % (Auto) 88.2 H Lymph % (Auto) 3.7 L [place] % (Auto) 7.5 Eos % (Auto) 0.0 L Baso % (Auto) 0.6 Neut # (Auto) 9100 H Lymph # (Auto) 400 L [place] # (Auto) 800 Eos # (Auto) 0 Baso # (Auto) 100 PT 13.5 H INR 1.2 VBG pH VBG pCO2 VBG pO2 VBG HCO3 VBG Total CO2 VBG O2 Saturation VBG Base Excess FiO2 Sodium 125 L Potassium 4.5 Chloride 91 L Carbon Dioxide 21 L BUN 24 H Creatinine 1.15 Estimated GFR > 60 BUN/Creatinine Ratio 20.9 Glucose 531 H* Lactate Calcium 8.4 Phosphorus Magnesium Total Bilirubin 1.0 AST 39 ALT 26 Alkaline Phosphatase 112 Troponin I 0.080 H NT-Pro-B Natriuret Pep 2060 H Total Protein 7.3 Albumin 3.7 Globulin 3.6 Albumin/Globulin Ratio 1.0 Ketones SARS-CoV-2 (PCR) 05/28/22 05/28/22 05/28/22 16:10 16:10 16:10 WBC RBC Hgb Hct MCV MCH MCHC RDW Plt Count Neut % (Auto) Lymph % (Auto) [place] % (Auto) Eos % (Auto) Baso % (Auto) Neut # (Auto) Lymph # (Auto) [place] # (Auto) Eos # (Auto) Baso # (Auto) PT INR VBG pH VBG pCO2 VBG pO2 VBG HCO3 VBG Total CO2 VBG O2 Saturation VBG Base Excess FiO2 Sodium Potassium Chloride Carbon Dioxide BUN Creatinine Estimated GFR BUN/Creatinine Ratio Glucose Lactate 2.3 H Calcium Phosphorus 2.9 Magnesium 1.6 Total Bilirubin AST ALT Alkaline Phosphatase Troponin I NT-Pro-B Natriuret Pep Total Protein Albumin Globulin Albumin/Globulin Ratio Ketones 0.57 H SARS-CoV-2 (PCR) 05/28/22 05/28/22 16:14 16:58 WBC RBC Hgb Hct MCV MCH MCHC RDW Plt Count Neut % (Auto) Lymph % (Auto) [place] % (Auto) Eos % (Auto) Baso % (Auto) Neut # (Auto) Lymph # (Auto) [place] # (Auto) Eos # (Auto) Baso # (Auto) PT INR VBG pH 7.45 H VBG pCO2 34.1 L VBG pO2 24 L VBG HCO3 24 VBG Total CO2 25 VBG O2 Saturation 46 L VBG Base Excess 0.0 FiO2 21 Sodium Potassium Chloride Carbon Dioxide BUN Creatinine Estimated GFR BUN/Creatinine Ratio Glucose Lactate Calcium Phosphorus Magnesium Total Bilirubin AST ALT Alkaline Phosphatase Troponin I NT-Pro-B Natriuret Pep Total Protein Albumin Globulin Albumin/Globulin Ratio Ketones SARS-CoV-2 (PCR) Negative Assessment & Plan Assessment & Plan narrative: # AFib with RVR -heart rate 150s on arrival to ED, lowered to 120's with IV push of 20 mg Cardizem but then went back up since started on Dilt drip -continue Dilt drip, wean as able -obtain echo -patient apparently not compliant with his soco blockers and Xarelto -restart carvedilol and diltiazem once Dilt drip off -continue home Xarelto -will need 3mo refills of meds on dc # poorly controlled type 2 diabetes with hyperglycemia, not in DKA -BG 531 on admission, VBG 7.45 and bicarb 21 -start insulin drip, received 20 units regular insulin and dropped to 450 -hold home metformin -continue home Lantus in the morning once drip weaned off -A1c 14%, consult jail guard -will need 3mo refills of meds on dc # history of diabetic ulcer, with likely diabetic neuropathy -patient missing right 3rd toe from prior ulcer and osteo -patient has mutiple elongated toenails which need trimming -will need outpatient podiatry follow-up # hypertension, chronic -continue home lisinopril -will need 3mo refills of meds on dc # hyperlipidemia, chronic -continue home Lipitor -will need 3mo refills of meds on dc Code status is full code. COVID negative. DVT prophylaxis with Xarelto. Proxy is Jess Fuller. I have reviewed home meds and used all available resources to reconcile the home meds. This patient will be admitted as inpatient and will require greater than 2 midnights of hospital time to treat Afib RVR. Time Spent With Patient Critical Care time: I spent a total of [] minutes of critical care time on this patient's care today; this time is exclusive of procedural time.
[2022-05-28] MEDS: SODIUM CHLORIDE 0.9% 1,000 ML 100 ML IV ×2 (18:04→18:31)
[2022-05-28] MEDS: INSULIN REGULAR 100 UNIT/ML 3 ML VIAL 20 UNIT IV (18:05)
[2022-05-28 18:18] LABS: Reflexed Lactate in 2 Hours Y
[2022-05-28 18:24] LABS: Hemoglobin A1C% w Est Avg Glu > 14.0 % (4.0-6.0)
[2022-05-28] MEDS: DILTIAZEM 125 MG/125 ML PIGGYBACK IV (18:31)
[2022-05-28] MEDS: MAGNESIUM SULFATE 2 GM/50 ML PIGGYBACK IV (18:32)
[2022-05-28] MEDS: SODIUM CHLORIDE 0.9% 250 ML 21 ML IV (18:33)
[2022-05-28 18:41] LABS: Procalcitonin 0.49 ng/mL (<0.5)
[2022-05-28 19:07] LABS: Lactate 2HR (Lactic Acid Rflx) 1.9 mmol/L (0.7-2.1)
[2022-05-28 20:06] LABS: Appearance Urine UA CLEAR; Bilirubin Urine UA NEGATIVE (NEGATIVE); Color Urine UA YELLOW; Glucose Urine UA 3+ g/dL (Negative); Ketones Urine UA 1+ (NEGATIVE); Leukocyte Esterase Urine UA NEGATIVE (NEGATIVE); Nitrite Urine UA NEGATIVE (Negative); Occult Blood Urine UA 2+ (Negative); Protein Urine UA 2+ (Negative); Specific Gravity Urine UA 1.015 (1.000-1.035); Urobilinogen Urine UA 0.2 E.U./dL (0.2); pH Urine UA 5.5 (4.5-8.0)
[2022-05-28 20:11] LABS: MRSA (Nasal) PCR Not Detected (Not Detect)
[2022-05-28 20:12] LABS: UR Morphine/Opiate cutoff 300 Negative (Negative); Ur Creatinine Normal (Normal); Ur Specific Gravity Normal (Normal); Urine Amphetamines Negative (Negative); Urine Barbiturates Negative (Negative); Urine Cocaine Negative (Negative); Urine MDMA Negative (Negative); Urine Methamphetamines Negative (Negative); Urine Phencyclidine Negative (Negative); Urine Tetrahydrocannabinol Negative (Negative); Urine pH Normal (Normal)
[2022-05-28 20:13] LABS: Urine Benzodiazepines Negative (Negative); Urine Methadone Negative (Negative); Urine Oxycodone Negative (Negative); Urine Tricyclic Antidepressant Negative (Negative)
[2022-05-28 20:22] LABS: Bacteria Urine None Seen; Culture Indicated Urine Cult Not Indicated; RBC Urine None Seen (0-5/HPF); WBC Urine None Seen (0-5/HPF)
[2022-05-28] MEDS: ATORVASTATIN 20 MG TABLET 40 MG PO (20:29)
[2022-05-28] MEDS: MELATONIN 3 MG TABLET 6 MG PO (20:29)
[2022-05-28] MEDS: INSULIN GLARGINE 100 UNIT/ML 3ML PEN 15 UNIT SUBCUT (20:30)
[2022-05-28] MEDS: INSULIN LISPRO 100 UNIT/ML 3ML VIAL SUBCUT (21:12)
[2022-05-28 21:59] LABS: Troponin I 0.118 ng/mL (0.01-0.034)
[2022-05-29] VITALS (41 sets, daily range): BP systolic 91–141; BP diastolic 52–84; PULSE 63–104; RESP 20–43; TEMP 36.6–37.1; O2SAT 90–97
[2022-05-29 04:58] LABS: Add Manual Diff / Slide Review NO; Basophils Absolute Auto 0 /uL (0-100); Basophils Percent Auto 0.4 % (0-2); Eosinophils Absolute Auto 0 /uL (0-450); Hematocrit 42.2 % (41-53); Hemoglobin 14.4 g/dL (13.5-17.5); Lymphocytes Absolute Auto 600 /uL (1100-4500); Lymphocytes Percent Auto 6.9 % (25-40); Mean Corpuscular HGB Conc 34.1 % (30-36); Mean Corpuscular Hemoglobin 29.8 PG (26-34); Mean Corpuscular Volume 87.6 fL (80-100); Monocytes Absolute Auto 800 /uL (0-900); Monocytes Percent Auto 10.2 % (3-14); Neutrophils Absolute Auto 6800 /uL (1500-7000); Neutrophils Percent Auto 82.5 % (50-75); Platelet Count 144 X10^3/uL (150-400); Red Blood Cell Count 4.82 X10^6/uL (4.5-5.9); Red Cell Distribution Width 13.8 % (11.6-14.8); White Blood Cell Count 8.3 X10^3/uL (4.5-11.0)
[2022-05-29 05:21] LABS: BUN Creatinine Ratio 22.5 (6-22); Blood Urea Nitrogen 25 mg/dL (9-20); Carbon Dioxide 22 mmol/L (22-32); Chloride 98 mmol/L (98-107); Estimated Glomerular Filt Rate > 60 mL/min (>60); Glucose 247 mg/dL (80-110); HEMOLYSIS < 15 (0-50); Potassium 3.7 mmol/L (3.4-5.1); Sodium 130 mmol/L (137-145)
[2022-05-29 05:32] LABS: Troponin I 0.096 ng/mL (0.01-0.034)
[2022-05-29 05:35] LABS: Magnesium 2.1 mg/dL (1.6-2.3)
[2022-05-29 05:51] LABS: TSH w/ Reflex to FT4 1.31 uIU/mL (0.47-4.68)
[2022-05-29] MEDS: INSULIN LISPRO 100 UNIT/ML 3ML VIAL SUBCUT ×4 (08:33→21:26)
[2022-05-29] MEDS: lisinopriL 20 MG TABLET PO (08:33)
[2022-05-29] MEDS: DILTIAZEM 125 MG/125 ML PIGGYBACK 10 MG IV (08:34)
--- NOTE | 2022-05-29 08:53 | P.PN_ITS ---
Subjective Subjective Date Patient Seen: 05/29/22 Exam Vital Signs (past 8 hours): - 05/29/22 01:00 05/29/22 01:00 05/29/22 01:08 Temperature Pulse Rate 88 79 Respiratory Rate 29 H 28 H Blood Pressure 118/56 L Pulse Oximetry 92 93 Oxygen Delivery Method Oxygen Flow Rate 05/29/22 01:30 05/29/22 01:30 05/29/22 02:00 Temperature Pulse Rate 78 Respiratory Rate 29 H Blood Pressure 110/56 L 117/84 Pulse Oximetry 93 Oxygen Delivery Method Oxygen Flow Rate 05/29/22 02:00 05/29/22 02:17 05/29/22 02:30 Temperature Pulse Rate 83 93 H 79 Respiratory Rate 34 H 35 H 32 H Blood Pressure Pulse Oximetry 94 93 90 L Oxygen Delivery Method Oxygen Flow Rate 05/29/22 02:30 05/29/22 03:00 05/29/22 03:00 Temperature Pulse Rate 80 Respiratory Rate 26 H Blood Pressure 105/52 L 99/58 L Pulse Oximetry 91 Oxygen Delivery Method Oxygen Flow Rate 05/29/22 03:33 05/29/22 03:33 05/29/22 04:00 Temperature 98.5 F Pulse Rate 78 Respiratory Rate 32 H Blood Pressure 107/62 107/64 Pulse Oximetry 95 Oxygen Delivery Method Oxygen Flow Rate 2 2 2 05/29/22 04:00 05/29/22 05:00 05/29/22 05:00 Temperature Pulse Rate 78 70 Respiratory Rate 33 H 29 H Blood Pressure 106/62 Pulse Oximetry 95 93 Oxygen Delivery Method Oxygen Flow Rate 2 2 2 05/29/22 05:22 05/29/22 06:00 05/29/22 06:00 Temperature Pulse Rate 77 83 Respiratory Rate 33 H 32 H Blood Pressure 123/60 Pulse Oximetry 93 95 Oxygen Delivery Method Oxygen Flow Rate 2 2 2 05/29/22 06:13 05/29/22 08:05 05/29/22 06:30 Temperature Pulse Rate 86 98 H Respiratory Rate 20 39 H Blood Pressure Pulse Oximetry 97 Oxygen Delivery Method Room Air Oxygen Flow Rate 2 05/29/22 07:00 05/29/22 07:00 05/29/22 07:30 Temperature Pulse Rate 89 99 H Respiratory Rate 27 H 29 H Blood Pressure 127/61 Pulse Oximetry 94 91 Oxygen Delivery Method Oxygen Flow Rate 05/29/22 08:00 05/29/22 08:00 05/29/22 08:30 Temperature Pulse Rate 92 H 80 Respiratory Rate 30 H 28 H Blood Pressure 141/68 H Pulse Oximetry 94 92 Oxygen Delivery Method Oxygen Flow Rate Oxygen Delivery Method Room Air Oxygen Flow Rate 2 Narrative Exam Narrative: GEN: no acute distress, ambivilent HEENT: moist mucous membranes, PERRL NECK: trachea midline, no JVD CV: tachy, irregular, no murmurs PULM: mild expiratory wheezes ABD: soft, nontender, nondistended, no organomegaly EXT: warm and well perfused with no edema, hemosiderin skin changes consistent with chronic venous stasis, multiple elongated toenails with crustiness, no ulcers on feet/toes NEURO: awake, alert, oriented, no focal deficits Objective Labs 05/29/22 04:02 05/29/22 04:02 Labs: Laboratory Results - last 24 hr 05/28/22 05/28/22 05/28/22 16:10 16:10 16:10 WBC 10.4 RBC 5.13 Hgb 15.4 Hct 45.4 MCV 88.5 MCH 30.0 MCHC 33.9 RDW 14.0 Plt Count 157 Neut % (Auto) 88.2 H Lymph % (Auto) 3.7 L [place] % (Auto) 7.5 Eos % (Auto) 0.0 L Baso % (Auto) 0.6 Neut # (Auto) 9100 H Lymph # (Auto) 400 L [place] # (Auto) 800 Eos # (Auto) 0 Baso # (Auto) 100 PT 13.5 H INR 1.2 VBG pH VBG pCO2 VBG pO2 VBG HCO3 VBG Total CO2 VBG O2 Saturation VBG Base Excess FiO2 Sodium 125 L Potassium 4.5 Chloride 91 L Carbon Dioxide 21 L BUN 24 H Creatinine 1.15 Estimated GFR > 60 BUN/Creatinine Ratio 20.9 Glucose 531 H* Hemoglobin A1c Lactate Calcium 8.4 Phosphorus Magnesium Total Bilirubin 1.0 AST 39 ALT 26 Alkaline Phosphatase 112 Troponin I 0.080 H NT-Pro-B Natriuret Pep 2060 H Total Protein 7.3 Albumin 3.7 Globulin 3.6 Albumin/Globulin Ratio 1.0 Procalcitonin TSH Urine Color Urine Appearance Urine pH Ur Specific [place] Urine Protein Urine Glucose (UA) Urine Ketones Urine Occult Blood Urine Nitrate Urine Bilirubin Urine Urobilinogen Ur Leukocyte Esterase Urine RBC Urine WBC Urine Bacteria Ur Culture Indicated? Nasal Screen MRSA (PCR) U Opiates 300ng/mL cut Ur Oxycodone Screen Urine Methadone Screen Ur Barbiturates Screen U Tricyclic Antidepress Ur Phencyclidine Scrn Ur Amphetamines Screen U Methamphetamines Scrn Ur MDMA Scrn (Ecstasy) U Benzodiazepines Scrn Urine Cocaine Screen U Marijuana (THC) Screen Ketones SARS-CoV-2 (PCR) 05/28/22 05/28/22 05/28/22 16:10 16:10 16:10 WBC RBC Hgb Hct MCV MCH MCHC RDW Plt Count Neut % (Auto) Lymph % (Auto) [place] % (Auto) Eos % (Auto) Baso % (Auto) Neut # (Auto) Lymph # (Auto) [place] # (Auto) Eos # (Auto) Baso # (Auto) PT INR VBG pH VBG pCO2 VBG pO2 VBG HCO3 VBG Total CO2 VBG O2 Saturation VBG Base Excess FiO2 Sodium Potassium Chloride Carbon Dioxide BUN Creatinine Estimated GFR BUN/Creatinine Ratio Glucose Hemoglobin A1c Lactate 2.3 H Calcium Phosphorus 2.9 Magnesium 1.6 Total Bilirubin AST ALT Alkaline Phosphatase Troponin I NT-Pro-B Natriuret Pep Total Protein Albumin Globulin Albumin/Globulin Ratio Procalcitonin TSH Urine Color Urine Appearance Urine pH Ur Specific [place] Urine Protein Urine Glucose (UA) Urine Ketones Urine Occult Blood Urine Nitrate Urine Bilirubin Urine Urobilinogen Ur Leukocyte Esterase Urine RBC Urine WBC Urine Bacteria Ur Culture Indicated? Nasal Screen MRSA (PCR) U Opiates 300ng/mL cut Ur Oxycodone Screen Urine Methadone Screen Ur Barbiturates Screen U Tricyclic Antidepress Ur Phencyclidine Scrn Ur Amphetamines Screen U Methamphetamines Scrn Ur MDMA Scrn (Ecstasy) U Benzodiazepines Scrn Urine Cocaine Screen U Marijuana (THC) Screen Ketones 0.57 H SARS-CoV-2 (PCR) 05/28/22 05/28/22 05/28/22 16:10 16:10 16:14 WBC RBC Hgb Hct MCV MCH MCHC RDW Plt Count Neut % (Auto) Lymph % (Auto) [place] % (Auto) Eos % (Auto) Baso % (Auto) Neut # (Auto) Lymph # (Auto) [place] # (Auto) Eos # (Auto) Baso # (Auto) PT INR VBG pH VBG pCO2 VBG pO2 VBG HCO3 VBG Total CO2 VBG O2 Saturation VBG Base Excess FiO2 Sodium Potassium Chloride Carbon Dioxide BUN Creatinine Estimated GFR BUN/Creatinine Ratio Glucose Hemoglobin A1c > 14.0 H Lactate Calcium Phosphorus Magnesium Total Bilirubin AST ALT Alkaline Phosphatase Troponin I NT-Pro-B Natriuret Pep Total Protein Albumin Globulin Albumin/Globulin Ratio Procalcitonin 0.49 TSH Urine Color Urine Appearance Urine pH Ur Specific [place] Urine Protein Urine Glucose (UA) Urine Ketones Urine Occult Blood Urine Nitrate Urine Bilirubin Urine Urobilinogen Ur Leukocyte Esterase Urine RBC Urine WBC Urine Bacteria Ur Culture Indicated? Nasal Screen MRSA (PCR) U Opiates 300ng/mL cut Ur Oxycodone Screen Urine Methadone Screen Ur Barbiturates Screen U Tricyclic Antidepress Ur Phencyclidine Scrn Ur Amphetamines Screen U Methamphetamines Scrn Ur MDMA Scrn (Ecstasy) U Benzodiazepines Scrn Urine Cocaine Screen U Marijuana (THC) Screen Ketones SARS-CoV-2 (PCR) Negative 05/28/22 05/28/22 05/28/22 16:26 16:26 16:58 WBC RBC Hgb Hct MCV MCH MCHC RDW Plt Count Neut % (Auto) Lymph % (Auto) [place] % (Auto) Eos % (Auto) Baso % (Auto) Neut # (Auto) Lymph # (Auto) [place] # (Auto) Eos # (Auto) Baso # (Auto) PT INR VBG pH 7.45 H VBG pCO2 34.1 L VBG pO2 24 L VBG HCO3 24 VBG Total CO2 25 VBG O2 Saturation 46 L VBG Base Excess 0.0 FiO2 21 Sodium Potassium Chloride Carbon Dioxide BUN Creatinine Estimated GFR BUN/Creatinine Ratio Glucose Hemoglobin A1c Lactate Calcium Phosphorus Magnesium Total Bilirubin AST ALT Alkaline Phosphatase Troponin I NT-Pro-B Natriuret Pep Total Protein Albumin Globulin Albumin/Globulin Ratio Procalcitonin TSH Urine Color Yellow Urine Appearance Clear Urine pH 5.5 Ur Specific [place] 1.015 Urine Protein 2+ H Urine Glucose (UA) 3+ H Urine Ketones 1+ H Urine Occult Blood 2+ H Urine Nitrate Negative Urine Bilirubin Negative Urine Urobilinogen 0.2 Ur Leukocyte Esterase Negative Urine RBC None seen Urine WBC None seen Urine Bacteria None seen Ur Culture Indicated? Cult not indicated Nasal Screen MRSA (PCR) U Opiates 300ng/mL cut Negative Ur Oxycodone Screen Negative Urine Methadone Screen Negative Ur Barbiturates Screen Negative U Tricyclic Antidepress Negative Ur Phencyclidine Scrn Negative Ur Amphetamines Screen Negative U Methamphetamines Scrn Negative Ur MDMA Scrn (Ecstasy) Negative U Benzodiazepines Scrn Negative Urine Cocaine Screen Negative U Marijuana (THC) Screen Negative Ketones SARS-CoV-2 (PCR) 05/28/22 05/28/22 05/28/22 18:10 18:30 21:28 WBC RBC Hgb Hct MCV MCH MCHC RDW Plt Count Neut % (Auto) Lymph % (Auto) [place] % (Auto) Eos % (Auto) Baso % (Auto) Neut # (Auto) Lymph # (Auto) [place] # (Auto) Eos # (Auto) Baso # (Auto) PT INR VBG pH VBG pCO2 VBG pO2 VBG HCO3 VBG Total CO2 VBG O2 Saturation VBG Base Excess FiO2 Sodium Potassium Chloride Carbon Dioxide BUN Creatinine Estimated GFR BUN/Creatinine Ratio Glucose Hemoglobin A1c Lactate 1.9 Calcium Phosphorus Magnesium Total Bilirubin AST ALT Alkaline Phosphatase Troponin I 0.118 H NT-Pro-B Natriuret Pep Total Protein Albumin Globulin Albumin/Globulin Ratio Procalcitonin TSH Urine Color Urine Appearance Urine pH Ur Specific [place] Urine Protein Urine Glucose (UA) Urine Ketones Urine Occult Blood Urine Nitrate Urine Bilirubin Urine Urobilinogen Ur Leukocyte Esterase Urine RBC Urine WBC Urine Bacteria Ur Culture Indicated? Nasal Screen MRSA (PCR) Not detected U Opiates 300ng/mL cut Ur Oxycodone Screen Urine Methadone Screen Ur Barbiturates Screen U Tricyclic Antidepress Ur Phencyclidine Scrn Ur Amphetamines Screen U Methamphetamines Scrn Ur MDMA Scrn (Ecstasy) U Benzodiazepines Scrn Urine Cocaine Screen U Marijuana (THC) Screen Ketones SARS-CoV-2 (PCR) 05/29/22 05/29/22 05/29/22 04:02 04:02 04:02 WBC 8.3 RBC 4.82 Hgb 14.4 Hct 42.2 MCV 87.6 MCH 29.8 MCHC 34.1 RDW 13.8 Plt Count 144 L Neut % (Auto) 82.5 H Lymph % (Auto) 6.9 L [place] % (Auto) 10.2 Eos % (Auto) 0.0 L Baso % (Auto) 0.4 Neut # (Auto) 6800 Lymph # (Auto) 600 L [place] # (Auto) 800 Eos # (Auto) 0 Baso # (Auto) 0 PT INR VBG pH VBG pCO2 VBG pO2 VBG HCO3 VBG Total CO2 VBG O2 Saturation VBG Base Excess FiO2 Sodium 130 L Potassium 3.7 Chloride 98 Carbon Dioxide 22 BUN 25 H Creatinine 1.11 Estimated GFR > 60 BUN/Creatinine Ratio 22.5 H Glucose 247 H D Hemoglobin A1c Lactate Calcium 8.0 L Phosphorus Magnesium 2.1 Total Bilirubin AST ALT Alkaline Phosphatase Troponin I 0.096 H NT-Pro-B Natriuret Pep Total Protein Albumin Globulin Albumin/Globulin Ratio Procalcitonin TSH Urine Color Urine Appearance Urine pH Ur Specific [place] Urine Protein Urine Glucose (UA) Urine Ketones Urine Occult Blood Urine Nitrate Urine Bilirubin Urine Urobilinogen Ur Leukocyte Esterase Urine RBC Urine WBC Urine Bacteria Ur Culture Indicated? Nasal Screen MRSA (PCR) U Opiates 300ng/mL cut Ur Oxycodone Screen Urine Methadone Screen Ur Barbiturates Screen U Tricyclic Antidepress Ur Phencyclidine Scrn Ur Amphetamines Screen U Methamphetamines Scrn Ur MDMA Scrn (Ecstasy) U Benzodiazepines Scrn Urine Cocaine Screen U Marijuana (THC) Screen Ketones SARS-CoV-2 (PCR) 05/29/22 04:02 WBC RBC Hgb Hct MCV MCH MCHC RDW Plt Count Neut % (Auto) Lymph % (Auto) [place] % (Auto) Eos % (Auto) Baso % (Auto) Neut # (Auto) Lymph # (Auto) [place] # (Auto) Eos # (Auto) Baso # (Auto) PT INR VBG pH VBG pCO2 VBG pO2 VBG HCO3 VBG Total CO2 VBG O2 Saturation VBG Base Excess FiO2 Sodium Potassium Chloride Carbon Dioxide BUN Creatinine Estimated GFR BUN/Creatinine Ratio Glucose Hemoglobin A1c Lactate Calcium Phosphorus Magnesium Total Bilirubin AST ALT Alkaline Phosphatase Troponin I NT-Pro-B Natriuret Pep Total Protein Albumin Globulin Albumin/Globulin Ratio Procalcitonin TSH 1.31 Urine Color Urine Appearance Urine pH Ur Specific [place] Urine Protein Urine Glucose (UA) Urine Ketones Urine Occult Blood Urine Nitrate Urine Bilirubin Urine Urobilinogen Ur Leukocyte Esterase Urine RBC Urine WBC Urine Bacteria Ur Culture Indicated? Nasal Screen MRSA (PCR) U Opiates 300ng/mL cut Ur Oxycodone Screen Urine Methadone Screen Ur Barbiturates Screen U Tricyclic Antidepress Ur Phencyclidine Scrn Ur Amphetamines Screen U Methamphetamines Scrn Ur MDMA Scrn (Ecstasy) U Benzodiazepines Scrn Urine Cocaine Screen U Marijuana (THC) Screen Ketones SARS-CoV-2 (PCR) [facility] Medical History Afib Diabetes Hyperlipidemia Hypertension Neuropathy of both feet Surgical History History of hernia repair History of neck surgery Family History Father Smoker Diabetes mellitus Heart attack Mother No significant medical problems Social History household members: spouse occupational status: employed Smoking Status: Never smoker alcohol intake: never Assessment & Plan Assessment & Plan narrative: # AFib, with RVR component resolved -heart rate 150s on arrival to ED, started on dilt drip -weaned off dilt drip to po dilt, HR now 60-80's -echo came back showing EF 30-35%, spoke with Dr. Mosley cardiology and rec switching to metoprolol and f/u with them in clinic. 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 -patient apparently not compliant with his soco blockers and Xarelto -start metop 25mg q6h and transition to 50mg BID in AM, hold for low BP -continue home Xarelto, cards ok with no concurrent aspirin -will need 3mo refills of meds on dc # HFrEF -patient euvolemic, not in exacerbation -EF 30-35% with apical hypokinesis and mild-mod global LV hypokinesis, likely tachycardia induced to some degree -meds as above -needs outpatient cardiology referral from PCP # poorly controlled type 2 diabetes with hyperglycemia, not in DKA -BG 531 on admission, VBG 7.45 and bicarb 21 -hold home metformin -continue home Lantus -A1c 14%, consulted gerontological nurse practitioner -BG improved to 247 -will need 3mo refills of insulin/metformin on dc # hyponatremia -some element on admission of pseudohyponatremia with hyperglycemia, 125 corrects to 132 -currently mild at 132 # history of diabetic ulcer, with likely diabetic neuropathy -patient missing right 3rd toe from prior ulcer and osteo -patient has mutiple elongated toenails which need trimming -will need outpatient podiatry follow-up # hypertension, chronic -continue home lisinopril -will need 3mo refills of meds on dc # hyperlipidemia, chronic -continue home Lipitor -will need 3mo refills of meds on dc Code status is full code. COVID negative. DVT prophylaxis with Xarelto. Proxy is Jess Fuller. Dispo: Home on . Time Spent With Patient Critical Care time: I spent a total of [] minutes of critical care time on this patient's care today; this time is exclusive of procedural time.
[2022-05-29] MEDS: dilTIAZem CD 180 MG CAP 360 MG PO (09:11)
--- NOTE | 2022-05-29 10:51 | DIET.CONS ---
Dietary Consultation Note Admission Date: 05/28/2022 17:35 Assessment: 67 y/o M admitted for weakness x3d. RD consulted for suboptimal management of ?T2DM.? Met with pt at bedside to discuss barriers to DM management. On admission pts BG was 531 and A1c >14.? Barrier: Pt noted discontinuing all medications for ~1 month d/t being frustrated over having to attend monthly PCP visits for refills. Pt reports having previous DM education and plans to see spouse's PCP upon discharge. Pt states he is comfortable taking metformin and insulin, does not desire DM technology such as CGM. Diagnosis: altered nutrition related laboratory values (BG, A1c) r/t endocrine dysfuntion?aeb BG 531 (H) and A1c >14 on admission, discontinuation of medication for ~1 month d/t avoidance of PCP visits. Intervention: Collaborated with pt on how to overcome barriers. Pt seemed motivated, given his current hospitalized outcome, to find a new PCP and restart medication.? Monitoring/Evaluation: consult prn. Ht: 182.88 cm Wt: 101.5 kg BMI: 30.3 Last BM: 05/28/22 (05/28/22 17:43) Kj Score: 22 Nutrition Percent Meal Consumed 25% 05/29/22 09:35 Labs: RBC 4.82 X10^6/uL (4.5-5.9) 05/29/22 04:02 Hgb 14.4 g/dL (13.5-17.5) 05/29/22 04:02 Hct 42.2 % (41-53) 05/29/22 04:02 Creatinine 1.11 mg/dL (0.66-1.25) 05/29/22 04:02 Hemoglobin A1c > 14.0 % (4.0-6.0) H 05/28/22 16:10 Lactate 1.9 mmol/L (0.7-2.1) 05/28/22 18:10 NT-Pro-B Natriuret Pep 2060 pg/mL (<125) H 05/28/22 16:10 Electronically Signed by: Taisha Pantoja 05/29/22 10:51 Clinical Dietitian [address] [address]
--- NOTE | 2022-05-29 11:45 | CM.DANOTE ---
Addendum entered by Guadalupe Mar R.N. 05/29/22 12:35: Guadalupe Mar RN Case Manager Original Note: DCP: Case received EMR reviewed. Pt is a 67 yo male who arrived via ambulance with c/o and was admitted under the care of the hospitalist team with c/o fatigue and malaise. He is noted to have Afib with RVR, Poorly controlled type 2 diabetes with hyperglycemia, not in DKA, pt missing right 3rd toe from prior ulcer and osteo., HTN chronic. Pt has a hx of insulin-dependent diabetes and atrial fibrillation. This CM met with pt in his room. Introduced self and role. Pt A+Ox3. He confirms that he lives with his in [place]. He states that his goes to [place] Saturday- to care for their grandchildren. Pt states that he drives and does not use dme. Pt agrees that he stopped taking his medication because I ran out of it. Pt is in agreement to attain new PCP when discussed with this CM and to restart taking his medications appropriately due to the risks associated with not controlling his Heart rate and blood sugars. Pt states that he would like his to attempt to get him in as a new pt with her pcp. PCP: Pt reports [facility] Pt states that he does not currently have a doctor. Pt with at bedside and this CM present discussed that she will call her MD. Dr. Reeves and she will attempt to get him a new pt appt. Insurance: Medicare; for Life Plan: Home with when medically stable. Discharge Planning/Care Management CM Discharge Assessment Start: 05/29/22 11:36 Freq: Status: Active Protocol: Document 05/29/22 11:36 ADY (Rec: 05/29/22 11:45 ADY [id number]) Discharge Planning Assessment Assigned Supervisor Detasseling [employer] Guadalupe Mar RN Case Manager Advance Directives? No History Provided By Patient,Family Member,Medical Record Has Patient been admitted in last 30 No days? Prior Living Arrangements House Household Members spouse Type of transporation used prior to Public Transportation admit Independent with ADL's Yes Is patient alert and oriented? Yes Needs Assistance With Managing Medications Caregiver for Another No Barriers to Discharge No Discharge Plan Home Transportation Arrangement Spouse Whiteboard Updated in Patient Room with Yes name and ext. # of Supervisor Detasseling Crew Review Status In Process Next Review Type Continued Stay Review
[2022-05-29] MEDS: METOPROLOL IR 25 MG TABLET PO ×2 (12:36→18:11)
--- NOTE | 2022-05-29 16:08 | DI.RAD.S_ITS ---
PROCEDURE: XR CHEST 1V INDICATIONS: SOB TECHNIQUE: One view of the chest was acquired. COMPARISON: [facility], CR, XR CHEST 1V, 05/28/2022, 16:18. FINDINGS: Surgical changes and devices: None. Lungs and pleura: Left basilar atelectasis and infiltrate. Diffuse chronic interstitial changes present. Atherosclerotic vascular calcification noted in the aortic arch. Mediastinum: Mediastinal contours appear normal. Heart size is normal. Bones and chest wall: No suspicious bony lesions. Overlying soft tissues appear unremarkable. IMPRESSION: Left basilar atelectasis and or infiltrate Approved by: Bernard Ambrose M.D. on 05/29/2022 at 15:43
--- NOTE | 2022-05-29 16:30 | PC.NURSE ---
Addendum entered by Marlys Hampton R.N. 05/29/22 17:30: Patient to CT scan and back via wheelchair. RA at this time 92-94%. Original Note: Day Shift Patient reported increasing shortness of breath at 1610, SpO2 90-91% on RA, RR in the low 30s, lung sounds very decreased. HR in the 60s, afib w/ PVCs, BP 108/59. Repositioned pt in bed to promote greater lung expansion and placed on 2L NC which brought oxygen up to 92-95%. Also provided pt with IS, reaching up to 500-1000. Pt reported no significant change in shortness of breath after these interventions, denies chest pain. Dr. Land notified and order received for CXR which was done.
--- NOTE | 2022-05-29 17:12 | DI.CT.S_ITS ---
PROCEDURE: CT ANGIO CHEST PE PROTOCOL INDICATIONS: worsening dyspnea, tachypnea, r/o PE TECHNIQUE: After the administration of intravenous contrast, 2 mm thick sections acquired from the pulmonary apices to the posterior costophrenic angles. 3-dimensional maximum intensity projection (MIP) coronal and sagittal reformats were then acquired through the thorax. For radiation dose reduction, the following was used: automated exposure control, adjustment of mA and/or kV according to patient size. COMPARISON: None. FINDINGS: Image quality: Excellent. Pulmonary arteries: Pulmonary arteries are normal in size, and demonstrate no intraluminal filling defects to suggest central pulmonary embolism. Lungs and pleura: Extensive airspace opacities are noted scattered throughout left lower lobe and posterior aspect of left lingular segment. No right-sided airspace opacity is seen. No pleural effusions or pneumothorax. Central and peripheral airways are patent. Mediastinum: Heart size is enlarged, without pericardial effusion. Moderate atherosclerotic disease in coronary vessels and thoracic aorta is seen. Mildly enlarged mediastinal lymph nodes are noted measures up to 1.2 cm in size in precarinal space, and 1.5 cm in size in subcarinal space. Thoracic aorta is normal in caliber and enhancement. Esophagus is normal in caliber, without hiatal hernia. Bones and chest wall: No suspicious bony lesions. No acute vertebral body compression fracture. Degenerative disc disease throughout thoracic spine is seen. Thyroid gland is within normal limits. No axillary or supraclavicular adenopathy. Abdomen: Visualized upper abdominal solid organs appear normal in the early arterial phase of enhancement. IMPRESSION: 1. No evidence of pulmonary emboli. No thoracic aortic aneurysm. 2. Extensive airspace opacities in left lower lobe and posterior aspect of left lingular segment consistent with left-sided pulmonary infiltrates. No pleural effusion or pneumothorax. Right lung is clear. 3. Enlarged mediastinal lymph nodes likely represent reactive inflammatory nodes. Cardiomegaly, no pericardial effusion. Moderate atherosclerotic disease. Dictated by: Valdo Mccallum M.D. on 05/29/2022 at 17:46 Approved by: Valdo Mccallum M.D. on 05/29/2022 at 17:52
[2022-05-29] MEDS: RIVAROXABAN 10 MG TABLET 20 MG PO (17:25)
[2022-05-29 18:02] LABS: Add Manual Diff / Slide Review NO; Basophils Absolute Auto 100 /uL (0-100); Basophils Percent Auto 0.6 % (0-2); Eosinophils Absolute Auto 0 /uL (0-450); Hematocrit 43.4 % (41-53); Hemoglobin 14.7 g/dL (13.5-17.5); Lymphocytes Absolute Auto 200 /uL (1100-4500); Lymphocytes Percent Auto 2.1 % (25-40); Mean Corpuscular HGB Conc 33.8 % (30-36); Mean Corpuscular Hemoglobin 29.9 PG (26-34); Mean Corpuscular Volume 88.4 fL (80-100); Monocytes Absolute Auto 500 /uL (0-900); Monocytes Percent Auto 5.3 % (3-14); Neutrophils Absolute Auto 9100 /uL (1500-7000); Platelet Count 167 X10^3/uL (150-400); Red Blood Cell Count 4.91 X10^6/uL (4.5-5.9); Red Cell Distribution Width 13.4 % (11.6-14.8); White Blood Cell Count 9.9 X10^3/uL (4.5-11.0)
[2022-05-29] MEDS: INSULIN REGULAR 100 UNIT/ML 3 ML VIAL 20 UNIT SUBCUT (18:10)
[2022-05-29] MEDS: CEFEPIME 2 GM in SODIUM CHLORIDE 0.9% 100 ML IV (18:11)
[2022-05-29] MEDS: DOXYCYCLINE HYCLATE 100 MG TABLET PO ×2 (18:13→21:25)
[2022-05-29 18:26] LABS: Lactate (Lactic Acid) 2.1 mmol/L (0.7-2.1)
[2022-05-29 18:28] LABS: Alanine Aminotransferase 22 IU/L (<50); Alkaline Phosphatase 93 U/L (38-126); Aspartate Aminotransferase 37 IU/L (17-59); BUN Creatinine Ratio 25.6 (6-22); Blood Urea Nitrogen 33 mg/dL (9-20); Calcium 7.7 mg/dL (8.4-10.2); Carbon Dioxide 19 mmol/L (22-32); Chloride 91 mmol/L (98-107); Estimated Glomerular Filt Rate > 60 mL/min (>60); Globulin 2.9 g/dL (1.7-4.1); Glucose 424 mg/dL (80-110); HEMOLYSIS 22 (0-50); Potassium 4.5 mmol/L (3.4-5.1); Sodium 122 mmol/L (137-145); Total Protein 5.9 g/dL (6.3-8.2)
[2022-05-29 18:43] LABS: Procalcitonin 0.67 ng/mL (<0.5)
[2022-05-29 19:58] LABS: Reflexed Lactate in 2 Hours Y
[2022-05-29] MEDS: SODIUM CHLORIDE 0.9% 1,000 ML 100 ML IV (21:25)
[2022-05-29] MEDS: ATORVASTATIN 20 MG TABLET 40 MG PO (21:25)
[2022-05-29] MEDS: INSULIN GLARGINE 100 UNIT/ML 3ML PEN 20 UNIT SUBCUT (21:26)
[2022-05-29] MEDS: MELATONIN 3 MG TABLET 6 MG PO (21:49)
[2022-05-30] VITALS (22 sets, daily range): BP systolic 109–152; BP diastolic 53–82; PULSE 70–112; RESP 21–41; TEMP 36.4–37.2; O2SAT 87–94
[2022-05-30] MEDS: METOPROLOL IR 25 MG TABLET PO ×5 (00:36→23:03)
--- NOTE | 2022-05-30 01:41 | PC.NURSE ---
0131 Patient had 10 beat run of V tach. BP stable. Notified Dr. Daly of run of V tach. No new orders. Morning labs already ordered - BMP, Mg, and CBC.
[2022-05-30 03:36] LABS: Add Manual Diff / Slide Review NO; Basophils Absolute Auto 0 /uL (0-100); Basophils Percent Auto 0.3 % (0-2); Eosinophils Absolute Auto 0 /uL (0-450); Eosinophils Percent Auto 0.1 % (2-4); Hematocrit 43.1 % (41-53); Hemoglobin 14.6 g/dL (13.5-17.5); Lymphocytes Absolute Auto 400 /uL (1100-4500); Lymphocytes Percent Auto 4.1 % (25-40); Mean Corpuscular HGB Conc 33.9 % (30-36); Mean Corpuscular Hemoglobin 29.8 PG (26-34); Mean Corpuscular Volume 87.7 fL (80-100); Monocytes Absolute Auto 700 /uL (0-900); Monocytes Percent Auto 8.1 % (3-14); Neutrophils Absolute Auto 8100 /uL (1500-7000); Neutrophils Percent Auto 87.4 % (50-75); Platelet Count 163 X10^3/uL (150-400); Red Blood Cell Count 4.92 X10^6/uL (4.5-5.9); Red Cell Distribution Width 13.7 % (11.6-14.8); White Blood Cell Count 9.2 X10^3/uL (4.5-11.0)
[2022-05-30 03:47] LABS: Magnesium 2.1 mg/dL (1.6-2.3)
[2022-05-30 03:48] LABS: HEMOLYSIS 21 (0-50); Sodium 126 mmol/L (137-145)
[2022-05-30 03:49] LABS: Blood Urea Nitrogen 38 mg/dL (9-20); Carbon Dioxide 20 mmol/L (22-32); Chloride 95 mmol/L (98-107); Glucose 106 mg/dL (80-110); Potassium 3.8 mmol/L (3.4-5.1)
[2022-05-30] MEDS: CEFEPIME 2 GM in SODIUM CHLORIDE 0.9% 100 ML IV ×2 (06:10→18:46)
[2022-05-30 07:04] LABS: BUN Creatinine Ratio 25.3 (6-22); Estimated Glomerular Filt Rate 50 mL/min (>60)
[2022-05-30] MEDS: DOXYCYCLINE HYCLATE 100 MG TABLET PO ×2 (09:15→21:06)
--- NOTE | 2022-05-30 12:25 | PM.PN.1 ---
Subjective Subjective Interval history: Still a bit short of breath, still on 3L of supplemental oxygen. Denies chest pain, shortness of breath, nausea, vomiting. Exam Vital Signs (past 8 hours): - 05/30/22 05:00 05/30/22 05:00 05/30/22 06:00 Temperature Pulse Rate 93 H Respiratory Rate 33 H Blood Pressure 133/63 152/68 H Pulse Oximetry 92 Oxygen Flow Rate 3 05/30/22 06:00 05/30/22 07:00 05/30/22 07:00 Temperature Pulse Rate 98 H 87 Respiratory Rate 40 H 38 H Blood Pressure 117/66 Pulse Oximetry 94 90 L Oxygen Flow Rate 3 05/30/22 08:00 05/30/22 08:01 05/30/22 08:01 Temperature Pulse Rate 93 H 94 H Respiratory Rate 40 H 41 H Blood Pressure 129/64 Pulse Oximetry 93 94 Oxygen Flow Rate 05/30/22 09:00 05/30/22 09:00 05/30/22 10:52 Temperature 98.7 F Pulse Rate 92 H Respiratory Rate 38 H Blood Pressure 121/58 L Pulse Oximetry 93 Oxygen Flow Rate Oxygen Delivery Method Room Air Oxygen Flow Rate 3 Narrative Exam Narrative: GEN: no acute distress, mildly ill appearing on NC. HEENT: moist mucous membranes, PERRL NECK: trachea midline, no JVD CV: irregularly irregular rhythm with normal rate, no m/r/g. PULM: CTA b/l no wheezing rhonchi or rales ABD: soft, nontender, nondistended, no organomegaly EXT: warm and well perfused with no edema, hemosiderin skin changes consistent with chronic venous stasis, multiple elongated toenails with crustiness, no ulcers on feet/toes NEURO: awake, alert, oriented, no focal deficits Objective Labs 05/30/22 03:26 05/30/22 03:26 Labs: Laboratory Results - last 24 hr 05/29/22 05/29/22 05/29/22 17:51 17:51 17:51 WBC 9.9 RBC 4.91 Hgb 14.7 Hct 43.4 MCV 88.4 MCH 29.9 MCHC 33.8 RDW 13.4 Plt Count 167 Neut % (Auto) 92.0 H Lymph % (Auto) 2.1 L [place] % (Auto) 5.3 Eos % (Auto) 0.0 L Baso % (Auto) 0.6 Neut # (Auto) 9100 H Lymph # (Auto) 200 L [place] # (Auto) 500 Eos # (Auto) 0 Baso # (Auto) 100 Sodium 122 L Potassium 4.5 Chloride 91 L Carbon Dioxide 19 L BUN 33 H Creatinine 1.29 H Estimated GFR > 60 BUN/Creatinine Ratio 25.6 H Glucose 424 H D Lactate Calcium 7.7 L Magnesium Total Bilirubin 1.0 AST 37 ALT 22 Alkaline Phosphatase 93 Total Protein 5.9 L Albumin 3.0 L Globulin 2.9 Albumin/Globulin Ratio 1.0 Procalcitonin 0.67 H 05/29/22 05/29/22 05/30/22 17:51 20:08 03:26 WBC RBC Hgb Hct MCV MCH MCHC RDW Plt Count Neut % (Auto) Lymph % (Auto) [place] % (Auto) Eos % (Auto) Baso % (Auto) Neut # (Auto) Lymph # (Auto) [place] # (Auto) Eos # (Auto) Baso # (Auto) Sodium Potassium Chloride Carbon Dioxide BUN Creatinine Estimated GFR BUN/Creatinine Ratio Glucose Lactate 2.1 2.0 Calcium Magnesium 2.1 Total Bilirubin AST ALT Alkaline Phosphatase Total Protein Albumin Globulin Albumin/Globulin Ratio Procalcitonin 05/30/22 05/30/22 03:26 03:26 WBC 9.2 RBC 4.92 Hgb 14.6 Hct 43.1 MCV 87.7 MCH 29.8 MCHC 33.9 RDW 13.7 Plt Count 163 Neut % (Auto) 87.4 H Lymph % (Auto) 4.1 L [place] % (Auto) 8.1 Eos % (Auto) 0.1 L Baso % (Auto) 0.3 Neut # (Auto) 8100 H Lymph # (Auto) 400 L [place] # (Auto) 700 Eos # (Auto) 0 Baso # (Auto) 0 Sodium 126 L Potassium 3.8 Chloride 95 L Carbon Dioxide 20 L BUN 38 H Creatinine 1.50 H Estimated GFR 50 L BUN/Creatinine Ratio 25.3 H Glucose 106 D Lactate Calcium 8.0 L Magnesium Total Bilirubin AST ALT Alkaline Phosphatase Total Protein Albumin Globulin Albumin/Globulin Ratio Procalcitonin [facility] Medical History Afib Diabetes Hyperlipidemia Hypertension Neuropathy of both feet Surgical History History of hernia repair History of neck surgery Family History Father Smoker Diabetes mellitus Heart attack Mother No significant medical problems Social History household members: spouse occupational status: employed Smoking Status: Never smoker alcohol intake: never Assessment & Plan Assessment & Plan narrative: # AFib, with RVR component improved -heart rate 150s on arrival to ED, started on dilt drip -weaned off dilt drip to po dilt, HR now 60-80's -echo came back showing EF 30-35%, spoke with Dr. Mosley cardiology and rec switching to metoprolol and f/u with them in clinic. 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 -patient apparently not compliant with his soco blockers and Xarelto -continue metoprolol 50 mg BID, adjust as needed. -continue home Xarelto, cards ok with no concurrent aspirin -will need 3mo refills of meds on dc #acute respiratory failure with hypoxia, possible bacterial pneumonia - started on antibiotics for possible pneumonia , also possible heart failure but does have elevated procalcitonin. - furosemide not given, has worsening CEE over the past couple of days. - hold additional IV fluids today. # HFrEF -patient euvolemic, not in exacerbation -EF 30-35% with apical hypokinesis and mild-mod global LV hypokinesis, likely tachycardia induced to some degree -meds as above -needs outpatient cardiology referral from PCP # poorly controlled type 2 diabetes with hyperglycemia, not in DKA -BG 531 on admission, VBG 7.45 and bicarb 21 -hold home metformin -continue home Lantus -A1c 14%, consulted business services clerk -BG improved to 247 -will need 3mo refills of insulin/metformin on dc # hyponatremia -some element on admission of pseudohyponatremia with hyperglycemia but continues today with Na of 126. -unclear volume status at this time -will hold additional IV fluids as discussed above. # history of diabetic ulcer, with likely diabetic neuropathy -patient missing right 3rd toe from prior ulcer and osteo -patient has mutiple elongated toenails which need trimming -will need outpatient podiatry follow-up # hypertension, chronic -continue home lisinopril -will need 3mo refills of meds on dc # hyperlipidemia, chronic -continue home Lipitor -will need 3mo refills of meds on dc Code status is full code. COVID negative. DVT prophylaxis with Xarelto. Proxy is Jess Fuller. Dispo: Discharge home when hypoxia resolves. Time Spent With Patient Critical Care time: I spent a total of [] minutes of critical care time on this patient's care today; this time is exclusive of procedural time.
[2022-05-30] MEDS: INSULIN LISPRO 100 UNIT/ML 3ML VIAL SUBCUT ×2 (12:30→21:13)
[2022-05-30] MEDS: RIVAROXABAN 10 MG TABLET 20 MG PO (18:28)
--- NOTE | 2022-05-30 18:58 | PC.NURSE ---
1857--pt has become progressively more steady on feet as day has gone by; still uses his walker and standby assist; up in chair watching tv
--- NOTE | 2022-05-30 20:26 | PC.NURSE ---
[address] Daly that patient's Olanzapine was discontinued when patient was transferred from the floor to the ICU around 0100 on 05/29. Patient's fluoxetine was also discontinued after she had an EKG for chest pain during the day on 05/29 that gave a Qtc of 678. The EKG tracing is unclear and all other Qtc's on bedside monitor readings are between [address] Daly states he will pass this info on to Dr. Mcpherson. No new orders received.
[2022-05-30] MEDS: ATORVASTATIN 20 MG TABLET 40 MG PO (21:06)
[2022-05-30] MEDS: INSULIN GLARGINE 100 UNIT/ML 3ML PEN 20 UNIT SUBCUT (21:12)
[2022-05-30] MEDS: ACETAMINOPHEN 325 MG TABLET 650 MG PO (23:02)
[2022-05-30] MEDS: guaiFENesin ER 600 MG TAB PO (23:03)
[2022-05-30] MEDS: MELATONIN 3 MG TABLET 6 MG PO (23:03)
[2022-05-31] VITALS: BP 129/61; PULSE 108; RESP 30; TEMP 36.9; O2SAT 95
[2022-05-31 04:00] VITALS: BP 122/77; PULSE 93; RESP 25; TEMP 36.5; O2SAT 93
[2022-05-31 05:05] LABS: Add Manual Diff / Slide Review NO; Basophils Absolute Auto 0 /uL (0-100); Basophils Percent Auto 0.4 % (0-2); Eosinophils Absolute Auto 0 /uL (0-450); Eosinophils Percent Auto 0.3 % (2-4); Hematocrit 44.4 % (41-53); Hemoglobin 14.9 g/dL (13.5-17.5); Lymphocytes Absolute Auto 700 /uL (1100-4500); Lymphocytes Percent Auto 9.7 % (25-40); Mean Corpuscular HGB Conc 33.5 % (30-36); Mean Corpuscular Hemoglobin 29.4 PG (26-34); Mean Corpuscular Volume 87.8 fL (80-100); Monocytes Absolute Auto 600 /uL (0-900); Monocytes Percent Auto 8.9 % (3-14); Neutrophils Absolute Auto 5600 /uL (1500-7000); Neutrophils Percent Auto 80.7 % (50-75); Platelet Count 156 X10^3/uL (150-400); Red Blood Cell Count 5.06 X10^6/uL (4.5-5.9); Red Cell Distribution Width 14.1 % (11.6-14.8); White Blood Cell Count 6.9 X10^3/uL (4.5-11.0)
[2022-05-31 05:17] LABS: Magnesium 1.8 mg/dL (1.6-2.3)
[2022-05-31 05:21] LABS: BUN Creatinine Ratio 26.7 (6-22); Blood Urea Nitrogen 28 mg/dL (9-20); Calcium 7.9 mg/dL (8.4-10.2); Carbon Dioxide 22 mmol/L (22-32); Chloride 98 mmol/L (98-107); Estimated Glomerular Filt Rate > 60 mL/min (>60); Glucose 110 mg/dL (80-110); HEMOLYSIS < 15 (0-50); Potassium 3.7 mmol/L (3.4-5.1); Sodium 127 mmol/L (137-145)
[2022-05-31] MEDS: CEFEPIME 2 GM in SODIUM CHLORIDE 0.9% 100 ML IV (05:58)
[2022-05-31] MEDS: METOPROLOL IR 25 MG TABLET PO ×2 (05:59→12:00)
[2022-05-31] MEDS: ACETAMINOPHEN 325 MG TABLET 650 MG PO (06:21)
[2022-05-31 08:00] VITALS: BP 129/65; PULSE 90; RESP 24; TEMP 36.6; O2SAT 95
[2022-05-31] MEDS: DOXYCYCLINE HYCLATE 100 MG TABLET PO (08:17)
--- NOTE | 2022-05-31 10:18 | P.DS_ITS ---
History of Present Illness History of Present Illness Date Patient Seen: 05/31/22 Time Patient Seen: 10:23 Chief complaint: weakness x3 days Narrative: Per admitting provider, Gorge Fuller is a 67yo M with PMH of A-fib, DM2, HTN, HLD, and neuropathy who presents with 3 days of weakness and found to be in A-fib RVR with BG of 531. He reports non-compliance with any of his medications for several months because I got tired of it. [place]. He notes feeling poorly the past couple days and was stumbling through the house. Had a fall at home in the bathroom but did not hit his head. 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 Denies smoking or drinking alcohol. Denies NV, SOB, CP, abd pain or palpitations. In the ED found to be in A-fib RVR to 150's. BG 531 but not in DKA. Started on dilt drip. Discharge Providers Provider Date of admission: 05/28/22 17:35 Discharge Date: 05/31/22 Primary care physician: Teresa aWters MD Consults: 05/28/22 17:39 Consult to Dietitian, Adult Routine Comment: Reason For Exam: BG 531 on admission, not taking meds Discharge provider: Richar Mcpherson DO Summary Hospital Course Discharge Diagnosis: # AFib, with RVR component improved #acute respiratory failure with hypoxia, possible bacterial pneumonia # HFrEF # poorly controlled type 2 diabetes with hyperglycemia, not in DKA # hyponatremia # history of diabetic ulcer, with likely diabetic neuropathy # hypertension, chronic # hyperlipidemia, chronic #CEE, improved Hospital Course: This is a 67-year-old male with a past medical history of A-fib, DM2, HTN, HLD, and neuropathy who presented with fatigue was found to be in AFib with RVR. He was admitted on a diltiazem infusion initially, and was able to be weaned off ultimately with a beta-licha after his echocardiogram revealed an EF of 30- 35%. Licha was increased to 50 mg b.i.d. by the time of discharge, and the patient was started on low-dose lisinopril at 5 mg for his heart failure with reduced ejection fraction. On admission he was also to have poor diabetes control, with an A1c of 14%. He had improvement in his blood sugars with his home Lantus, and note is currently were recommended at the time of discharge though I do recommend close primary care follow-up and a glucose log at home to help guide therapy. Given his heart failure, would also recommend a GLP 1, or S GL T2 medication in the near future. His sodium was a bit low as well, initially this was probably due to pseudohyponatremia, but with improvement in his glucose his sodium remained a bit low though he was asymptomatic. This may have been in the setting of a low-flow state, given improvement with rate control as well as improvement in his creatinine over time, though the etiology is not entirely clear. On the day of discharge, the patient was no longer required supplemental therapy. He had been started on antibiotics for a possible bacterial pneumonia, though all cultures were negative he will be discharged on a few of cefdinir and doxycycline for a bacterial pneumonia, given the patient's piperacillin allergy. Follow-up with his primary care provider in the next 1-2 weeks, along with Cardiology given his reduced ejection fraction. Time Spent with Patient Time spent: Greater than 30 minutes Exam Vital Signs (past 8 hours): - 05/31/22 04:00 05/31/22 08:00 05/31/22 07:00 Temperature 97.7 F 97.9 F Pulse Rate 93 H 90 Respiratory Rate 25 H 24 Blood Pressure 122/77 129/65 Pulse Oximetry 93 95 Oxygen Delivery Method Room Air Oxygen Flow Rate 1.5 0 Oxygen Delivery Method Room Air Oxygen Flow Rate 0 Narrative Exam Narrative: GEN: no acute distress, mildly ill appearing on NC. HEENT: moist mucous membranes, PERRL NECK: trachea midline, no JVD CV: irregularly irregular rhythm with normal rate, no m/r/g. PULM: CTA b/l no wheezing rhonchi or rales ABD: soft, nontender, nondistended, no organomegaly EXT: warm and well perfused with no edema, hemosiderin skin changes consistent with chronic venous stasis, multiple elongated toenails with crustiness, no ulcers on feet/toes NEURO: awake, alert, oriented, no focal deficits Objective Labs 05/31/22 04:16 05/31/22 04:16 Labs: Laboratory Results - last 24 hr 05/31/22 05/31/22 05/31/22 04:16 04:16 04:16 WBC 6.9 RBC 5.06 Hgb 14.9 Hct 44.4 MCV 87.8 MCH 29.4 MCHC 33.5 RDW 14.1 Plt Count 156 Neut % (Auto) 80.7 H Lymph % (Auto) 9.7 L [place] % (Auto) 8.9 Eos % (Auto) 0.3 L Baso % (Auto) 0.4 Neut # (Auto) 5600 Lymph # (Auto) 700 L [place] # (Auto) 600 Eos # (Auto) 0 Baso # (Auto) 0 Sodium 127 L Potassium 3.7 Chloride 98 Carbon Dioxide 22 BUN 28 H Creatinine 1.05 Estimated GFR > 60 BUN/Creatinine Ratio 26.7 H Glucose 110 Calcium 7.9 L Magnesium 1.8 PFSH Medical History Afib Diabetes Hyperlipidemia Hypertension Neuropathy of both feet Surgical History History of hernia repair History of neck surgery Family History Father Smoker Diabetes mellitus Heart attack Mother No significant medical problems Social History household members: spouse occupational status: employed Smoking Status: Never smoker alcohol intake: never Discharge Plan Discharge Plan Patient Disposition: Home Provider Discharge Comment: You were admitted to the hospital with a rapid heart rate, developed need for oxygen possibly due to a pneumonia or mild heart failure that has improved. See medication adjustments noted below. Follow up with PCP and beef tagger for continued medication adjustments. Antibiotic for possible pneumonia sent to pharmacy to complete treatment at home. Discharge orders & Medications Prescriptions: New metoprolol succinate 50 mg tablet extended release 24 hr 50 mg PO BID 90 Days Qty: 180 0RF lisinopril 5 mg tablet 5 mg PO DAILY 90 Days Qty: 90 0RF doxycycline hyclate 100 mg Tablet 100 mg PO BID 5 Days Qty: 10 0RF cefdinir 300 mg capsule 300 mg PO BID 5 Days Qty: 10 0RF Continued atorvastatin 40 mg Tablet 40 mg PO BEDTIME metformin 500 mg Tablet 500 mg PO BID insulin glargine [Lantus U-100 Insulin] 100 unit/mL Solution 10 unit SUBCUT BEDTIME Xarelto 20 mg Tablet 20 mg PO QPM aspirin [Adult Low Dose Aspirin] 81 mg Tablet,Delayed Release (Dr/Ec) 81 mg PO DAILY Discontinued carvedilol 12.5 mg Tablet 12.5 mg PO DAILY lisinopril 20 mg Tablet 20 mg PO DAILY diltiazem HCl 180 mg Capsule,Ext.Rel 24h Degradable 180 mg PO DAILY Follow up/Referrals: Teresa Waters MD [Primary Care Provider] - Diet/Activity/Treatments Diet: Diet as Tolerated Activity: As tolerated Visit Report/Discharge Packet Stand Alone Forms: Patient Portal/API, Stroke Signs & Symptoms Discharge Data Primary Care Provider: Teresa Waters
[2022-05-31] MEDS: INSULIN LISPRO 100 UNIT/ML 3ML VIAL SUBCUT (12:05)
[2022-05-31 14:33] VITALS: BP 179/82; PULSE 62
--- NOTE | 2022-05-31 15:02 | CM.DPC ---
DCP Discharge Home Per MD, pt medically stable to d/c home today and no identified barriers to discharge. Per RN, provided pt with his discharge instructions and no concerns noted at this time. SW met bedside with pt and explained role and pt confirms he is agreeable and looking forward to discharging home today but has to wait for his spouse to pick him up as she was in [place] today babysitting the grandkids and will be back in town in about an hour. Pt confirms that he does not feel he has any d/c needs and declines HH as well. Plan: Patient to d/c home via spouse POV this evening and outpt f/u and no further SW needs at this time. YECENIA Medina
== END 2022-05-31 16:34 | disposition home or self-care (01) | DRG 637 ==
LOC: ED 17:34 → AC 17:36 → ICU 18:23
PROVIDERS: Admitting Provider Student in an Organized Health Care Education/Training Program; Emergency Provider Emergency Medicine; PCP Internal Medicine; Referring Provider Emergency Medicine; Visit Provider Student in an Organized Health Care Education/Training Program
DX: E11.65 Type 2 diabetes mellitus with hyperglycemia (principal); J15.9 Unspecified bacterial pneumonia; J96.01 Acute respiratory failure with hypoxia; I50.20 Unspecified systolic (congestive) heart failure; I48.91 Unspecified atrial fibrillation; E78.5 Hyperlipidemia, unspecified; I11.0 Hypertensive heart disease with heart failure; E11.40 Type 2 diabetes mellitus with diabetic neuropathy, unspecified; Z79.4 Long term (current) use of insulin; Z91.14 Patient's other noncompliance with medication regimen; Z20.822 Contact with and (suspected) exposure to COVID-19; Z79.84 Long term (current) use of oral hypoglycemic drugs; Z79.01 Long term (current) use of anticoagulants
CPT/HCPCS: 36415; 71045; 71275; 80048; 80053; 80305; 81001; 82009; 82805; 82962; 83036; 83605; 83735; 83880; 84100; 84145; 84443; 84484; 85025; 85610; 87635; 87797; 93005; 93306; 96374; 96375; 99284; C9803; J0692; J1815; J3475

== ENCOUNTER 2022-06-25 15:18 | Inpatient (IN) | payer MEDICARE, OTHER, SELFPAY ==
[2022-05-28 17:43] VITALS: BMI 30.3
[2022-06-25] VITALS (61 sets, daily range): BP systolic 88–193; BP diastolic 49–92; PULSE 73–209; RESP 27–53; TEMP 36.9–38.4; O2SAT 91–99; BMI 30.8
--- NOTE | 2022-06-25 15:26 | DI.RAD.S_ITS ---
PROCEDURE: XR CHEST 1V INDICATIONS: chest pain TECHNIQUE: One view of the chest was acquired. COMPARISON: [facility], CR, XR CHEST 1V, 05/29/2022, 16:16. FINDINGS: Surgical changes and devices: None. Lungs and pleura: Mild pulmonary vascular congestion is seen. No definite focal infiltrate. No pleural effusions or pneumothorax. Mediastinum: Mediastinal contours appear normal. Heart size is enlarged. Bones and chest wall: No suspicious bony lesions. Overlying soft tissues appear unremarkable. IMPRESSION: Mild pulmonary vascular congestion. No focal infiltrate, pleural effusion or pneumothorax. Dictated by: Valdo Mccallum M.D. on 06/25/2022 at 16:03 Approved by: Valdo Mccallum M.D. on 06/25/2022 at 16:03
--- NOTE | 2022-06-25 15:32 | ED_ITS ---
HPI - Arrhythmia/Palpitations General Chief Complaint: Arrhythmia/Palpitations Stated Complaint: vomiting/shaking/fever Time Seen by Provider: 06/25/22 15:29 Source: patient, family, RN notes reviewed and old records reviewed Mode of arrival: Family Vehicle Limitations: no limitations History of Present Illness HPI narrative: This is a 67-year-old male with known history of atrial fibrillation who is supposed to be anticoagulated on Xarelto, diabetes hypertension and dyslipidemia. According to patient's she is unsure if he is taking his medications regularly. He was admitted for AFib RVR in May and was not taking medications regularly at that time. Patient presents with 5 days of fevers generally feeling unwell he states his heart rate has been fast. He denies chest pain or shortness of breath he does state he is had some fever, he states he is felt unwell in general. No syncope. He is had nausea and vomiting on his way here to the hospital. He denies abdominal back or flank pain. He denies diarrhea constipation he denies dysuria urgency or frequency. He denies any new swelling in his extremities. His states he has not been telling her about any symptoms but she has noted he is had fevers for the last 5 days since Saturday. Patient denies any prior cardiac interventions no heart catheterization or stress test no ablation. He denies any prior surgeries. He states he is allergic to a penicillin type medication appears to be Zosyn. Patient denies active tobacco, alcohol or illicit drug use. He is accompanied by his who brought him today who states he refused transport via EMS and she is been arguing has him for several days to get him to come to the emergency department. Patient states his primary care is through the [facility]. He does not follow with a larry operator regularly. Related Data Home Medications Medication Instructions Recorded Confirmed insulin glargine 100 unit/mL 12 unit SUBCUT BEDTIME 10/20/19 06/25/22 subcutaneous solution (Lantus U-100 Insulin) metformin 500 mg tablet 500 mg PO BID 10/20/19 06/25/22 rivaroxaban 20 mg tablet (Xarelto) 20 mg PO QPM 10/20/19 06/25/22 Previous Rx's Medication Instructions Recorded lisinopril 5 mg tablet 5 mg PO DAILY 90 days #90 tabs 05/31/22 metoprolol succinate 50 mg 50 mg PO BID 90 days #180 tabs 05/31/22 tablet,extended release 24 hr Allergies Allergy/AdvReac Type Severity Reaction Status Date / Time piperacillin [From Zosyn] Allergy Severe Uticaria Verified 10/20/19 22:50 tazobactam [From Zosyn] Allergy Severe Uticaria Verified 10/20/19 22:50 Review of Systems Review of Systems ROS Unobtainable: All systems reviewed & are unremarkable except as noted in HPI and below Patient History Medical History (Updated 06/25/22 @ 17:33 by Flakita Alex DO) Afib Diabetes Hyperlipidemia Hypertension Neuropathy of both feet Surgical History History of hernia repair History of neck surgery Family History Father Smoker Diabetes mellitus Heart attack Mother No significant medical problems Social History household members: spouse occupational status: employed Smoking Status: Never smoker alcohol intake: never Smoking Status: Never smoker alcohol intake frequency: other Substance Use Type: does not use Exam Narrative Exam Narrative: GENERAL: Alert and oriented x three, diaphoretic in moderate distress patient does answer questions appropriately but appears to feel unwell HEENT: Head normocephalic, atraumatic, EOMI, pupils reactive, face symmetric, moist mucous membranes NECK: Supple, full range of motion CARDIOVASCULAR: Irregularly irregular and tachycardic without murmurs, rubs or gallops. No JVD. Trace edema bilaterally. RESPIRATORY: Breath sounds equal bilaterally, no wheezes rales or rhonchi. No accessory muscle use. Mild tachypnea. ABDOMEN: Soft, nontender. Nondistended. Normoactive bowel sounds all 4 quadrants. No guarding or rebound, rigidity, no mass : No CVA tenderness EXTREMITIES: Normal range of motion, no clubbing or edema. Neurovascularly intact NEUROLOGICAL: Cranial nerves II through XII grossly intact. Moving all e xtremities SKIN: Warm, diaphoretic, no petechiae, no rashes or lesions. Initial Vital Signs Initial Vital Signs: Vital Signs Pulse Rate 172 H 06/25/22 15:26 Respiratory Rate 51 H 06/25/22 15:26 Pulse Oximetry 95 06/25/22 15:26 Course Orders Ordered: ED Orders 06/25/22 15:25 BNP [NT-proBNP (BNP-Adult 18+)] Stat Blood Culture Stat Complete Blood Count AUTO DIFF Stat Comprehensive Metabolic Panel Stat Lactate (Lactic Acid) Stat Lipase Stat Magnesium Stat PTT Partial Thromboplastin Zia Stat Procalcitonin Stat Prothrombin Time INR Stat Troponin & CK Cardiac Panel Stat 06/25/22 15:26 XR chest 1V Stat EKG-12 Lead Stat 06/25/22 15:30 UA Complete [Urinalysis and Microscopic] Stat 06/25/22 15:49 Covid-19 + FLU A/B + RSV - PCR Stat DILTIAZEM (Diltiazem 125 Mg/125 Ml-D5w) 125 mg in 125 mls @ 5 mls/hr IV TITRATE KATIE; Protocol Last Titration: 06/25/22 16:24 Dose: 10 mg/hr, 10 mls/hr Documented By: Admin: 06/25/22 15:43 Dose: 5 mg/hr, 5 mls/hr Documented By: MAVIS Vancomycin HCl/Dextrose (Vancomycin) 1,500 mg in 300 mls @ 200 mls/hr IV NOW ONE Stop: 06/25/22 18:52 Last Admin: 06/25/22 17:34 Dose: 200 mls/hr Documented By: MAVIS Ondansetron HCl (Ondansetron 4 Mg/2 Ml Inj) 4 mg IV Q6HR PRN PRN Reason: Nausea And Vomiting Discontinued Medications Acetaminophen (Acetaminophen 325 Mg Tablet) 975 mg PO NOW ONE Stop: 06/25/22 15:59 Last Admin: 06/25/22 16:10 Dose: 975 mg Documented By: MAVIS Diltiazem HCl (Diltiazem 5 Mg/Ml Sdv) 10 mg IV NOW ONE Stop: 06/25/22 15:28 Last Admin: 06/25/22 15:40 Dose: 10 mg Documented By: MAVIS Diltiazem HCl (Diltiazem 5 Mg/Ml Sdv) 10 mg IV NOW ONE Stop: 06/25/22 15:38 Last Admin: 06/25/22 15:41 Dose: 10 mg Documented By: MAVIS Sodium Chloride (Normal Saline 0.9%) 1,000 mls @ 1,000 mls/hr IV BOLUS ONE Stop: 06/25/22 16:29 Last Infusion: 06/25/22 16:51 Dose: 0 mls/hr Documented By: Admin: 06/25/22 15:45 Dose: 1,000 mls/hr Documented By: MAVIS Influenza Virus Vaccine (Influenza Hd Vaccine 0.7 Ml Syringe) 0.7 ml IM .ONCE ONE Stop: 06/25/22 18:41 Vital Signs Vital signs: Vital Signs - 8 hr 06/25/22 15:29 06/25/22 15:26 06/25/22 15:27 Temperature 101 F H Pulse Rate 209 H 172 H 172 H Respiratory Rate 30 H 51 H 53 H Blood Pressure 193/91 H Pulse Oximetry 99 95 93 Oxygen Delivery Method Room Air 06/25/22 15:27 06/25/22 15:30 06/25/22 15:30 Temperature Pulse Rate 135 H Respiratory Rate 51 H Blood Pressure 183/84 H 140/69 Pulse Oximetry 95 Oxygen Delivery Method 06/25/22 15:35 06/25/22 15:35 06/25/22 15:40 Temperature Pulse Rate 138 H 126 H Respiratory Rate 47 H Blood Pressure 172/92 H Pulse Oximetry 93 Oxygen Delivery Method 06/25/22 15:45 06/25/22 15:48 06/25/22 15:48 Temperature Pulse Rate 123 H 118 H Respiratory Rate 43 H 44 H Blood Pressure 125/63 Pulse Oximetry 93 94 Oxygen Delivery Method 06/25/22 15:50 06/25/22 15:50 06/25/22 15:55 Temperature Pulse Rate 116 H Respiratory Rate 34 H Blood Pressure 156/60 H 122/58 L Pulse Oximetry 94 Oxygen Delivery Method 06/25/22 15:55 06/25/22 16:00 06/25/22 16:00 Temperature Pulse Rate 108 H 105 H Respiratory Rate 40 H 39 H Blood Pressure 122/57 L Pulse Oximetry 93 Oxygen Delivery Method Room Air 06/25/22 16:05 06/25/22 16:05 06/25/22 16:10 Temperature Pulse Rate 106 H Respiratory Rate 38 H Blood Pressure 120/56 L 126/61 Pulse Oximetry 95 Oxygen Delivery Method 06/25/22 16:10 06/25/22 16:15 06/25/22 16:15 Temperature Pulse Rate 106 H 110 H Respiratory Rate 37 H 39 H Blood Pressure 127/57 L Pulse Oximetry 94 95 Oxygen Delivery Method 06/25/22 16:20 06/25/22 16:20 06/25/22 16:25 Temperature Pulse Rate 108 H Respiratory Rate 39 H Blood Pressure 119/66 130/56 L Pulse Oximetry 95 Oxygen Delivery Method 06/25/22 16:25 06/25/22 16:30 06/25/22 16:30 Temperature Pulse Rate 110 H 109 H Respiratory Rate 38 H 37 H Blood Pressure 126/58 L Pulse Oximetry 95 96 Oxygen Delivery Method 06/25/22 16:35 06/25/22 16:35 06/25/22 16:51 Temperature 101.1 F H Pulse Rate 112 H Respiratory Rate 37 H Blood Pressure 143/63 H Pulse Oximetry 96 Oxygen Delivery Method 06/25/22 16:40 06/25/22 16:40 06/25/22 16:45 Temperature Pulse Rate 109 H Respiratory Rate 35 H Blood Pressure 113/55 L 114/58 L Pulse Oximetry 96 Oxygen Delivery Method 06/25/22 16:45 06/25/22 16:50 06/25/22 16:50 Temperature Pulse Rate 115 H 111 H Respiratory Rate 35 H 36 H Blood Pressure 115/58 L Pulse Oximetry 97 98 Oxygen Delivery Method 06/25/22 16:55 06/25/22 16:55 06/25/22 17:00 Temperature Pulse Rate 116 H Respiratory Rate 31 H Blood Pressure 123/72 117/56 L Pulse Oximetry 94 Oxygen Delivery Method 06/25/22 17:00 06/25/22 17:05 06/25/22 17:05 Temperature Pulse Rate 104 H 108 H Respiratory Rate 34 H 34 H Blood Pressure 105/57 L Pulse Oximetry 95 95 Oxygen Delivery Method 06/25/22 17:10 06/25/22 17:10 06/25/22 17:15 Temperature Pulse Rate 106 H Respiratory Rate 35 H Blood Pressure 113/58 L 108/59 L Pulse Oximetry 93 Oxygen Delivery Method 06/25/22 17:15 06/25/22 17:20 06/25/22 17:20 Temperature Pulse Rate 100 H 104 H Respiratory Rate 31 H 32 H Blood Pressure 106/58 L Pulse Oximetry 93 93 Oxygen Delivery Method MDM - Arrhythmia/Palpitations Lab Data 06/25/22 15:25 06/25/22 15:25 Labs: Lab Results 06/25/22 06/25/22 06/25/22 Range/Units 15:25 15:25 15:25 WBC 15.9 H (4.5-11.0) X10^3/uL RBC 5.00 (4.5-5.9) X10^6/uL Hgb 14.6 (13.5-17.5) g/dL Hct 43.2 (41-53) % MCV 86.5 (80-100) fL MCH 29.3 (26-34) PG MCHC 33.8 (30-36) % RDW 15.3 H (11.6-14.8) % Plt Count 162 (150-400) X10^3/uL Neut % (Auto) 81.5 H (50-75) % Lymph % (Auto) 9.0 L (25-40) % [place] % (Auto) 9.2 (3-14) % Eos % (Auto) 0.0 L (2-4) % Baso % (Auto) 0.3 (0-2) % Neut # (Auto) 56215 H (6779-6271) /uL Lymph # (Auto) 1400 (7592-1088) /uL [place] # (Auto) 1500 H (0-900) /uL Eos # (Auto) 0 (0-450) /uL Baso # (Auto) 0 (0-100) /uL PT 19.2 H (10.1-12.7) SECONDS INR 1.7 H (0.9-1.3) APTT 33 (26-36) SECONDS Sodium 128 L (137-145) mmol/L Potassium 4.5 (3.4-5.1) mmol/L Chloride 96 L (98-107) mmol/L Carbon Dioxide 19 L (22-32) mmol/L BUN 24 H (9-20) mg/dL Creatinine 1.12 (0.66-1.25) mg/dL Estimated GFR > 60 (>60) mL/min BUN/Creatinine Ratio 21.4 (6-22) Glucose 252 H (80-110) mg/dL Calcium 8.9 (8.4-10.2) mg/dL Magnesium 1.2 L (1.6-2.3) mg/dL Total Bilirubin 1.2 (0.2-1.3) mg/dL AST 32 (17-59) IU/L ALT 29 (<50) IU/L Alkaline Phosphatase 97 (38-126) U/L Total Creatine Kinase 133 (55-170) U/L CK-MB (CK-2) 1.09 (<2.37) ng/mL CK-MB (CK-2) Rel Index 0.8 L (1.5-5.0) % Troponin I 0.016 (0.01-0.034) ng/mL NT-Pro-B Natriuret Pep (<125) pg/mL Total Protein 7.7 (6.3-8.2) g/dL Albumin 4.1 (3.5-5.0) g/dL Globulin 3.6 (1.7-4.1) g/dL Albumin/Globulin Ratio 1.1 (1.0-2.8) Lipase 367 H (23-300) U/L Procalcitonin (<0.5) ng/mL SARS-CoV-2 (PCR) (Negative) Influenza A (RT-PCR) (NEGATIVE) Influenza B (RT-PCR) (NEGATIVE) RSV (PCR) (Negative) 06/25/22 06/25/22 Range/Units 15:25 15:49 WBC (4.5-11.0) X10^3/uL RBC (4.5-5.9) X10^6/uL Hgb (13.5-17.5) g/dL Hct (41-53) % MCV (80-100) fL MCH (26-34) PG MCHC (30-36) % RDW (11.6-14.8) % Plt Count (150-400) X10^3/uL Neut % (Auto) (50-75) % Lymph % (Auto) (25-40) % [place] % (Auto) (3-14) % Eos % (Auto) (2-4) % Baso % (Auto) (0-2) % Neut # (Auto) (8020-7835) /uL Lymph # (Auto) (5920-3564) /uL [place] # (Auto) (0-900) /uL Eos # (Auto) (0-450) /uL Baso # (Auto) (0-100) /uL PT (10.1-12.7) SECONDS INR (0.9-1.3) APTT (26-36) SECONDS Sodium (137-145) mmol/L Potassium (3.4-5.1) mmol/L Chloride (98-107) mmol/L Carbon Dioxide (22-32) mmol/L BUN (9-20) mg/dL Creatinine (0.66-1.25) mg/dL Estimated GFR (>60) mL/min BUN/Creatinine Ratio (6-22) Glucose (80-110) mg/dL Calcium (8.4-10.2) mg/dL Magnesium (1.6-2.3) mg/dL Total Bilirubin (0.2-1.3) mg/dL AST (17-59) IU/L ALT (<50) IU/L Alkaline Phosphatase (38-126) U/L Total Creatine Kinase (55-170) U/L CK-MB (CK-2) (<2.37) ng/mL CK-MB (CK-2) Rel Index (1.5-5.0) % Troponin I (0.01-0.034) ng/mL NT-Pro-B Natriuret Pep 2810 H (<125) pg/mL Total Protein (6.3-8.2) g/dL Albumin (3.5-5.0) g/dL Globulin (1.7-4.1) g/dL Albumin/Globulin Ratio (1.0-2.8) Lipase (23-300) U/L Procalcitonin 0.50 (<0.5) ng/mL SARS-CoV-2 (PCR) Negative (Negative) Influenza A (RT-PCR) Flu a negative (NEGATIVE) Influenza B (RT-PCR) Flu b negative (NEGATIVE) RSV (PCR) Negative (Negative) Imaging Data Chest x-ray: Radiologist's Impresson: [address] [address] XRay Report Signed Patient: Gorge Fuller MR#: [id number] : 1955 Acct:[id number] Age/Sex: 67 / M Date of Service: 06/25/22 Loc: ED Accession Number: [id number] ?? Procedure: XR chest 1V Ordering Provider: Flakita Alex D.O. PROCEDURE:? XR CHEST 1V ? INDICATIONS:? chest pain ? TECHNIQUE:? One view of the chest was acquired.? ? COMPARISON:? [facility], CR, XR CHEST 1V, 05/29/2022, 16:16. ? FINDINGS:? ? Surgical changes and devices:? None.? ? Lungs and pleura:? Mild pulmonary vascular congestion is seen.? No definite focal infiltrate.? No pleural effusions or pneumothorax.? ? Mediastinum:? Mediastinal contours appear normal.? Heart size is enlarged.? ? Bones and chest wall:? No suspicious bony lesions.? Overlying soft tissues appear unremarkable.? ? IMPRESSION:? Mild pulmonary vascular congestion.? No focal infiltrate, pleural effusion or pneumothorax. ? ? Dictated by: Valdo Mccallum M.D. on 06/25/2022 at 16:03 ? ? Approved by: Valdo Mccallum M.D. on 06/25/2022 at 16:03?? ECG Data Attestation: I personally reviewed and interpreted this ECG as follows: Prior ECG tracings: available for review Interpretation: AFib with RVR rate of 169 QRS 82 QTC 449. No clear acute ST elevation. Patient does have some depression in 1 and aVL. Patient has prior from 05/28/[address] segments that time his rate was 100 but was in AFib. [facility] Narrative Medical decision making narrative: This is a 67-year-old male who presents with AFib RVR but is also febrile and had several days of fever. Suspect his AFib RVR is a response to fever and infection. Patient denies other symptoms currently he is diaphoretic but has a temperature of 101? F as well. Was given Tylenol, IV diltiazem with some improvement in rate down to 120s with a systolic pressure of 170s, was given additional 10 mg dose and plan for drip. Patient was also given fluids size suspect sepsis has part of his current problems, patient is currently on 10 mics his drip was bumped up from 5 mics for his diltiazem drip. Heart rate has been more consistently 115th 290s, his blood pressure has tolerated this well. He does have a leukocytosis he is febrile was given Tylenol for his fever he has a leftward shift, INR is elevated 1.7 so it likely is taking his anticoagulation currently but has been only 3 weeks since he was discharged so he is not fully can anticoagulated for cardioversion. Sodium is 128 chloride 96 with a CO2 of 19 creatinine 1.12 but appears similar to his prior to beginning of the month glucose is 250 to come Mag slightly low at 1.2 with a negative troponin and BNP of 2800 lipase 367 pro callus 0.5. Patient has not given a urine sample yet, COVID/RSV/influenza swab is negative. Lactate is still pending we did have to call lab and they are currently running it. Chest x-ray does not show clear source of infection exam does not give me a clear source. I spoke with Dr. Mcgrath who accepts for admission for AFib RVR with suspected possible sepsis but no clear source of infection patient does meet SIRS criteria. Patient was given a L bolus but discussed I did not give a 30 cc/kilos as he is higher risk for fluid overload, patient had an EF on his last admission a month ago that was 35-40%. Patient on recheck appears improved. Heart rates improved blood pressures intermittently low, he states he feels much better he is no longer diaphoretic he is able to tell that he did note his left leg looks kind of red and the toes. And when I evaluate he definitely has erythema and warmth compared to the right leg likely has a cellulitis as his source. Patient was covered initiating with vancomycin. Called back down to lab, lactate still pending at 1845. Lab released is 3.2 while on the phone. Asked lab to draw reflex on patient as he is now upstairs. Critical Care Time Critical Care Time Critical Care Time: Yes Total Critical Care Time: 40 Attestation: The high probability of a clinically significant, sudden or life threatening deterioration of the [cardiac, resp] system(s) required my full and direct attention, intervention and personal management. The aggregate critical care time was [] minutes. This time is in addition to time spent performing reported procedures but includes the following: [x] Data Review and interpretation [x] Patient assessment and monitoring of vital signs [x] Documentation [x] Medication orders and management Discharge Plan Departure Patient Disposition: Admitted As Inpatient Clinical Impression: Atrial fibrillation with rapid ventricular response, Sepsis, Cellulitis of left leg Admit Date/Time: 06/25/22 17:20 Admit Provider: Joy Puentes
[2022-06-25 15:37] LABS: Add Manual Diff / Slide Review NO; Basophils Absolute Auto 0 /uL (0-100); Basophils Percent Auto 0.3 % (0-2); Eosinophils Absolute Auto 0 /uL (0-450); Hematocrit 43.2 % (41-53); Hemoglobin 14.6 g/dL (13.5-17.5); Lymphocytes Absolute Auto 1400 /uL (1100-4500); Mean Corpuscular HGB Conc 33.8 % (30-36); Mean Corpuscular Hemoglobin 29.3 PG (26-34); Mean Corpuscular Volume 86.5 fL (80-100); Monocytes Absolute Auto 1500 /uL (0-900); Monocytes Percent Auto 9.2 % (3-14); Neutrophils Absolute Auto 13000 /uL (1500-7000); Neutrophils Percent Auto 81.5 % (50-75); Platelet Count 162 X10^3/uL (150-400); Red Cell Distribution Width 15.3 % (11.6-14.8); White Blood Cell Count 15.9 X10^3/uL (4.5-11.0)
[2022-06-25] MEDS: dilTIAZem 5 MG/ML SDV 10 MG IV ×2 (15:40→15:41)
[2022-06-25] MEDS: DILTIAZEM 125 MG/125 ML PIGGYBACK IV (15:43)
[2022-06-25 15:44] LABS: INR 1.7 (0.9-1.3); Prothrombin Time 19.2 SECONDS (10.1-12.7)
[2022-06-25] MEDS: SODIUM CHLORIDE 0.9% 1,000 ML 1000 ML IV ×2 (15:45→20:57)
[2022-06-25 15:47] LABS: PTT Partial Thromboplastin Tim 33 SECONDS (26-36)
[2022-06-25 15:48] LABS: Alanine Aminotransferase 29 IU/L (<50); Albumin 4.1 g/dL (3.5-5.0); Albumin Globulin Ratio 1.1 (1.0-2.8); Alkaline Phosphatase 97 U/L (38-126); Aspartate Aminotransferase 32 IU/L (17-59); BUN Creatinine Ratio 21.4 (6-22); Bilirubin Total 1.2 mg/dL (0.2-1.3); Blood Urea Nitrogen 24 mg/dL (9-20); Calcium 8.9 mg/dL (8.4-10.2); Carbon Dioxide 19 mmol/L (22-32); Chloride 96 mmol/L (98-107); Creatine Kinase 133 U/L (55-170); Estimated Glomerular Filt Rate > 60 mL/min (>60); Globulin 3.6 g/dL (1.7-4.1); Glucose 252 mg/dL (80-110); HEMOLYSIS < 15 (0-50); Lipase 367 U/L (23-300); Magnesium 1.2 mg/dL (1.6-2.3); Potassium 4.5 mmol/L (3.4-5.1); Sodium 128 mmol/L (137-145); Total Protein 7.7 g/dL (6.3-8.2)
[2022-06-25 16:00] LABS: Troponin I 0.016 ng/mL (0.01-0.034)
[2022-06-25 16:03] LABS: CKMB % Relative Index 0.8 % (1.5-5.0); Creatine Kinase MB 1.09 ng/mL (<2.37)
[2022-06-25] MEDS: ACETAMINOPHEN 325 MG TABLET 975 MG PO (16:10)
--- NOTE | 2022-06-25 16:12 | PC.NURSE ---
Patient arrived to rm 5, pale, diaphoretic, lethargic and febrile. Assisted him to [facility] and connected him to bedside telemetry and noted afib with a rate between 180-200. Immediately initiated 2 large bore PIVs, performed EKG, and alerted Dr Alex. Patient continued to be diaphoretic and with intermittent ability to assist with own history but was AxOx4 with answers. Reports illness that started last week and progressed to weakness, diaphoresis, nausea/vomiting, and dry cough. Had been on the way to an appt when he started vomiting in car when brought him to ED. Patient received 20mg of Diltiazem which reduced his HR to 100's to 120's. At time of this note patient is no longer diaphoretic with HR at 92-122, reports not feeling much better but overall appears to have an improved condition. Provider made aware of patient's improved state and HR. Gave 975mg Tylenol for fever which patient tolerated well and is much more conversant compared to his ED arrival. Care is ongoing.
[2022-06-25 16:34] LABS: Influenza A - CEPHEID Flu A NEGATIVE (NEGATIVE); Influenza B - CEPHEID Flu B NEGATIVE (NEGATIVE); Respiratory Syncytial Virus Negative (Negative)
[2022-06-25 16:37] LABS: COVID-19 CEPHEID 4-PLEX PCR Negative (Negative)
[2022-06-25 16:49] LABS: NT-proBNP (BNP-Adult 18+) 2810 pg/mL (<125)
[2022-06-25] MEDS: VANCOMYCIN 1,500 MG/300 ML PIGGYBACK 200 MG IV (17:34)
[2022-06-25 18:37] LABS: Lactate (Lactic Acid) 3.2 mmol/L (0.7-2.1)
[2022-06-25 18:46] LABS: Reflexed Lactate in 2 Hours Y
[2022-06-25 19:33] LABS: MRSA (Nasal) PCR Not Detected (Not Detect)
--- NOTE | 2022-06-25 20:22 | DI.US.S_ITS ---
PROCEDURE: US ARTERIAL DUPLEX LE LT INDICATIONS: SEPESIS. DIABETES. CELLULITIS. TECHNIQUE: Color and pulse Doppler interrogation was performed of the left lower extremity arterial system, with image documentation. COMPARISON: None. FINDINGS: Common femoral artery: 143 cm/sec, with biphasic flow. Deep femoral artery: 71 cm/sec, with biphasic flow. Proximal superficial femoral artery: 122 cm/sec, with biphasic flow. Mid superficial femoral artery: 119 cm/sec, with biphasic flow. Distal superficial femoral artery: 114 cm/sec, with biphasic flow. Popliteal artery: 140 cm/sec, with monophasic flow. Posterior tibial artery: 86 cm/sec, with monophasic flow. Anterior tibial artery/dorsalis pedis: 59 cm/sec, with monophasic flow. Dorsalis pedis: 100.6 cm per sec, monophasic [place]-scale imaging description: Atherosclerotic irregularity IMPRESSION: Velocity and waveforms suggest peripheral vascular disease without focal occlusion or significant stenosis Approved by: Bernard Ambrose M.D. on 06/26/2022 at 9:59
--- NOTE | 2022-06-25 20:27 | P.HP_ITS ---
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 In ED was primary historian she is unsure if he is taking his medications regularly.? He was admitted for AFib RVR in May and was not taking medications regularly at that time.? Patient presents with 5 days of fevers generally feeling unwell he states his heart rate has been fast, fever x 5 days, patient is a poor historian but verbalizes that he may have had increased swelling redness and pain of the left lower extremity for the past week, nausea and vomiting on way to the hospital. Patient was sent to be extremely resistant to coming into the emergency department, is frequently noncompliant with medications, and does not follow with Cardiology. Patient states his primary care is through the [facility].? In the ED patient was afebrile temp 101?, hypertensive urgency BP 193/91, 183/84, tachycardic heart rates up to 209, tachypneic respiratory rates 30-50 in atrial fibrillation. Patient was given an initial dose of diltiazem and then placed on a Dilt drip. On admit patient denies chest pain, shortness in breath, headache, changes in vision, difficulty swallowing, speech impairment, weakness, numbness, tingling, difficulty with ambulation, recent falls, head injury, LOC, currently no fever, body aches, chills, cough, denies recent exposure to illness, abdominal pain, urinary incontinence/retention, dysuria, frequency, urgency, hematuria, bowel changes, constipation, incontinence, melena, rashes, recent changes to medication, illness, injury, or trauma. At the time of admit continued to have a low-grade fever 100.9, developed hypotension 102/59, 98/54, map 75, HR 86 Afib, RR 20, O2 saturation 94% on room air-patient is stable in no distress sleeping heavily. Currently diltiazem drip 2.5. VBG: PH 7.44, pCO2 30.5, PO2 34, bicarb 21, TCO2 21, O2 sat 69%, BE negative for, FiO2 21. WBC 15.9, newt 13,000, mono 1500 procalcitonin 0.5, initial lactate 3.2, repeat 1. Sodium 128, Cl 96, BUN 24, bicarb 19, glucose 252, Mag 1.2, PT 19.2, INR 1.7, lipase 367, BNP 2810, sofa score:2, anion gap negative, COVID influenza a/B/RSV are all negative. Chest x-ray mild pulmonary vascular congestion. I personally reviewed all imaging and EKG. EKG: AFib RVR rate of 169, negative acute ST changes, depression in lead 1 and aVL, similar in comparison to EKG from 05/28/2022, last echo 05/2022 EF 35-40%. Patient admitted to the ICU teleICU for atrial fibrillation with RVR, sepsis without shock secondary to left lower extremity cellulitis, hyponatremia Patient History Medical History Afib Diabetes Hyperlipidemia Hypertension Neuropathy of both feet Surgical History History of hernia repair History of neck surgery Family & Social History Family History Father Smoker Diabetes mellitus Heart attack Mother No significant medical problems Social History: household members spouse Prior Living Arrangements House Safety & Behavioral: Feels Safe in Current Yes Environment Been Physically Hurt or No Threatened By a Person Tobacco & Substance use: Smoking Status Never smoker alcohol intake never alcohol intake frequency other Substance Use Type does not use Meds Home Medications and Allergies Home Medications Medication Instructions Recorded Confirmed Type insulin glargine 100 unit/mL 12 unit SUBCUT BEDTIME 10/20/19 06/25/22 History subcutaneous solution (Lantus U-100 Insulin) metformin 500 mg tablet 500 mg PO BID 10/20/19 06/25/22 History rivaroxaban 20 mg tablet (Xarelto) 20 mg PO QPM 10/20/19 06/25/22 History lisinopril 5 mg tablet 5 mg PO DAILY 90 days #90 tabs 05/31/22 06/25/22 Rx metoprolol succinate 50 mg 50 mg PO BID 90 days #180 tabs 05/31/22 06/25/22 Rx tablet,extended release 24 hr Allergies Allergy/AdvReac Type Severity Reaction Status Date / Time piperacillin [From Zosyn] Allergy Severe Uticaria Verified 10/20/19 22:50 tazobactam [From Zosyn] Allergy Severe Uticaria Verified 10/20/19 22:50 Review of Systems Review of Systems Narrative: All 12 point systems reviewed with the patient and are negative except otherwise documented. Exam Vital Signs (past 8 hours): - 06/25/22 15:29 06/25/22 15:26 06/25/22 15:27 Temperature 101 F H Pulse Rate 209 H 172 H 172 H Respiratory Rate 30 H 51 H 53 H Blood Pressure 193/91 H Pulse Oximetry 99 95 93 Oxygen Delivery Method Room Air Oxygen Flow Rate 06/25/22 15:27 06/25/22 15:30 06/25/22 15:30 Temperature Pulse Rate 135 H Respiratory Rate 51 H Blood Pressure 183/84 H 140/69 Pulse Oximetry 95 Oxygen Delivery Method Oxygen Flow Rate 06/25/22 15:35 06/25/22 15:35 06/25/22 15:40 Temperature Pulse Rate 138 H 126 H Respiratory Rate 47 H Blood Pressure 172/92 H Pulse Oximetry 93 Oxygen Delivery Method Oxygen Flow Rate 06/25/22 15:45 06/25/22 15:48 06/25/22 15:48 Temperature Pulse Rate 123 H 118 H Respiratory Rate 43 H 44 H Blood Pressure 125/63 Pulse Oximetry 93 94 Oxygen Delivery Method Oxygen Flow Rate 06/25/22 15:50 06/25/22 15:50 06/25/22 15:55 Temperature Pulse Rate 116 H Respiratory Rate 34 H Blood Pressure 156/60 H 122/58 L Pulse Oximetry 94 Oxygen Delivery Method Oxygen Flow Rate 06/25/22 15:55 06/25/22 16:00 06/25/22 16:00 Temperature Pulse Rate 108 H 105 H Respiratory Rate 40 H 39 H Blood Pressure 122/57 L Pulse Oximetry 93 Oxygen Delivery Method Room Air Oxygen Flow Rate 06/25/22 16:05 06/25/22 16:05 06/25/22 16:10 Temperature Pulse Rate 106 H Respiratory Rate 38 H Blood Pressure 120/56 L 126/61 Pulse Oximetry 95 Oxygen Delivery Method Oxygen Flow Rate 06/25/22 16:10 06/25/22 16:15 06/25/22 16:15 Temperature Pulse Rate 106 H 110 H Respiratory Rate 37 H 39 H Blood Pressure 127/57 L Pulse Oximetry 94 95 Oxygen Delivery Method Oxygen Flow Rate 06/25/22 16:20 06/25/22 16:20 06/25/22 16:25 Temperature Pulse Rate 108 H Respiratory Rate 39 H Blood Pressure 119/66 130/56 L Pulse Oximetry 95 Oxygen Delivery Method Oxygen Flow Rate 06/25/22 16:25 06/25/22 16:30 06/25/22 16:30 Temperature Pulse Rate 110 H 109 H Respiratory Rate 38 H 37 H Blood Pressure 126/58 L Pulse Oximetry 95 96 Oxygen Delivery Method Oxygen Flow Rate 06/25/22 16:35 06/25/22 16:35 06/25/22 16:51 Temperature 101.1 F H Pulse Rate 112 H Respiratory Rate 37 H Blood Pressure 143/63 H Pulse Oximetry 96 Oxygen Delivery Method Oxygen Flow Rate 06/25/22 16:40 06/25/22 16:40 06/25/22 16:45 Temperature Pulse Rate 109 H Respiratory Rate 35 H Blood Pressure 113/55 L 114/58 L Pulse Oximetry 96 Oxygen Delivery Method Oxygen Flow Rate 06/25/22 16:45 06/25/22 16:50 06/25/22 16:50 Temperature Pulse Rate 115 H 111 H Respiratory Rate 35 H 36 H Blood Pressure 115/58 L Pulse Oximetry 97 98 Oxygen Delivery Method Oxygen Flow Rate 06/25/22 16:55 06/25/22 16:55 06/25/22 17:00 Temperature Pulse Rate 116 H Respiratory Rate 31 H Blood Pressure 123/72 117/56 L Pulse Oximetry 94 Oxygen Delivery Method Oxygen Flow Rate 06/25/22 17:00 06/25/22 17:05 06/25/22 17:05 Temperature Pulse Rate 104 H 108 H Respiratory Rate 34 H 34 H Blood Pressure 105/57 L Pulse Oximetry 95 95 Oxygen Delivery Method Oxygen Flow Rate 06/25/22 17:10 06/25/22 17:10 06/25/22 17:15 Temperature Pulse Rate 106 H Respiratory Rate 35 H Blood Pressure 113/58 L 108/59 L Pulse Oximetry 93 Oxygen Delivery Method Oxygen Flow Rate 06/25/22 17:15 06/25/22 17:20 06/25/22 17:20 Temperature Pulse Rate 100 H 104 H Respiratory Rate 31 H 32 H Blood Pressure 106/58 L Pulse Oximetry 93 93 Oxygen Delivery Method Oxygen Flow Rate 06/25/22 17:25 06/25/22 17:25 06/25/22 17:30 Temperature Pulse Rate 101 H Respiratory Rate 30 H Blood Pressure 114/56 L 96/54 L Pulse Oximetry 93 Oxygen Delivery Method Oxygen Flow Rate 06/25/22 17:30 06/25/22 17:35 06/25/22 17:35 Temperature Pulse Rate 107 H 107 H Respiratory Rate 35 H 33 H Blood Pressure 125/58 L Pulse Oximetry 94 94 Oxygen Delivery Method Oxygen Flow Rate 06/25/22 17:40 06/25/22 17:40 06/25/22 17:45 Temperature Pulse Rate 104 H Respiratory Rate 32 H Blood Pressure 108/58 L 104/54 L Pulse Oximetry 94 Oxygen Delivery Method Oxygen Flow Rate 06/25/22 17:45 06/25/22 17:50 06/25/22 17:50 Temperature Pulse Rate 102 H 105 H Respiratory Rate 36 H 35 H Blood Pressure 107/53 L Pulse Oximetry 94 95 Oxygen Delivery Method Oxygen Flow Rate 06/25/22 18:26 06/25/22 17:55 06/25/22 17:55 Temperature Pulse Rate 102 H Respiratory Rate 36 H Blood Pressure 98/54 L Pulse Oximetry 95 Oxygen Delivery Method Room Air Oxygen Flow Rate 06/25/22 18:11 06/25/22 18:15 06/25/22 18:20 Temperature Pulse Rate 92 H 100 H 95 H Respiratory Rate 31 H 34 H Blood Pressure Pulse Oximetry 95 91 Oxygen Delivery Method Oxygen Flow Rate 06/25/22 18:25 06/25/22 18:30 06/25/22 18:35 Temperature Pulse Rate 93 H 89 90 Respiratory Rate 35 H 31 H 37 H Blood Pressure Pulse Oximetry 94 95 95 Oxygen Delivery Method Oxygen Flow Rate 06/25/22 18:40 06/25/22 18:45 06/25/22 18:50 Temperature Pulse Rate 95 H 86 86 Respiratory Rate 34 H 32 H 28 H Blood Pressure Pulse Oximetry 95 94 94 Oxygen Delivery Method Oxygen Flow Rate 06/25/22 18:07 Temperature 100.9 F H Pulse Rate 112 H Respiratory Rate 31 H Blood Pressure 102/59 L Pulse Oximetry 99 Oxygen Delivery Method Oxygen Flow Rate 0 Oxygen Delivery Method Room Air Oxygen Flow Rate 0 Narrative Exam Narrative: General: Patient is a well-developed, well-nourished in no distress at this time. HEENT: Normocephalic, atraumatic, extraocular muscles intact, oral pharynx is clear and mucous membranes are moist. Neck is supple and symmetric, trachea is midline, no adenopathy, no thyroid enlargement, nontender, no masses palpated. Negative for JVD Chest: Normal AP diameter and contour without kyphoscoliosis, no nasal flaring, retractions, or tachypneic labored breathing Lungs: Auscultation of all lung raines are clear without adventitious sounds, wheezes, rhonchi, or rales. Cardio: regular rate and rhythm without murmur, rubs, or gallops, no carotid bruit, no cardiac pulsations present. Abdomen: Soft nontender, negative for organomegaly, or masses. Bowel sounds are present in all 4 quadrants without guarding or rebound, no CVA tenderness. Musculoskeletal: Bilateral lower extremity edema, left greater than right, left erythematous warm to touch, cellulitis radial and pedal pulses are normal. Skin: Warm dry and intact without rashes, ulcerations or petechiae. Neuro: Alert and orientated x3, moves all extremities, sensation to touch intact, no gross deficits noted of cranial nerves. Psych: Patient has a well-kept appearance, appropriate affect, mental status attitude thought context and judgment are appropriate for age. Objective Labs 06/25/22 15:25 06/25/22 15:25 Labs: Laboratory Results - last 24 hr 06/25/22 06/25/22 06/25/22 15:25 15:25 15:25 WBC 15.9 H RBC 5.00 Hgb 14.6 Hct 43.2 MCV 86.5 MCH 29.3 MCHC 33.8 RDW 15.3 H Plt Count 162 Neut % (Auto) 81.5 H Lymph % (Auto) 9.0 L [place] % (Auto) 9.2 Eos % (Auto) 0.0 L Baso % (Auto) 0.3 Neut # (Auto) 85039 H Lymph # (Auto) 1400 [place] # (Auto) 1500 H Eos # (Auto) 0 Baso # (Auto) 0 PT 19.2 H INR 1.7 H APTT 33 Sodium 128 L Potassium 4.5 Chloride 96 L Carbon Dioxide 19 L BUN 24 H Creatinine 1.12 Estimated GFR > 60 BUN/Creatinine Ratio 21.4 Glucose 252 H Lactate Calcium 8.9 Magnesium 1.2 L Total Bilirubin 1.2 AST 32 ALT 29 Alkaline Phosphatase 97 Total Creatine Kinase 133 CK-MB (CK-2) 1.09 CK-MB (CK-2) Rel Index 0.8 L Troponin I 0.016 NT-Pro-B Natriuret Pep Total Protein 7.7 Albumin 4.1 Globulin 3.6 Albumin/Globulin Ratio 1.1 Lipase 367 H Procalcitonin Nasal Screen MRSA (PCR) SARS-CoV-2 (PCR) Influenza A (RT-PCR) Influenza B (RT-PCR) RSV (PCR) 06/25/22 06/25/22 06/25/22 15:25 15:25 15:49 WBC RBC Hgb Hct MCV MCH MCHC RDW Plt Count Neut % (Auto) Lymph % (Auto) [place] % (Auto) Eos % (Auto) Baso % (Auto) Neut # (Auto) Lymph # (Auto) [place] # (Auto) Eos # (Auto) Baso # (Auto) PT INR APTT Sodium Potassium Chloride Carbon Dioxide BUN Creatinine Estimated GFR BUN/Creatinine Ratio Glucose Lactate 3.2 H Calcium Magnesium Total Bilirubin AST ALT Alkaline Phosphatase Total Creatine Kinase CK-MB (CK-2) CK-MB (CK-2) Rel Index Troponin I NT-Pro-B Natriuret Pep 2810 H Total Protein Albumin Globulin Albumin/Globulin Ratio Lipase Procalcitonin 0.50 Nasal Screen MRSA (PCR) SARS-CoV-2 (PCR) Negative Influenza A (RT-PCR) Flu a negative Influenza B (RT-PCR) Flu b negative RSV (PCR) Negative 06/25/22 06/25/22 18:15 19:10 WBC RBC Hgb Hct MCV MCH MCHC RDW Plt Count Neut % (Auto) Lymph % (Auto) [place] % (Auto) Eos % (Auto) Baso % (Auto) Neut # (Auto) Lymph # (Auto) [place] # (Auto) Eos # (Auto) Baso # (Auto) PT INR APTT Sodium Potassium Chloride Carbon Dioxide BUN Creatinine Estimated GFR BUN/Creatinine Ratio Glucose Lactate 1.0 Calcium Magnesium Total Bilirubin AST ALT Alkaline Phosphatase Total Creatine Kinase CK-MB (CK-2) CK-MB (CK-2) Rel Index Troponin I NT-Pro-B Natriuret Pep Total Protein Albumin Globulin Albumin/Globulin Ratio Lipase Procalcitonin Nasal Screen MRSA (PCR) Not detected SARS-CoV-2 (PCR) Influenza A (RT-PCR) Influenza B (RT-PCR) RSV (PCR) Assessment & Plan Assessment & Plan narrative: Gorge Fuller is a 67yo M with PMH of A-fib on xeralto, DM2 with peripheral neuropathy, HTN, HLD, history of osteomyelitis, MSSA, 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 ? Patient presents with 5 days of fevers generally feeling unwell he states his heart rate has been fast, fever x 5 days, patient is a poor historian but verbalizes that he may have had increased swelling redness and pain of the left lower extremity for the past week, nausea and vomiting on way to the hospital. Patient admitted to the ICU teleICU for atrial fibrillation with RVR, sepsis without shock secondary to left lower extremity cellulitis, hyponatremia 1. Atrial fibrillation with RVR, acute on chronic, present on admission- currently rate controlled -In ED Hr up to 209 -Admit 110/55, MAP 81, Afib, RR 20, O2 saturation 94% on room air -I personally reviewed all imaging and EKG. EKG: AFib RVR rate of 169, neg ative acute ST changes, depression in lead 1 and aVL, similar in comparison to EKG from 05/28/2022, -last echo 05/2022 EF 35-40%. -patient was placed on diltiazem drip in the ED-currently on 2.5 -patient admitted to the ICU/tele inspector purchased parts -will leave patient on drip overnight for rest -restart metoprolol 50 mg b.i.d in am -patient has been noncompliant with Cardiology follow-up and medications -continue Xarelto -Mag 1.2 ordered 2 g rider 2. Sepsis without septic shock, metabolic, likely secondary to left leg cellulitis, acute, present on admission- stable -SOFA:2, febrile, tachycardic, tachypneic -mild hyponatremia sodium 128-NS at 150 cc/HR -patient has diabetes with a history of osteomyelitis, MSSA resulting in right 3rd toe amputation in 2019 -VBG: PH 7.44, pCO2 30.5, PO2 34, bicarb 21, TCO2 21, O2 sat 69%, BE negative for, FiO2 21. -WBC 15.9, newt 13,000, mono 1500 procalcitonin 0.5, initial lactate 3.2, repeat 1. -Sodium 128, Cl 96, BUN 24, bicarb 19, glucose 252, Mag 1.2, PT 19.2, INR 1.7, lipase 367, -ED :temp 101?, BP 193/91, 183/84, HR to 209, RR 30-50. -admit continued to have a low-grade fever 100.9, developed hypotension 102/59, 98/54, map 75, HR 86 Afib, RR 20, O2 saturation 94% -Chest x-ray mild pulmonary vascular congestion. -respiratory panel negative -ordered blood cultures, wound, urine culture, CRP, ESR, -left lower extremity ultrasound -patient received vancomycin in ED -1 L fluid bolus given on admit, followed by NS at 150 cc/hour -patient had a history of urticaria with a previous dosage of Zosyn in 2019, placed patient on Zosyn with Benadryl to be given prior to dosage patient has tolerated well and not had any reaction. -based on results of trending inflammatory markers, response to IV Zosyn and ultrasound imaging may consider adding vancomycin, General surgery consult if needed 3. Essential hypertension, with hypertensive urgency, acute on chronic, present on admission-resolved -ED : BP 193/91, 183/84, -admit hypotension 102/59, 98/54, map 75 -holding patient's metoprolol and lisinopril restarted morning -I personally reviewed all imaging and EKG. EKG: AFib RVR rate of 169, negative acute ST changes, depression in lead 1 and aVL, similar in comparison to EKG from 05/28/2022, last echo 05/2022 EF 35-40%. 4. Type 2 diabetes insulin-dependent, with hyperglycemia, acute on chronic, with peripheral neuropathy, chronic, present on admission-uncontrolled -patient admitted under diabetic protocol -blood sugar checks a.c. HS, with sliding-scale coverage, continue Lantus -A1c has been ordered, A1c machine has been down -Sodium 128, Cl 96, BUN 24, bicarb 19, glucose 252 5. Overweight, mild, acute on chronic, present on admission -BMI 30.8 -dietary consult ordered regarding nutritional education and information for tary, lifestyle, exercise, and weight changes. -the patient is at much higher risk for medical and surgical complications due to obesity as it relates to chronic illnesses:, and acute illness. The pa tient's obesity increases the difficulty and complexity of medical and/or surgical interventions, management and increases the chances of poor outcome such as morbidity and mortality as well as impaired wound healing. Code status is full code. COVID negative. DVT prophylaxis with Xarelto. Proxy is Jess Fuller. Disposition: Patient admitted to the ICU expected length of stay greater than 2 midnights, will require fluid resuscitation, IV antibiotics evaluation of left lower extremity cellulitis possibility of osteomyelitis, and atrial fibrillation rate control with oral medications. I have utilized all available immediate resources to obtain, update, or review the patient's current medications. I confirmed that the patient's advanced care plan is present, Code status is documented and/or surrogate decision maker is listed in the patient's medical record. I have personally reviewed patient's chart notes from PCP, specialists, diagnostic imaging, and laboratory results. Quality VTE Deep Vein Thrombosis/Pulmonary Embolism Present on Admission: No
[2022-06-25] MEDS: diphenhydrAMINE 25 MG TABLET PO (20:50)
[2022-06-25] MEDS: MAGNESIUM SULFATE 2 GM/50 ML PIGGYBACK IV (21:01)
[2022-06-25 21:07] LABS: PCO2 VBG 30.5 mmHg (45-50); pH VBG 7.44 (7.33-7.43)
[2022-06-25 21:08] LABS: Fractionated Inspired Oxygen 21; HCO3 VBG 21 mmol/L (24-28); Oxygen Saturation VBG 69 % (70-75); PO2 VBG 34 mmHg (35-45); Total CO2 VBG 21 mmol/L (24-29)
[2022-06-25 21:15] LABS: Ethanol (ETOH) < 10 mg/dL
[2022-06-25] MEDS: INSULIN LISPRO 100 UNIT/ML 3ML VIAL SUBCUT (21:36)
[2022-06-25] MEDS: INSULIN GLARGINE 100 UNIT/ML 3ML PEN 12 UNIT SUBCUT (21:37)
[2022-06-25] MEDS: PIPERACILLIN/TAZO 4.5 GM in SODIUM CHLORIDE 0.9% 100 ML IV (21:44)
[2022-06-25 21:48] LABS: Thyroid Stimulating Hormone 1.23 uIU/mL (0.47-4.68)
[2022-06-25] MEDS: SODIUM CHLORIDE 0.9% 1,000 ML 150 ML IV (22:04)
--- NOTE | 2022-06-25 22:12 | PC.NURSE ---
Critical troponin 0.251 reported to tele-ICU, continue to trend troponin per order.
[2022-06-25 22:43] LABS: Adenovirus Not Detected (Not Detect); B. parapertussis Not Detected (Not Detecte); Bordetella pertussis Not Detected (Not Detecte); Chlamydophila pneumoniae Not Detected (Not Detect); Coronavirus 229E Not Detected (Not Detect); Coronavirus HKU1 Not Detected (Not Detect); Coronavirus NL 63 Not Detected (Not Detect); Coronavirus OC43 Not Detected (Not Detect); Human Metapneumovirus Not Detected (Not Detect); Human Rhinovirus/Enterovirus Not Detected (Not Detect); Influenza A Not Detected (Not Detect); Influenza B Not Detected (Not Detect); Mycoplasma pneumoniae Not Detected (Not Detect); Parainfluenza Virus 1 Not Detected (Not Detect); Parainfluenza Virus 2 Not Detected (Not Detect); Parainfluenza Virus 3 Not Detected (Not Detect); Parainfluenza Virus 4 Not Detected (Not Detect); Respiratory Syncytial Virus Not Detected (Not Detect); SARS- CoV-2 Not Detected (Not Detecte)
[2022-06-26] VITALS (65 sets, daily range): BP systolic 110–152; BP diastolic 55–83; PULSE 86–127; RESP 19–38; TEMP 36.4–37.4; O2SAT 94–97
[2022-06-26] MEDS: diphenhydrAMINE 25 MG TABLET PO ×3 (01:12→16:52)
[2022-06-26] MEDS: PIPERACILLIN/TAZO 3.375 GM in SODIUM CHLORIDE 0.9% 100 ML IV ×3 (01:34→17:21)
[2022-06-26 02:35] LABS: INR 1.4 (0.9-1.3); Prothrombin Time 16.4 SECONDS (10.1-12.7)
[2022-06-26 02:42] LABS: Lactate (Lactic Acid) 1.4 mmol/L (0.7-2.1)
[2022-06-26 02:43] LABS: Magnesium 1.9 mg/dL (1.6-2.3)
[2022-06-26 02:53] LABS: NT-proBNP (BNP-Adult 18+) 3710 pg/mL (<125)
[2022-06-26 02:58] LABS: C-Reactive Protein Quant 12.9 mg/dL (<1.0)
[2022-06-26 02:59] LABS: Troponin I 0.248 ng/mL (0.01-0.034)
--- NOTE | 2022-06-26 03:13 | PC.NURSE ---
ICU teleintensivist notified of troponin 0.248, no new orders to continue trending troponin.
[2022-06-26 04:01] LABS: Erythrocyte Sedimentation Rate 41 MM/HR (0-15)
[2022-06-26 04:45] LABS: Free T4, Direct Thyroxine 1.26 ng/dL (0.78-2.19)
[2022-06-26] MEDS: SODIUM CHLORIDE 0.9% 1,000 ML 75 ML IV (06:07)
[2022-06-26 06:18] LABS: Add Manual Diff / Slide Review NO; Basophils Absolute Auto 0 /uL (0-100); Basophils Percent Auto 0.2 % (0-2); Eosinophils Absolute Auto 0 /uL (0-450); Eosinophils Percent Auto 0.1 % (2-4); Hematocrit 39.8 % (41-53); Hemoglobin 13.5 g/dL (13.5-17.5); Lymphocytes Absolute Auto 600 /uL (1100-4500); Lymphocytes Percent Auto 6.1 % (25-40); Mean Corpuscular HGB Conc 33.9 % (30-36); Mean Corpuscular Hemoglobin 29.5 PG (26-34); Mean Corpuscular Volume 86.9 fL (80-100); Monocytes Absolute Auto 800 /uL (0-900); Monocytes Percent Auto 8.2 % (3-14); Neutrophils Absolute Auto 8500 /uL (1500-7000); Neutrophils Percent Auto 85.4 % (50-75); Platelet Count 121 X10^3/uL (150-400); Red Blood Cell Count 4.58 X10^6/uL (4.5-5.9); Red Cell Distribution Width 15.3 % (11.6-14.8); White Blood Cell Count 9.9 X10^3/uL (4.5-11.0)
[2022-06-26 06:23] LABS: Alanine Aminotransferase 24 IU/L (<50); Albumin 3.1 g/dL (3.5-5.0); Albumin Globulin Ratio 1.1 (1.0-2.8); Alkaline Phosphatase 67 U/L (38-126); BUN Creatinine Ratio 22.2 (6-22); Bilirubin Total 1.2 mg/dL (0.2-1.3); Blood Urea Nitrogen 22 mg/dL (9-20); Calcium 7.8 mg/dL (8.4-10.2); Carbon Dioxide 20 mmol/L (22-32); Chloride 99 mmol/L (98-107); Estimated Glomerular Filt Rate > 60 mL/min (>60); Globulin 2.9 g/dL (1.7-4.1); Glucose 156 mg/dL (80-110); Sodium 130 mmol/L (137-145)
--- NOTE | 2022-06-26 06:34 | DI.RAD.S_ITS ---
PROCEDURE: XR ANKLE LT 2V INDICATIONS: eval for osteo TECHNIQUE: 2 views of the ankle were acquired. COMPARISON: None. FINDINGS: Bones: No fractures or dislocations. Ankle mortise is normally aligned. No bony erosive changes. No suspicious bony lesions. Well-defined plantar and dorsal calcaneal enthesophytes are seen. Soft tissues: Diffuse ankle soft tissue swelling is noted. No tibiotalar joint effusion. Achilles tendon appears normal. IMPRESSION: No acute ankle fracture or dislocation. No radiographic evidence of osteomyelitis. Calcaneal enthesophytes. Diffuse ankle soft tissue swelling. Dictated by: Valdo Mccallum M.D. on 06/26/2022 at 8:36 Approved by: Valdo Mccallum M.D. on 06/26/2022 at 8:41
--- NOTE | 2022-06-26 06:35 | DI.RAD.S_ITS ---
PROCEDURE: XR FOOT LT 2V INDICATIONS: eval for osteo TECHNIQUE: 2 views of the foot were acquired. COMPARISON: [facility], CR, XR FOOT LT MIN 3V, 03/14/2020, 10:09. FINDINGS: Bones: No acute fractu or dislocation. Chronic appearing deformity involving 4th distal phalangeal tuft is seen. No definite bony erosive changes are noted. Osteoarthritic changes are noted throughout left foot. Well-defined plantar and dorsal calcaneal enthesophytes are seen. No suspicious bony lesions. Soft tissues: No tibiotalar joint effusion. Achilles tendon appears normal. IMPRESSION: Left foot osteoarthritis. No acute fracture or dislocation. No definite radiographic evidence of osteomyelitis. Dictated by: Valdo Mccallum M.D. on 06/26/2022 at 8:41 Approved by: Valdo Mccallum M.D. on 06/26/2022 at 8:43
--- NOTE | 2022-06-26 06:35 | DI.RAD.S_ITS ---
PROCEDURE: XR TIBIA FIBULA LT 2V INDICATIONS: eval for osteo TECHNIQUE: 2 views of the tibia and fibula were acquired. COMPARISON: None. FINDINGS: Bones: No fractures or dislocations. No suspicious bony lesions. Soft tissues: No suspicious soft tissue calcifications or masses. Ankle soft tissue swelling is seen. IMPRESSION: No lower leg fracture or dislocation. No radiographic evidence of osteomyelitis. Dictated by: Valdo Mccallum M.D. on 06/26/2022 at 8:43 Approved by: Valdo Mccallum M.D. on 06/26/2022 at 8:53
--- NOTE | 2022-06-26 06:40 | P.TELICUCN_ITS ---
History of Present Illness Consult details IF CAMERA ACTIVATED, patient seen via real-time interactive audiovisual communication: Camera activated Chief complaint: vomiting/shaking/fever Consent obtained for tele-corn popper care: Yes Patient Location: ICU Provider location (State): [place] Other participants/roles: RN Narrative: 67M with a PMH of DM (c/b Neuropathy and R 3rd toe Osteo s/p amputation), HTN, HLD and Afib with RVR (on Xarelto) who was admitted with Afib/RVR and c/f LLE infection. At home was noted to have several days of fevers as well as LLE redness/swelling, no pain. Patient required initiation of Diltiazem drip for HR control, now in the 80s with occasional episodes up to the 120s/130s. Started on Zosyn, cultures sent. Patient also notes a scratchy throat for 1 week but reports no pain, able to swallow liquids/solids. TTE from last admission with EF 35-40%, global hypokinesis of LV. CXR on admission with e/o pulmonary edema. [facility] Medical History (Updated 06/26/22 @ 06:48 by Magnolia Cr) Afib Diabetes Hyperlipidemia Hypertension Neuropathy of both feet Surgical History History of hernia repair History of neck surgery Family History Father Smoker Diabetes mellitus Heart attack Mother No significant medical problems Social History household members: spouse occupational status: employed Smoking Status: Never smoker alcohol intake: never Current Medications Current Medications Medications: Home Medications insulin glargine 100 unit/mL subcutaneous solution (Lantus U-100 Insulin) 12 unit SUBCUT BEDTIME 10/20/19 [History Confirmed 06/25/22] metformin 500 mg tablet 500 mg PO BID 10/20/19 [History Confirmed 06/25/22] rivaroxaban 20 mg tablet (Xarelto) 20 mg PO QPM 10/20/19 [History Confirmed 06/25/22] lisinopril 5 mg tablet 5 mg PO DAILY 90 days #90 tabs 05/31/22 [Rx Confirmed 06/25/22] metoprolol succinate 50 mg tablet,extended release 24 hr 50 mg PO BID 90 days #180 tabs 05/31/22 [Rx Confirmed 06/25/22] Visit Medications (administered) Generic Name Dose Route Start Last Admin Trade Name Dandre PRN Reason Stop Dose Admin Diphenhydramine HCl 25 mg 06/25/22 20:24 06/26/22 01:12 Diphenhydramine 25 Mg Tablet PO 25 mg Q6HR PRN Administration Itching Piperacillin Sod/Tazobactam 100 mls @ 25 mls/hr 06/26/22 01:00 06/26/22 05:34 Sod 3.375 gm/ Sodium Chloride IV Infused Q8H KATIE Infusion Insulin Glargine 12 unit 06/25/22 21:00 06/25/22 21:37 Insulin Glargine 100 Unit/Ml 3ml Pen SUBCUT 12 unit 2100 KATIE Administration Insulin Human Lispro 0 unit 06/25/22 21:00 06/25/22 21:36 Insulin Lispro 100 Unit/Ml 3ml Vial SUBCUT 2 unit ACHS KATIE Administration Protocol Sennosides 17.2 mg 06/25/22 21:00 06/25/22 21:43 Sennosides 8.6 Mg Tablet PO Not Given BEDTIME KATIE Exam Vital Signs (past 8 hours): - 06/25/22 23:00 06/25/22 23:00 06/25/22 23:15 Temperature Pulse Rate 88 98 H Respiratory Rate 27 H 32 H Blood Pressure 118/62 Pulse Oximetry 97 97 Oxygen Delivery Method 06/25/22 23:30 06/25/22 23:30 06/26/22 00:00 Temperature Pulse Rate 92 H 89 Respiratory Rate 27 H 26 H Blood Pressure 108/68 Pulse Oximetry 96 96 Oxygen Delivery Method 06/26/22 00:00 06/26/22 00:09 06/26/22 02:38 Temperature 99.4 F Pulse Rate 93 H Respiratory Rate 25 H Blood Pressure 110/55 L Pulse Oximetry 96 Oxygen Delivery Method Room Air 06/26/22 00:30 06/26/22 00:30 06/26/22 01:00 Temperature Pulse Rate 86 Respiratory Rate 26 H Blood Pressure 119/67 124/57 L Pulse Oximetry 95 Oxygen Delivery Method 06/26/22 01:00 06/26/22 01:30 06/26/22 01:30 Temperature Pulse Rate 86 96 H Respiratory Rate 28 H 29 H Blood Pressure 129/58 L Pulse Oximetry 95 95 Oxygen Delivery Method 06/26/22 02:00 06/26/22 02:00 06/26/22 02:31 Temperature Pulse Rate 96 H 92 H Respiratory Rate 29 H 31 H Blood Pressure 118/67 Pulse Oximetry 95 96 Oxygen Delivery Method 06/26/22 02:31 06/26/22 03:00 06/26/22 03:00 Temperature Pulse Rate 92 H Respiratory Rate 31 H Blood Pressure 138/63 122/63 Pulse Oximetry 97 Oxygen Delivery Method 06/26/22 03:30 06/26/22 03:30 06/26/22 04:01 Temperature Pulse Rate 91 H 102 H Respiratory Rate 31 H 32 H Blood Pressure 119/63 Pulse Oximetry 96 96 Oxygen Delivery Method 06/26/22 04:01 06/26/22 04:30 06/26/22 04:30 Temperature 98.6 F Pulse Rate 97 H Respiratory Rate 31 H Blood Pressure 144/63 H 132/69 Pulse Oximetry 95 Oxygen Delivery Method 06/26/22 04:52 Temperature Pulse Rate 91 H Respiratory Rate 32 H Blood Pressure Pulse Oximetry 95 Oxygen Delivery Method Oxygen Delivery Method Room Air Oxygen Flow Rate 0 Narrative Exam Narrative: Awake, alert and conversant. HR irregular but in 90s; BP WNL. Mild tachypnea. U nable to view LLE well but obvious erythema notable. Objective Labs 06/26/22 02:15 06/25/22 15:25 Labs: Laboratory Results - last 24 hr 06/25/22 06/25/22 06/25/22 15:25 15:25 15:25 WBC 15.9 H RBC 5.00 Hgb 14.6 Hct 43.2 MCV 86.5 MCH 29.3 MCHC 33.8 RDW 15.3 H Plt Count 162 Neut % (Auto) 81.5 H Lymph % (Auto) 9.0 L [place] % (Auto) 9.2 Eos % (Auto) 0.0 L Baso % (Auto) 0.3 Neut # (Auto) 97989 H Lymph # (Auto) 1400 [place] # (Auto) 1500 H Eos # (Auto) 0 Baso # (Auto) 0 ESR PT 19.2 H INR 1.7 H APTT 33 VBG pH VBG pCO2 VBG pO2 VBG HCO3 VBG Total CO2 VBG O2 Saturation VBG Base Excess FiO2 Sodium 128 L Potassium 4.5 Chloride 96 L Carbon Dioxide 19 L BUN 24 H Creatinine 1.12 Estimated GFR > 60 BUN/Creatinine Ratio 21.4 Glucose 252 H Hemoglobin A1c Lactate Calcium 8.9 Magnesium 1.2 L Total Bilirubin 1.2 AST 32 ALT 29 Alkaline Phosphatase 97 Total Creatine Kinase 133 CK-MB (CK-2) 1.09 CK-MB (CK-2) Rel Index 0.8 L Troponin I 0.016 C-Reactive Protein NT-Pro-B Natriuret Pep Total Protein 7.7 Albumin 4.1 Globulin 3.6 Albumin/Globulin Ratio 1.1 Lipase 367 H Procalcitonin TSH Free T4 Nasal Screen MRSA (PCR) Ethyl Alcohol Chlamy pneumoniae PCR Adenovirus (PCR) B. pertussis DNA (PCR) B.parapertussis DNA PCR Coronavirus OC43 (PCR) Coronavirus HKU1 (PCR) Coronavirus 229E (PCR) SARS-CoV-2 (PCR) Coronavirus NL63 (PCR) Human Metapneumovir PCR Influenza A (RT-PCR) Influenza Type A (PCR) Influenza B (RT-PCR) Influenza Type B (PCR) M. pneumoniae (PCR) Parainfluenza 1 (PCR) Parainfluenza 2 (PCR) Parainfluenza 3 (PCR) Parainfluenza 4 (PCR) RSV (PCR) Entero/Rhino (PCR) 06/25/22 06/25/22 06/25/22 15:25 15:25 15:49 WBC RBC Hgb Hct MCV MCH MCHC RDW Plt Count Neut % (Auto) Lymph % (Auto) [place] % (Auto) Eos % (Auto) Baso % (Auto) Neut # (Auto) Lymph # (Auto) [place] # (Auto) Eos # (Auto) Baso # (Auto) ESR PT INR APTT VBG pH VBG pCO2 VBG pO2 VBG HCO3 VBG Total CO2 VBG O2 Saturation VBG Base Excess FiO2 Sodium Potassium Chloride Carbon Dioxide BUN Creatinine Estimated GFR BUN/Creatinine Ratio Glucose Hemoglobin A1c Lactate 3.2 H Calcium Magnesium Total Bilirubin AST ALT Alkaline Phosphatase Total Creatine Kinase CK-MB (CK-2) CK-MB (CK-2) Rel Index Troponin I C-Reactive Protein NT-Pro-B Natriuret Pep 2810 H Total Protein Albumin Globulin Albumin/Globulin Ratio Lipase Procalcitonin 0.50 TSH Free T4 Nasal Screen MRSA (PCR) Ethyl Alcohol Chlamy pneumoniae PCR Adenovirus (PCR) B. pertussis DNA (PCR) B.parapertussis DNA PCR Coronavirus OC43 (PCR) Coronavirus HKU1 (PCR) Coronavirus 229E (PCR) SARS-CoV-2 (PCR) Negative Coronavirus NL63 (PCR) Human Metapneumovir PCR Influenza A (RT-PCR) Flu a negative Influenza Type A (PCR) Influenza B (RT-PCR) Flu b negative Influenza Type B (PCR) M. pneumoniae (PCR) Parainfluenza 1 (PCR) Parainfluenza 2 (PCR) Parainfluenza 3 (PCR) Parainfluenza 4 (PCR) RSV (PCR) Negative Entero/Rhino (PCR) 06/25/22 06/25/22 06/25/22 18:15 19:10 20:51 WBC RBC Hgb Hct MCV MCH MCHC RDW Plt Count Neut % (Auto) Lymph % (Auto) [place] % (Auto) Eos % (Auto) Baso % (Auto) Neut # (Auto) Lymph # (Auto) [place] # (Auto) Eos # (Auto) Baso # (Auto) ESR PT INR APTT VBG pH VBG pCO2 VBG pO2 VBG HCO3 VBG Total CO2 VBG O2 Saturation VBG Base Excess FiO2 Sodium Potassium Chloride Carbon Dioxide BUN Creatinine Estimated GFR BUN/Creatinine Ratio Glucose Hemoglobin A1c Lactate 1.0 Calcium Magnesium Total Bilirubin AST ALT Alkaline Phosphatase Total Creatine Kinase CK-MB (CK-2) CK-MB (CK-2) Rel Index Troponin I C-Reactive Protein NT-Pro-B Natriuret Pep Total Protein Albumin Globulin Albumin/Globulin Ratio Lipase Procalcitonin TSH Free T4 Nasal Screen MRSA (PCR) Not detected Ethyl Alcohol < 10 Chlamy pneumoniae PCR Adenovirus (PCR) B. pertussis DNA (PCR) B.parapertussis DNA PCR Coronavirus OC43 (PCR) Coronavirus HKU1 (PCR) Coronavirus 229E (PCR) SARS-CoV-2 (PCR) Coronavirus NL63 (PCR) Human Metapneumovir PCR Influenza A (RT-PCR) Influenza Type A (PCR) Influenza B (RT-PCR) Influenza Type B (PCR) M. pneumoniae (PCR) Parainfluenza 1 (PCR) Parainfluenza 2 (PCR) Parainfluenza 3 (PCR) Parainfluenza 4 (PCR) RSV (PCR) Entero/Rhino (PCR) 06/25/22 06/25/22 06/25/22 20:51 20:51 20:51 WBC RBC Hgb Hct MCV MCH MCHC RDW Plt Count Neut % (Auto) Lymph % (Auto) [place] % (Auto) Eos % (Auto) Baso % (Auto) Neut # (Auto) Lymph # (Auto) [place] # (Auto) Eos # (Auto) Baso # (Auto) ESR PT INR APTT VBG pH VBG pCO2 VBG pO2 VBG HCO3 VBG Total CO2 VBG O2 Saturation VBG Base Excess FiO2 Sodium Potassium Chloride Carbon Dioxide BUN Creatinine Estimated GFR BUN/Creatinine Ratio Glucose Hemoglobin A1c Cancelled Lactate Calcium Magnesium Total Bilirubin AST ALT Alkaline Phosphatase Total Creatine Kinase CK-MB (CK-2) CK-MB (CK-2) Rel Index Troponin I 0.251 H* C-Reactive Protein NT-Pro-B Natriuret Pep Total Protein Albumin Globulin Albumin/Globulin Ratio Lipase Procalcitonin TSH 1.23 Free T4 1.26 Nasal Screen MRSA (PCR) Ethyl Alcohol Chlamy pneumoniae PCR Adenovirus (PCR) B. pertussis DNA (PCR) B.parapertussis DNA PCR Coronavirus OC43 (PCR) Coronavirus HKU1 (PCR) Coronavirus 229E (PCR) SARS-CoV-2 (PCR) Coronavirus NL63 (PCR) Human Metapneumovir PCR Influenza A (RT-PCR) Influenza Type A (PCR) Influenza B (RT-PCR) Influenza Type B (PCR) M. pneumoniae (PCR) Parainfluenza 1 (PCR) Parainfluenza 2 (PCR) Parainfluenza 3 (PCR) Parainfluenza 4 (PCR) RSV (PCR) Entero/Rhino (PCR) 06/25/22 06/25/22 06/26/22 20:51 21:50 02:15 WBC RBC Hgb Hct MCV MCH MCHC RDW Plt Count Neut % (Auto) Lymph % (Auto) [place] % (Auto) Eos % (Auto) Baso % (Auto) Neut # (Auto) Lymph # (Auto) [place] # (Auto) Eos # (Auto) Baso # (Auto) ESR PT INR APTT VBG pH 7.44 H VBG pCO2 30.5 L VBG pO2 34 L VBG HCO3 21 L VBG Total CO2 21 L VBG O2 Saturation 69 L VBG Base Excess -4.0 L FiO2 21 Sodium Potassium Chloride Carbon Dioxide BUN Creatinine Estimated GFR BUN/Creatinine Ratio Glucose Hemoglobin A1c Lactate Calcium Magnesium Total Bilirubin AST ALT Alkaline Phosphatase Total Creatine Kinase CK-MB (CK-2) CK-MB (CK-2) Rel Index Troponin I 0.248 H* C-Reactive Protein NT-Pro-B Natriuret Pep Total Protein Albumin Globulin Albumin/Globulin Ratio Lipase Procalcitonin TSH Free T4 Nasal Screen MRSA (PCR) Ethyl Alcohol Chlamy pneumoniae PCR Not detected Adenovirus (PCR) Not detected B. pertussis DNA (PCR) Not detected B.parapertussis DNA PCR Not detected Coronavirus OC43 (PCR) Not detected Coronavirus HKU1 (PCR) Not detected Coronavirus 229E (PCR) Not detected SARS-CoV-2 (PCR) Not detected Coronavirus NL63 (PCR) Not detected Human Metapneumovir PCR Not detected Influenza A (RT-PCR) Influenza Type A (PCR) Not detected Influenza B (RT-PCR) Influenza Type B (PCR) Not detected M. pneumoniae (PCR) Not detected Parainfluenza 1 (PCR) Not detected Parainfluenza 2 (PCR) Not detected Parainfluenza 3 (PCR) Not detected Parainfluenza 4 (PCR) Not detected RSV (PCR) Not detected Entero/Rhino (PCR) Not detected 06/26/22 06/26/22 06/26/22 02:15 02:15 02:15 WBC RBC Hgb Hct MCV MCH MCHC RDW Plt Count Neut % (Auto) Lymph % (Auto) [place] % (Auto) Eos % (Auto) Baso % (Auto) Neut # (Auto) Lymph # (Auto) [place] # (Auto) Eos # (Auto) Baso # (Auto) ESR PT 16.4 H INR 1.4 H APTT VBG pH VBG pCO2 VBG pO2 VBG HCO3 VBG Total CO2 VBG O2 Saturation VBG Base Excess FiO2 Sodium Potassium Chloride Carbon Dioxide BUN Creatinine Estimated GFR BUN/Creatinine Ratio Glucose Hemoglobin A1c Lactate 1.4 Calcium Magnesium 1.9 Total Bilirubin AST ALT Alkaline Phosphatase Total Creatine Kinase CK-MB (CK-2) CK-MB (CK-2) Rel Index Troponin I C-Reactive Protein NT-Pro-B Natriuret Pep 3710 H Total Protein Albumin Globulin Albumin/Globulin Ratio Lipase Procalcitonin TSH Free T4 Nasal Screen MRSA (PCR) Ethyl Alcohol Chlamy pneumoniae PCR Adenovirus (PCR) B. pertussis DNA (PCR) B.parapertussis DNA PCR Coronavirus OC43 (PCR) Coronavirus HKU1 (PCR) Coronavirus 229E (PCR) SARS-CoV-2 (PCR) Coronavirus NL63 (PCR) Human Metapneumovir PCR Influenza A (RT-PCR) Influenza Type A (PCR) Influenza B (RT-PCR) Influenza Type B (PCR) M. pneumoniae (PCR) Parainfluenza 1 (PCR) Parainfluenza 2 (PCR) Parainfluenza 3 (PCR) Parainfluenza 4 (PCR) RSV (PCR) Entero/Rhino (PCR) 06/26/22 06/26/22 06/26/22 02:15 02:15 02:15 WBC 9.9 RBC 4.58 Hgb 13.5 Hct 39.8 L MCV 86.9 MCH 29.5 MCHC 33.9 RDW 15.3 H Plt Count 121 L Neut % (Auto) 85.4 H Lymph % (Auto) 6.1 L [place] % (Auto) 8.2 Eos % (Auto) 0.1 L Baso % (Auto) 0.2 Neut # (Auto) 8500 H Lymph # (Auto) 600 L [place] # (Auto) 800 Eos # (Auto) 0 Baso # (Auto) 0 ESR 41 H PT INR APTT VBG pH VBG pCO2 VBG pO2 VBG HCO3 VBG Total CO2 VBG O2 Saturation VBG Base Excess FiO2 Sodium Potassium Chloride Carbon Dioxide BUN Creatinine Estimated GFR BUN/Creatinine Ratio Glucose Hemoglobin A1c Lactate Calcium Magnesium Total Bilirubin AST ALT Alkaline Phosphatase Total Creatine Kinase CK-MB (CK-2) CK-MB (CK-2) Rel Index Troponin I C-Reactive Protein 12.9 H NT-Pro-B Natriuret Pep Total Protein Albumin Globulin Albumin/Globulin Ratio Lipase Procalcitonin TSH Free T4 Nasal Screen MRSA (PCR) Ethyl Alcohol Chlamy pneumoniae PCR Adenovirus (PCR) B. pertussis DNA (PCR) B.parapertussis DNA PCR Coronavirus OC43 (PCR) Coronavirus HKU1 (PCR) Coronavirus 229E (PCR) SARS-CoV-2 (PCR) Coronavirus NL63 (PCR) Human Metapneumovir PCR Influenza A (RT-PCR) Influenza Type A (PCR) Influenza B (RT-PCR) Influenza Type B (PCR) M. pneumoniae (PCR) Parainfluenza 1 (PCR) Parainfluenza 2 (PCR) Parainfluenza 3 (PCR) Parainfluenza 4 (PCR) RSV (PCR) Entero/Rhino (PCR) Assessment & Plan Assessment and plan (1) Atrial fibrillation with RVR: Status: Acute (2) Sepsis: Status: Acute (3) Cellulitis of left leg: Status: Acute (4) Elevated troponin: Status: Acute (5) Hyperglycemia: Status: Acute (6) Hyponatremia: Status: Acute (7) Thrombocytopenia: Status: Acute Assessment & Plan narrative: - Obtain XRs of LLE for further assessment of Osteo given histry and elevated ESR/CRP - Consider trending inflammatory markers - Continue Zosyn. MRSA negative. - Follow up blood cultures - US LLE (would consider arterial/venous eval) - Start home Metop (50 BID), hold Dilt drip - Continue Xarelto. - Monitor platelets - Lantus 12u QHS, SSI ordered. Adjust insulin regimen as needed, BG goal < 180. Follow up HgbA1c - DC mIVF given e/o pulmonary edema. - Consider diuresis today. Monitor electrolytes/Cr/UOP - Will consider TTE
[2022-06-26 06:50] LABS: HEMOLYSIS 77 (0-50)
[2022-06-26 06:51] LABS: Potassium 4.2 mmol/L (3.4-5.1)
[2022-06-26 06:52] LABS: Aspartate Aminotransferase 39 IU/L (17-59)
[2022-06-26] MEDS: METOPROLOL ER 50 MG TABLET PO (08:30)
[2022-06-26] MEDS: INSULIN LISPRO 100 UNIT/ML 3ML VIAL SUBCUT ×3 (08:30→17:21)
--- NOTE | 2022-06-26 09:14 | P.PN_ITS ---
Subjective Subjective Interval history: Patient's heart rate continuing to rise in the 130s. Metoprolol succinate stopped and metoprolol tartrate 25 q.6 scheduled ordered. Troponin elevated to 0.248 but patient denies chest pain. Exam Vital Signs (past 8 hours): - 06/26/22 02:38 06/26/22 01:30 06/26/22 01:30 Temperature Pulse Rate 96 H Respiratory Rate 29 H Blood Pressure 129/58 L Pulse Oximetry 95 Oxygen Delivery Method Room Air 06/26/22 02:00 06/26/22 02:00 06/26/22 02:31 Temperature Pulse Rate 96 H 92 H Respiratory Rate 29 H 31 H Blood Pressure 118/67 Pulse Oximetry 95 96 Oxygen Delivery Method 06/26/22 02:31 06/26/22 03:00 06/26/22 03:00 Temperature Pulse Rate 92 H Respiratory Rate 31 H Blood Pressure 138/63 122/63 Pulse Oximetry 97 Oxygen Delivery Method 06/26/22 03:30 06/26/22 03:30 06/26/22 04:01 Temperature Pulse Rate 91 H 102 H Respiratory Rate 31 H 32 H Blood Pressure 119/63 Pulse Oximetry 96 96 Oxygen Delivery Method 06/26/22 04:01 06/26/22 04:30 06/26/22 04:30 Temperature 98.6 F Pulse Rate 97 H Respiratory Rate 31 H Blood Pressure 144/63 H 132/69 Pulse Oximetry 95 Oxygen Delivery Method 06/26/22 04:52 06/26/22 05:00 06/26/22 05:10 Temperature Pulse Rate 91 H 98 H Respiratory Rate 32 H 33 H Blood Pressure Pulse Oximetry 95 95 Oxygen Delivery Method Room Air 06/26/22 05:15 06/26/22 05:20 06/26/22 05:25 Temperature Pulse Rate 96 H 97 H 98 H Respiratory Rate 34 H 34 H 33 H Blood Pressure Pulse Oximetry 94 95 95 Oxygen Delivery Method 06/26/22 05:30 06/26/22 05:30 06/26/22 05:35 Temperature Pulse Rate 101 H 88 Respiratory Rate 33 H 32 H Blood Pressure 117/58 L Pulse Oximetry 95 95 Oxygen Delivery Method 06/26/22 05:40 06/26/22 05:45 06/26/22 05:50 Temperature Pulse Rate 97 H 100 H 94 H Respiratory Rate 31 H 32 H 31 H Blood Pressure Pulse Oximetry 95 95 95 Oxygen Delivery Method 06/26/22 05:55 06/26/22 06:00 06/26/22 06:00 Temperature Pulse Rate 88 118 H Respiratory Rate 30 H 33 H Blood Pressure 133/74 Pulse Oximetry 95 96 Oxygen Delivery Method 06/26/22 06:05 06/26/22 06:10 06/26/22 06:15 Temperature Pulse Rate 103 H 104 H 104 H Respiratory Rate 33 H 34 H 34 H Blood Pressure Pulse Oximetry 96 96 96 Oxygen Delivery Method 06/26/22 06:20 06/26/22 06:25 06/26/22 06:30 Temperature Pulse Rate 105 H 101 H Respiratory Rate 30 H 35 H Blood Pressure 137/70 Pulse Oximetry 96 96 Oxygen Delivery Method 06/26/22 06:30 06/26/22 06:35 06/26/22 06:40 Temperature Pulse Rate 104 H 108 H 111 H Respiratory Rate 38 H 35 H 31 H Blood Pressure Pulse Oximetry 95 97 96 Oxygen Delivery Method 06/26/22 06:45 06/26/22 06:50 06/26/22 06:55 Temperature Pulse Rate 111 H 106 H 105 H Respiratory Rate 28 H 31 H 38 H Blood Pressure Pulse Oximetry 96 96 96 Oxygen Delivery Method 06/26/22 07:00 06/26/22 07:00 06/26/22 07:05 Temperature Pulse Rate 107 H 109 H Respiratory Rate 36 H 36 H Blood Pressure 133/75 Pulse Oximetry 96 96 Oxygen Delivery Method 06/26/22 07:10 06/26/22 07:15 06/26/22 07:20 Temperature Pulse Rate 111 H 107 H 99 H Respiratory Rate 37 H 30 H 35 H Blood Pressure Pulse Oximetry 96 96 96 Oxygen Delivery Method 06/26/22 07:25 06/26/22 07:30 06/26/22 07:30 Temperature Pulse Rate 100 H 104 H Respiratory Rate 35 H 34 H Blood Pressure 138/65 Pulse Oximetry 96 95 Oxygen Delivery Method 06/26/22 07:35 06/26/22 07:40 06/26/22 07:45 Temperature Pulse Rate 102 H 102 H 111 H Respiratory Rate 35 H 36 H 35 H Blood Pressure Pulse Oximetry 96 95 96 Oxygen Delivery Method 06/26/22 07:50 06/26/22 07:55 06/26/22 08:00 Temperature Pulse Rate 106 H 111 H Respiratory Rate 35 H 37 H Blood Pressure 152/75 H Pulse Oximetry 96 95 Oxygen Delivery Method 06/26/22 08:00 06/26/22 08:05 06/26/22 08:10 Temperature Pulse Rate 127 H 104 H 109 H Respiratory Rate 37 H 37 H 36 H Blood Pressure Pulse Oximetry 97 96 95 Oxygen Delivery Method 06/26/22 08:15 06/26/22 08:20 06/26/22 08:25 Temperature Pulse Rate 108 H 97 H 102 H Respiratory Rate 34 H 36 H 34 H Blood Pressure Pulse Oximetry 96 95 95 Oxygen Delivery Method 06/26/22 08:30 06/26/22 08:30 06/26/22 08:35 Temperature Pulse Rate 106 H 107 H Respiratory Rate 34 H 28 H Blood Pressure 137/75 Pulse Oximetry 97 97 Oxygen Delivery Method 06/26/22 08:40 06/26/22 09:00 06/26/22 09:00 Temperature Pulse Rate 116 H 118 H Respiratory Rate 36 H 38 H Blood Pressure 110/83 Pulse Oximetry 97 97 Oxygen Delivery Method Oxygen Delivery Method Room Air Oxygen Flow Rate 0 Narrative Exam Narrative: General: Patient is a well-developed, well-nourished in no distress at this time. HEENT: Normocephalic, atraumatic, extraocular muscles intact, oral pharynx is clear and mucous membranes are moist. Neck is supple and symmetric, trachea is midline, no adenopathy, no thyroid enlargement, nontender, no masses palpated. Negative for JVD Chest: Normal AP diameter and contour without kyphoscoliosis, no nasal flaring, retractions, or tachypneic labored breathing Lungs: Auscultation of all lung raines are clear without adventitious sounds, wheezes, rhonchi, or rales. Cardio: regular rate and rhythm without murmur, rubs, or gallops, no carotid bruit, no cardiac pulsations present. Abdomen: Soft nontender, negative for organomegaly, or masses. Bowel sounds are present in all 4 quadrants without guarding or rebound, no CVA tenderness. Musculoskeletal: Bilateral lower extremity edema, left greater than right, left erythematous warm to touch, cellulitis radial and pedal pulses are normal. Skin: Warm dry and intact without rashes, ulcerations or petechiae. Neuro: Alert and orientated x3, moves all extremities, sensation to touch intact, no gross deficits noted of cranial nerves. Psych: Patient has a well-kept appearance, appropriate affect, mental status attitude thought context and judgment are appropriate for age. Objective Labs 06/26/22 02:15 06/26/22 02:15 Labs: Laboratory Results - last 24 hr 06/25/22 06/25/22 06/25/22 15:25 15:25 15:25 WBC 15.9 H RBC 5.00 Hgb 14.6 Hct 43.2 MCV 86.5 MCH 29.3 MCHC 33.8 RDW 15.3 H Plt Count 162 Neut % (Auto) 81.5 H Lymph % (Auto) 9.0 L [place] % (Auto) 9.2 Eos % (Auto) 0.0 L Baso % (Auto) 0.3 Neut # (Auto) 63783 H Lymph # (Auto) 1400 [place] # (Auto) 1500 H Eos # (Auto) 0 Baso # (Auto) 0 ESR PT 19.2 H INR 1.7 H APTT 33 VBG pH VBG pCO2 VBG pO2 VBG HCO3 VBG Total CO2 VBG O2 Saturation VBG Base Excess FiO2 Sodium 128 L Potassium 4.5 Chloride 96 L Carbon Dioxide 19 L BUN 24 H Creatinine 1.12 Estimated GFR > 60 BUN/Creatinine Ratio 21.4 Glucose 252 H Hemoglobin A1c Lactate Calcium 8.9 Magnesium 1.2 L Total Bilirubin 1.2 AST 32 ALT 29 Alkaline Phosphatase 97 Total Creatine Kinase 133 CK-MB (CK-2) 1.09 CK-MB (CK-2) Rel Index 0.8 L Troponin I 0.016 C-Reactive Protein NT-Pro-B Natriuret Pep Total Protein 7.7 Albumin 4.1 Globulin 3.6 Albumin/Globulin Ratio 1.1 Lipase 367 H Procalcitonin TSH Free T4 Nasal Screen MRSA (PCR) Ethyl Alcohol Chlamy pneumoniae PCR Adenovirus (PCR) B. pertussis DNA (PCR) B.parapertussis DNA PCR Coronavirus OC43 (PCR) Coronavirus HKU1 (PCR) Coronavirus 229E (PCR) SARS-CoV-2 (PCR) Coronavirus NL63 (PCR) Human Metapneumovir PCR Influenza A (RT-PCR) Influenza Type A (PCR) Influenza B (RT-PCR) Influenza Type B (PCR) M. pneumoniae (PCR) Parainfluenza 1 (PCR) Parainfluenza 2 (PCR) Parainfluenza 3 (PCR) Parainfluenza 4 (PCR) RSV (PCR) Entero/Rhino (PCR) 06/25/22 06/25/22 06/25/22 15:25 15:25 15:49 WBC RBC Hgb Hct MCV MCH MCHC RDW Plt Count Neut % (Auto) Lymph % (Auto) [place] % (Auto) Eos % (Auto) Baso % (Auto) Neut # (Auto) Lymph # (Auto) [place] # (Auto) Eos # (Auto) Baso # (Auto) ESR PT INR APTT VBG pH VBG pCO2 VBG pO2 VBG HCO3 VBG Total CO2 VBG O2 Saturation VBG Base Excess FiO2 Sodium Potassium Chloride Carbon Dioxide BUN Creatinine Estimated GFR BUN/Creatinine Ratio Glucose Hemoglobin A1c Lactate 3.2 H Calcium Magnesium Total Bilirubin AST ALT Alkaline Phosphatase Total Creatine Kinase CK-MB (CK-2) CK-MB (CK-2) Rel Index Troponin I C-Reactive Protein NT-Pro-B Natriuret Pep 2810 H Total Protein Albumin Globulin Albumin/Globulin Ratio Lipase Procalcitonin 0.50 TSH Free T4 Nasal Screen MRSA (PCR) Ethyl Alcohol Chlamy pneumoniae PCR Adenovirus (PCR) B. pertussis DNA (PCR) B.parapertussis DNA PCR Coronavirus OC43 (PCR) Coronavirus HKU1 (PCR) Coronavirus 229E (PCR) SARS-CoV-2 (PCR) Negative Coronavirus NL63 (PCR) Human Metapneumovir PCR Influenza A (RT-PCR) Flu a negative Influenza Type A (PCR) Influenza B (RT-PCR) Flu b negative Influenza Type B (PCR) M. pneumoniae (PCR) Parainfluenza 1 (PCR) Parainfluenza 2 (PCR) Parainfluenza 3 (PCR) Parainfluenza 4 (PCR) RSV (PCR) Negative Entero/Rhino (PCR) 06/25/22 06/25/22 06/25/22 18:15 19:10 20:51 WBC RBC Hgb Hct MCV MCH MCHC RDW Plt Count Neut % (Auto) Lymph % (Auto) [place] % (Auto) Eos % (Auto) Baso % (Auto) Neut # (Auto) Lymph # (Auto) [place] # (Auto) Eos # (Auto) Baso # (Auto) ESR PT INR APTT VBG pH VBG pCO2 VBG pO2 VBG HCO3 VBG Total CO2 VBG O2 Saturation VBG Base Excess FiO2 Sodium Potassium Chloride Carbon Dioxide BUN Creatinine Estimated GFR BUN/Creatinine Ratio Glucose Hemoglobin A1c Lactate 1.0 Calcium Magnesium Total Bilirubin AST ALT Alkaline Phosphatase Total Creatine Kinase CK-MB (CK-2) CK-MB (CK-2) Rel Index Troponin I C-Reactive Protein NT-Pro-B Natriuret Pep Total Protein Albumin Globulin Albumin/Globulin Ratio Lipase Procalcitonin TSH Free T4 Nasal Screen MRSA (PCR) Not detected Ethyl Alcohol < 10 Chlamy pneumoniae PCR Adenovirus (PCR) B. pertussis DNA (PCR) B.parapertussis DNA PCR Coronavirus OC43 (PCR) Coronavirus HKU1 (PCR) Coronavirus 229E (PCR) SARS-CoV-2 (PCR) Coronavirus NL63 (PCR) Human Metapneumovir PCR Influenza A (RT-PCR) Influenza Type A (PCR) Influenza B (RT-PCR) Influenza Type B (PCR) M. pneumoniae (PCR) Parainfluenza 1 (PCR) Parainfluenza 2 (PCR) Parainfluenza 3 (PCR) Parainfluenza 4 (PCR) RSV (PCR) Entero/Rhino (PCR) 06/25/22 06/25/22 06/25/22 20:51 20:51 20:51 WBC RBC Hgb Hct MCV MCH MCHC RDW Plt Count Neut % (Auto) Lymph % (Auto) [place] % (Auto) Eos % (Auto) Baso % (Auto) Neut # (Auto) Lymph # (Auto) [place] # (Auto) Eos # (Auto) Baso # (Auto) ESR PT INR APTT VBG pH VBG pCO2 VBG pO2 VBG HCO3 VBG Total CO2 VBG O2 Saturation VBG Base Excess FiO2 Sodium Potassium Chloride Carbon Dioxide BUN Creatinine Estimated GFR BUN/Creatinine Ratio Glucose Hemoglobin A1c Cancelled Lactate Calcium Magnesium Total Bilirubin AST ALT Alkaline Phosphatase Total Creatine Kinase CK-MB (CK-2) CK-MB (CK-2) Rel Index Troponin I 0.251 H* C-Reactive Protein NT-Pro-B Natriuret Pep Total Protein Albumin Globulin Albumin/Globulin Ratio Lipase Procalcitonin TSH 1.23 Free T4 1.26 Nasal Screen MRSA (PCR) Ethyl Alcohol Chlamy pneumoniae PCR Adenovirus (PCR) B. pertussis DNA (PCR) B.parapertussis DNA PCR Coronavirus OC43 (PCR) Coronavirus HKU1 (PCR) Coronavirus 229E (PCR) SARS-CoV-2 (PCR) Coronavirus NL63 (PCR) Human Metapneumovir PCR Influenza A (RT-PCR) Influenza Type A (PCR) Influenza B (RT-PCR) Influenza Type B (PCR) M. pneumoniae (PCR) Parainfluenza 1 (PCR) Parainfluenza 2 (PCR) Parainfluenza 3 (PCR) Parainfluenza 4 (PCR) RSV (PCR) Entero/Rhino (PCR) 06/25/22 06/25/22 06/26/22 20:51 21:50 02:15 WBC RBC Hgb Hct MCV MCH MCHC RDW Plt Count Neut % (Auto) Lymph % (Auto) [place] % (Auto) Eos % (Auto) Baso % (Auto) Neut # (Auto) Lymph # (Auto) [place] # (Auto) Eos # (Auto) Baso # (Auto) ESR PT INR APTT VBG pH 7.44 H VBG pCO2 30.5 L VBG pO2 34 L VBG HCO3 21 L VBG Total CO2 21 L VBG O2 Saturation 69 L VBG Base Excess -4.0 L FiO2 21 Sodium Potassium Chloride Carbon Dioxide BUN Creatinine Estimated GFR BUN/Creatinine Ratio Glucose Hemoglobin A1c Lactate Calcium Magnesium Total Bilirubin AST ALT Alkaline Phosphatase Total Creatine Kinase CK-MB (CK-2) CK-MB (CK-2) Rel Index Troponin I 0.248 H* C-Reactive Protein NT-Pro-B Natriuret Pep Total Protein Albumin Globulin Albumin/Globulin Ratio Lipase Procalcitonin TSH Free T4 Nasal Screen MRSA (PCR) Ethyl Alcohol Chlamy pneumoniae PCR Not detected Adenovirus (PCR) Not detected B. pertussis DNA (PCR) Not detected B.parapertussis DNA PCR Not detected Coronavirus OC43 (PCR) Not detected Coronavirus HKU1 (PCR) Not detected Coronavirus 229E (PCR) Not detected SARS-CoV-2 (PCR) Not detected Coronavirus NL63 (PCR) Not detected Human Metapneumovir PCR Not detected Influenza A (RT-PCR) Influenza Type A (PCR) Not detected Influenza B (RT-PCR) Influenza Type B (PCR) Not detected M. pneumoniae (PCR) Not detected Parainfluenza 1 (PCR) Not detected Parainfluenza 2 (PCR) Not detected Parainfluenza 3 (PCR) Not detected Parainfluenza 4 (PCR) Not detected RSV (PCR) Not detected Entero/Rhino (PCR) Not detected 06/26/22 06/26/22 06/26/22 02:15 02:15 02:15 WBC RBC Hgb Hct MCV MCH MCHC RDW Plt Count Neut % (Auto) Lymph % (Auto) [place] % (Auto) Eos % (Auto) Baso % (Auto) Neut # (Auto) Lymph # (Auto) [place] # (Auto) Eos # (Auto) Baso # (Auto) ESR PT 16.4 H INR 1.4 H APTT VBG pH VBG pCO2 VBG pO2 VBG HCO3 VBG Total CO2 VBG O2 Saturation VBG Base Excess FiO2 Sodium Potassium Chloride Carbon Dioxide BUN Creatinine Estimated GFR BUN/Creatinine Ratio Glucose Hemoglobin A1c Lactate 1.4 Calcium Magnesium 1.9 Total Bilirubin AST ALT Alkaline Phosphatase Total Creatine Kinase CK-MB (CK-2) CK-MB (CK-2) Rel Index Troponin I C-Reactive Protein NT-Pro-B Natriuret Pep 3710 H Total Protein Albumin Globulin Albumin/Globulin Ratio Lipase Procalcitonin TSH Free T4 Nasal Screen MRSA (PCR) Ethyl Alcohol Chlamy pneumoniae PCR Adenovirus (PCR) B. pertussis DNA (PCR) B.parapertussis DNA PCR Coronavirus OC43 (PCR) Coronavirus HKU1 (PCR) Coronavirus 229E (PCR) SARS-CoV-2 (PCR) Coronavirus NL63 (PCR) Human Metapneumovir PCR Influenza A (RT-PCR) Influenza Type A (PCR) Influenza B (RT-PCR) Influenza Type B (PCR) M. pneumoniae (PCR) Parainfluenza 1 (PCR) Parainfluenza 2 (PCR) Parainfluenza 3 (PCR) Parainfluenza 4 (PCR) RSV (PCR) Entero/Rhino (PCR) 06/26/22 06/26/22 06/26/22 02:15 02:15 02:15 WBC 9.9 RBC 4.58 Hgb 13.5 Hct 39.8 L MCV 86.9 MCH 29.5 MCHC 33.9 RDW 15.3 H Plt Count 121 L Neut % (Auto) 85.4 H Lymph % (Auto) 6.1 L [place] % (Auto) 8.2 Eos % (Auto) 0.1 L Baso % (Auto) 0.2 Neut # (Auto) 8500 H Lymph # (Auto) 600 L [place] # (Auto) 800 Eos # (Auto) 0 Baso # (Auto) 0 ESR 41 H PT INR APTT VBG pH VBG pCO2 VBG pO2 VBG HCO3 VBG Total CO2 VBG O2 Saturation VBG Base Excess FiO2 Sodium Potassium Chloride Carbon Dioxide BUN Creatinine Estimated GFR BUN/Creatinine Ratio Glucose Hemoglobin A1c Lactate Calcium Magnesium Total Bilirubin AST ALT Alkaline Phosphatase Total Creatine Kinase CK-MB (CK-2) CK-MB (CK-2) Rel Index Troponin I C-Reactive Protein 12.9 H NT-Pro-B Natriuret Pep Total Protein Albumin Globulin Albumin/Globulin Ratio Lipase Procalcitonin TSH Free T4 Nasal Screen MRSA (PCR) Ethyl Alcohol Chlamy pneumoniae PCR Adenovirus (PCR) B. pertussis DNA (PCR) B.parapertussis DNA PCR Coronavirus OC43 (PCR) Coronavirus HKU1 (PCR) Coronavirus 229E (PCR) SARS-CoV-2 (PCR) Coronavirus NL63 (PCR) Human Metapneumovir PCR Influenza A (RT-PCR) Influenza Type A (PCR) Influenza B (RT-PCR) Influenza Type B (PCR) M. pneumoniae (PCR) Parainfluenza 1 (PCR) Parainfluenza 2 (PCR) Parainfluenza 3 (PCR) Parainfluenza 4 (PCR) RSV (PCR) Entero/Rhino (PCR) 06/26/22 02:15 WBC RBC Hgb Hct MCV MCH MCHC RDW Plt Count Neut % (Auto) Lymph % (Auto) [place] % (Auto) Eos % (Auto) Baso % (Auto) Neut # (Auto) Lymph # (Auto) [place] # (Auto) Eos # (Auto) Baso # (Auto) ESR PT INR APTT VBG pH VBG pCO2 VBG pO2 VBG HCO3 VBG Total CO2 VBG O2 Saturation VBG Base Excess FiO2 Sodium 130 L Potassium 4.2 Chloride 99 Carbon Dioxide 20 L BUN 22 H Creatinine 0.99 Estimated GFR > 60 BUN/Creatinine Ratio 22.2 H Glucose 156 H Hemoglobin A1c Lactate Calcium 7.8 L Magnesium Total Bilirubin 1.2 AST 39 ALT 24 Alkaline Phosphatase 67 Total Creatine Kinase CK-MB (CK-2) CK-MB (CK-2) Rel Index Troponin I C-Reactive Protein NT-Pro-B Natriuret Pep Total Protein 6.0 L Albumin 3.1 L Globulin 2.9 Albumin/Globulin Ratio 1.1 Lipase Procalcitonin TSH Free T4 Nasal Screen MRSA (PCR) Ethyl Alcohol Chlamy pneumoniae PCR Adenovirus (PCR) B. pertussis DNA (PCR) B.parapertussis DNA PCR Coronavirus OC43 (PCR) Coronavirus HKU1 (PCR) Coronavirus 229E (PCR) SARS-CoV-2 (PCR) Coronavirus NL63 (PCR) Human Metapneumovir PCR Influenza A (RT-PCR) Influenza Type A (PCR) Influenza B (RT-PCR) Influenza Type B (PCR) M. pneumoniae (PCR) Parainfluenza 1 (PCR) Parainfluenza 2 (PCR) Parainfluenza 3 (PCR) Parainfluenza 4 (PCR) RSV (PCR) Entero/Rhino (PCR) [facility] Medical History (Updated 06/26/22 @ 06:48 by Magnolia Cr) Afib Diabetes Hyperlipidemia Hypertension Neuropathy of both feet Surgical History History of hernia repair History of neck surgery Family History Father Smoker Diabetes mellitus Heart attack Mother No significant medical problems Social History household members: spouse occupational status: employed Smoking Status: Never smoker alcohol intake: never Assessment & Plan Assessment & Plan narrative: Gorge Fuller is a 67yo M with PMH of A-fib on xeralto, DM2 with peripheral neuropathy, HTN, HLD, history of osteomyelitis, MSSA, 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 ? Patient presents with 5 days of fevers generally feeling unwell he states his heart rate has been fast, fever x 5 days, patient is a poor historian but verbalizes that he may have had increased swelling redness and pain of the left lower extremity for the past week, nausea and vomiting on way to the hospital. Patient admitted to the ICU teleICU for atrial fibrillation with RVR, sepsis without shock secondary to left lower extremity cellulitis, hyponatremia 1. 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 Sepsis without septic shock, secondary to left leg cellulitis, acute, present on admission- stable -SOFA:2, febrile, tachycardic, tachypneic -patient has diabetes with a history of osteomyelitis, MSSA resulting in right 3rd toe amputation in 2019 -WBC 15.9 on admission, now normal -admit continued to have a low-grade fever 100.9, developed hypotension 102/59, 98/54, map 75, HR 86 Afib, RR 20, O2 saturation 94% -left lower extremity ultrasound negative for DVT -patient had a history of urticaria with a previous dosage of Zosyn in 2019, placed patient on Zosyn with Benadryl to be given prior to dosage patient has tolerated well and not had any reaction. -continue vanc and zosyn, monitor for CEE 3. Essential hypertension, with hypertensive urgency, acute on chronic, present on admission-resolved -ED : BP 193/91, 183/84, -admit hypotension 102/59, 98/54, map 75 -holding patient's lisinopril due to sepsis 4. Type 2 diabetes insulin-dependent, with hyperglycemia, acute on chronic, with peripheral neuropathy, chronic, present on admission-uncontrolled -patient admitted under diabetic protocol -blood sugar checks a.c. HS, with sliding-scale coverage, continue Lantus -A1c has been ordered, A1c machine has been down 5. Overweight, mild, acute on chronic, present on admission -BMI 30.8 -dietary consult ordered regarding nutritional education and information for dietary, lifestyle, exercise, and weight changes. -the patient is at much higher risk for medical and surgical complications due to obesity as it relates to chronic illnesses:, and acute illness. The patient's obesity increases the difficulty and complexity of medical and/or surgical interventions, management and increases the chances of poor outcome such as morbidity and mortality as well as impaired wound healing. 6. Elevated troponin -trop up to 0.251, likely demand ischemia from sepsis and A-fib RVR -no chest pain or EKG changes -now downtrending Code status is full code. COVID negative. DVT prophylaxis with Xarelto. Proxy is Jess Fuller. Disposition: Pending improvement in LLE cellulitis and A-fib RVR. Likely 2-3 days then home. Quality VTE Deep Vein Thrombosis/Pulmonary Embolism Present on Admission: No
[2022-06-26 10:17] LABS: Strep Grp A by PCR Rapid Negative (Negative)
[2022-06-26] MEDS: FUROSEMIDE 20 MG/2 ML VIAL IV (10:40)
[2022-06-26] MEDS: METOPROLOL IR 25 MG TABLET PO ×2 (13:54→17:21)
--- NOTE | 2022-06-26 14:17 | CM.DANOTE ---
Patient is a 67 yo male PONCE who was admitted on 06/25/22 for Vomiting/Shaking. Pt has [facility] and [employer] for insurance and her PCP is Teresa Waters. EMR was reviewed. Per MD, pt has a hx of AFIB, neuropathy, osteomyelitis and hx of noncompliance with medical recommendations/meds. Pt admitted with AFIB/RVR and sepsis from cellulitis. Pt was recently discharged from admission 05/28-05/31/22 back to home with spouse assist. SW met bedside with pt and explained role and pt remembers this SW from last admission a few weeks ago and he confirms that he lives with his in [place]. He states that his still goes to [place] Saturday- to care for their grandchildren and pt is home alone during that time but states he is independent mostly with his ADLs. Pt states that he drives and does not use dme. SW inquired about possible HH when he discharges this time to help reduce his risk of readmission again and pt denies HH needs and declines HH referral at this time. Pt still wants to d/c home with spouse and denies any discharge needs. Pt has not ambulated yet and nursing staff to likely attempt to get pt up and into the chair and SW discussed with pt that he will need to be assessed to confirm steady on his feet and able to ambulate prior to d/c and pt acknowledges understanding. Plan: SW to follow closely for pt progress to confirm safe d/c home with spouse and pt currently declining HH referral. SW to follow for any further identified discharge needs. YECENIA Medina Discharge Planning/Care Management CM Discharge Assessment Start: 06/26/22 14:15 Freq: Status: Active Protocol: Document 06/26/22 14:15 BF (Rec: 06/26/22 14:17 BF [id number]) Discharge Planning Assessment Assigned Ortho Tech YECENIA Herrmann DPOA/Assigned Designee Name spouse Jess Contact Information [phone] Advance Directives? No Advance Directives on File No History Provided By Patient,Family Member,Medical Record Has Patient been admitted in last 30 Yes days? Comment last discharge 05/31/22 to home with spouse Prior Living Arrangements House Household Members spouse Type of transporation used prior to Drives own vehicle admit Independent with ADL's Yes Is patient alert and oriented? Yes Needs Assistance With Managing Medications,Home Chores / Shopping Caregiver for Another No DME Already Rented / Owned FWW / Walker Barriers to Discharge No Discharge Plan Home Transportation Arrangement Spouse Referrals Initiated None needed Additional Comment Patient may benefit with a dietary consult. Pt denies HH needs, not interested in HH at this time. Whiteboard Updated in Patient Room with Yes name and ext. # of Ortho Tech Review Status In Process Please Provide Date Initial DC 06/26/22 Assessment Was Performed Next Review Type Continued Stay Review
--- NOTE | 2022-06-26 16:21 | DIET.CONS2 ---
Addendum entered by Taisha Pantoja 06/26/22 16:30: RD agrees with administrative intern note below. Original Note: Dietary Inpatient Consultation Note Admission Date: 06/25/2022 17:20 67 y/o M admitted to the ICU teleICU for atrial fibrillation with RVR, sepsis without shock secondary to left lower extremity cellulitis, hyponatremia. RD consulted for BMI 30.8. Pt was last seen by RD on 05/29/22 to discuss barriers to DM managements. Pt had noted that he had discontinued all medications for ~1 month d/t being frustrated over having to attend monthly PCP visits for refills. Pt reported having DM education in the past. Met with pt today to discuss how DM management has been going and if barriers have been overcome. Pt reports being back on medications with no issues and checks BG 1-2 x/day with highs around 230 and lows around 120. No further consult needed at this time. Diet: 06/26/22 Breakfast Carbohydrate Consistent Diet Diet Modifications: Carbohydrate level: Small (2 CHO) Nutrition Percent Meal Consumed 75% 06/26/22 12:58 Electronically Signed by: Destini Calvillo 06/26/22 16:21 Clinical Dietitian [address] [address]
[2022-06-26] MEDS: RIVAROXABAN 10 MG TABLET 20 MG PO (17:21)
[2022-06-26] MEDS: INSULIN GLARGINE 100 UNIT/ML 3ML PEN 12 UNIT SUBCUT (20:51)
[2022-06-27] VITALS (38 sets, daily range): BP systolic 117–144; BP diastolic 64–94; PULSE 85–116; RESP 17–51; TEMP 36.1–36.8; O2SAT 90–99
[2022-06-27] MEDS: METOPROLOL IR 25 MG TABLET PO ×2 (00:05→06:09)
[2022-06-27] MEDS: diphenhydrAMINE 25 MG TABLET PO ×3 (00:05→16:56)
[2022-06-27] MEDS: PIPERACILLIN/TAZO 3.375 GM in SODIUM CHLORIDE 0.9% 100 ML IV ×3 (00:28→17:29)
[2022-06-27 02:38] LABS: x Labcorp Estim. Avg Glu (eAG) 306 mg/dL (.); x Labcorp Hemoglobin A1c 12.3 % (4.8-5.6)
[2022-06-27 05:06] LABS: Add Manual Diff / Slide Review NO; Basophils Absolute Auto 100 /uL (0-100); Basophils Percent Auto 0.8 % (0-2); Eosinophils Absolute Auto 100 /uL (0-450); Eosinophils Percent Auto 2.2 % (2-4); Hematocrit 37.9 % (41-53); Hemoglobin 12.9 g/dL (13.5-17.5); Lymphocytes Absolute Auto 900 /uL (1100-4500); Lymphocytes Percent Auto 13.9 % (25-40); Mean Corpuscular HGB Conc 34.1 % (30-36); Mean Corpuscular Hemoglobin 29.5 PG (26-34); Mean Corpuscular Volume 86.6 fL (80-100); Monocytes Absolute Auto 900 /uL (0-900); Monocytes Percent Auto 13.6 % (3-14); Neutrophils Absolute Auto 4700 /uL (1500-7000); Neutrophils Percent Auto 69.5 % (50-75); Platelet Count 126 X10^3/uL (150-400); Red Blood Cell Count 4.38 X10^6/uL (4.5-5.9); Red Cell Distribution Width 15.3 % (11.6-14.8); White Blood Cell Count 6.8 X10^3/uL (4.5-11.0)
[2022-06-27 05:53] LABS: Magnesium 1.8 mg/dL (1.6-2.3)
[2022-06-27 05:54] LABS: Alanine Aminotransferase 35 IU/L (<50); Albumin 3.1 g/dL (3.5-5.0); Albumin Globulin Ratio 0.9 (1.0-2.8); Alkaline Phosphatase 80 U/L (38-126); Aspartate Aminotransferase 49 IU/L (17-59); BUN Creatinine Ratio 17.1 (6-22); Bilirubin Total 1.2 mg/dL (0.2-1.3); Blood Urea Nitrogen 18 mg/dL (9-20); Calcium 8.2 mg/dL (8.4-10.2); Carbon Dioxide 24 mmol/L (22-32); Chloride 101 mmol/L (98-107); Estimated Glomerular Filt Rate > 60 mL/min (>60); Globulin 3.3 g/dL (1.7-4.1); Glucose 107 mg/dL (80-110); HEMOLYSIS < 15 (0-50); Potassium 3.8 mmol/L (3.4-5.1); Sodium 133 mmol/L (137-145); Total Protein 6.4 g/dL (6.3-8.2)
--- NOTE | 2022-06-27 09:17 | PM.PN.1 ---
Subjective Subjective Interval history: HR now in 80's with po metop. Transitioned to BID dosing from q6h. Patient says his LLE still feels swollen but is less hot today. Exam Vital Signs (past 8 hours): - 06/27/22 04:00 06/27/22 08:00 Temperature 97.1 F L 97.4 F L Pulse Rate 88 88 Respiratory Rate 22 28 H Blood Pressure 120/74 129/79 Pulse Oximetry 96 98 Oxygen Flow Rate 0 Oxygen Delivery Method Room Air Oxygen Flow Rate 0 Narrative Exam Narrative: General: Patient is a well-developed, well-nourished in no distress at this time. HEENT: Normocephalic, atraumatic, extraocular muscles intact, oral pharynx is clear and mucous membranes are moist. Neck is supple and symmetric, trachea is midline, no adenopathy, no thyroid enlargement, nontender, no masses palpated. Negative for JVD Chest: Normal AP diameter and contour without kyphoscoliosis, no nasal flaring, retractions, or tachypneic labored breathing Lungs: Auscultation of all lung raines are clear without adventitious sounds, wheezes, rhonchi, or rales. Cardio: regular rate and rhythm without murmur, rubs, or gallops, no carotid bruit, no cardiac pulsations present. Abdomen: Soft nontender, negative for organomegaly, or masses. Bowel sounds are present in all 4 quadrants without guarding or rebound, no CVA tenderness. Musculoskeletal: Bilateral lower extremity edema, left greater than right, left lilly erythematous and warm to touch, radial and pedal pulses are normal. Skin: Warm dry and intact without rashes, ulcerations or petechiae. Neuro: Alert and orientated x3, moves all extremities, sensation to touch intact, no gross deficits noted of cranial nerves. Psych: Patient has a well-kept appearance, appropriate affect, mental status attitude thought context and judgment are appropriate for age. Objective Labs 06/27/22 04:51 06/27/22 04:51 Labs: Laboratory Results - last 24 hr 06/25/22 06/26/22 06/27/22 20:51 09:44 04:51 WBC 6.8 RBC 4.38 L Hgb 12.9 L Hct 37.9 L MCV 86.6 MCH 29.5 MCHC 34.1 RDW 15.3 H Plt Count 126 L Neut % (Auto) 69.5 Lymph % (Auto) 13.9 L Aiken % (Auto) 13.6 Eos % (Auto) 2.2 Baso % (Auto) 0.8 Neut # (Auto) 4700 Lymph # (Auto) 900 L Aiken # (Auto) 900 Eos # (Auto) 100 Baso # (Auto) 100 Sodium Potassium Chloride Carbon Dioxide BUN Creatinine Estimated GFR BUN/Creatinine Ratio Glucose Hgb A1c (Ref Lab) 12.3 H Estim Average Glucose 306 Calcium Magnesium Total Bilirubin AST ALT Alkaline Phosphatase Total Protein Albumin Globulin Albumin/Globulin Ratio Group A Strep (PCR) Negative 06/27/22 06/27/22 04:51 04:51 WBC RBC Hgb Hct MCV MCH MCHC RDW Plt Count Neut % (Auto) Lymph % (Auto) Aiken % (Auto) Eos % (Auto) Baso % (Auto) Neut # (Auto) Lymph # (Auto) Aiken # (Auto) Eos # (Auto) Baso # (Auto) Sodium 133 L Potassium 3.8 Chloride 101 Carbon Dioxide 24 BUN 18 Creatinine 1.05 Estimated GFR > 60 BUN/Creatinine Ratio 17.1 Glucose 107 Hgb A1c (Ref Lab) Estim Average Glucose Calcium 8.2 L Magnesium 1.8 Total Bilirubin 1.2 AST 49 ALT 35 Alkaline Phosphatase 80 Total Protein 6.4 Albumin 3.1 L Globulin 3.3 Albumin/Globulin Ratio 0.9 L Group A Strep (PCR) [facility] Medical History (Updated 06/26/22 @ 06:48 by Magnolia Cr) Afib Diabetes Hyperlipidemia Hypertension Neuropathy of both feet Surgical History History of hernia repair History of neck surgery Family History Father Smoker Diabetes mellitus Heart attack Mother No significant medical problems Social History household members: spouse occupational status: employed Smoking Status: Never smoker alcohol intake: never Assessment & Plan Assessment & Plan narrative: Gorge Fuller is a 67yo M with PMH of A-fib on xeralto, DM2 with peripheral neuropathy, HTN, HLD, history of osteomyelitis, MSSA, 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 ? Patient presents with 5 days of fevers generally feeling unwell he states his heart rate has been fast, fever x 5 days, patient is a poor historian but verbalizes that he may have had increased swelling redness and pain of the left lower extremity for the past week, nausea and vomiting on way to the hospital. Patient admitted to the ICU teleICU for atrial fibrillation with RVR, sepsis without shock secondary to left lower extremity cellulitis, hyponatremia 1. Atrial fibrillation with RVR, acute on chronic, present on admission, RVR resolved -In ED Hr up to 209 -EKG: AFib RVR rate of 169, negative acute ST changes, depression in lead 1 and aVL, similar in comparison to EKG from 05/28/2022, -last echo 05/2022 EF 35-40% -initially on levophed drip which was weaned off -patient admitted to the ICU/tele ampoule filler -HR increasing to 130's at rest -transitioned from metop tart 25mg q6h to metop tart 50mg BID -patient has been noncompliant with Cardiology follow-up and medications -continue Xarelto -Mag 1.2 ordered 2 g rider and now 1.9 2. Sepsis without septic shock, secondary to left leg cellulitis, acute, present on admission- sepsis resolved -SOFA:2, febrile, tachycardic, tachypneic -patient has diabetes with a history of osteomyelitis, MSSA resulting in right 3rd toe amputation in 2019 -WBC 15.9 and temop of 100.9F on admission, WBCnow normal and afebrile -left lower extremity ultrasound negative for DVT -patient had a history of urticaria with a previous dosage of Zosyn in 2019, placed patient on Zosyn with Benadryl to be given prior to dosage patient has tolerated well and not had any reaction. -continue vanc and zosyn, monitor for CEE 3. Essential hypertension, with hypertensive urgency, acute on chronic, present on admission-resolved -ED : BP 193/91, 183/84, -admit hypotension 102/59, 98/54, map 75 -holding patient's lisinopril due to sepsis 4. Type 2 diabetes insulin-dependent, with hyperglycemia, acute on chronic, with peripheral neuropathy, chronic, present on admission-uncontrolled -patient admitted under diabetic protocol -blood sugar checks a.c. HS, with sliding-scale coverage, continue Lantus -check A1c 5. Overweight, mild, acute on chronic, present on admission -BMI 30.8 -dietary consult ordered regarding nutritional education and information for dietary, lifestyle, exercise, and weight changes. -the patient is at much higher risk for medical and surgical complications due to obesity as it relates to chronic illnesses:, and acute illness. The patient's obesity increases the difficulty and complexity of medical and/or surgical interventions, management and increases the chances of poor outcome such as morbidity and mortality as well as impaired wound healing. 6. Elevated troponin -trop up to 0.251, likely demand ischemia from sepsis and A-fib RVR -no chest pain or EKG changes -now downtrending Code status is full code. COVID negative. DVT prophylaxis with Xarelto. Proxy is Jess Fuller. Disposition: Pending improvement in LLE cellulitis and A-fib RVR. Likely 1-2 more days then home. Quality VTE Deep Vein Thrombosis/Pulmonary Embolism Present on Admission: No
[2022-06-27] MEDS: METOPROLOL IR 50 MG TABLET PO ×2 (09:50→20:45)
[2022-06-27] MEDS: INSULIN LISPRO 100 UNIT/ML 3ML VIAL SUBCUT (12:30)
--- NOTE | 2022-06-27 15:40 | CM.DPC ---
DC Continued: CM team discussed patients progress in daily rounds with MD and was told patient will need another day or two of IV ABX before he will be ready for DC. Patients legs still red and swollen. Dietitian met with the patient and his to discuss his DM dx and he dietary needs according to her note patient states understanding and there is no further consult needed at this time. DC plan is patient to return home when medically stable with his spouse Jess. Patient still declining HH referral. CM team will continue to follow to help with any DC planning needs prior to patient leaving. Rimma ireland RNintake counselor
[2022-06-27] MEDS: RIVAROXABAN 10 MG TABLET 20 MG PO (16:56)
[2022-06-27] MEDS: INSULIN GLARGINE 100 UNIT/ML 3ML PEN 12 UNIT SUBCUT (20:45)
[2022-06-28] VITALS (19 sets, daily range): BP systolic 137–147; BP diastolic 73–90; PULSE 78–114; RESP 17–32; TEMP 36.3–36.7; O2SAT 96–98
[2022-06-28] MEDS: diphenhydrAMINE 25 MG TABLET PO ×2 (00:27→08:17)
[2022-06-28] MEDS: PIPERACILLIN/TAZO 3.375 GM in SODIUM CHLORIDE 0.9% 100 ML IV ×2 (00:56→08:50)
[2022-06-28 05:00] LABS: Add Manual Diff / Slide Review NO; Basophils Absolute Auto 0 /uL (0-100); Basophils Percent Auto 0.6 % (0-2); Eosinophils Absolute Auto 200 /uL (0-450); Eosinophils Percent Auto 4.4 % (2-4); Hematocrit 38.3 % (41-53); Hemoglobin 12.9 g/dL (13.5-17.5); Lymphocytes Absolute Auto 1000 /uL (1100-4500); Lymphocytes Percent Auto 18.2 % (25-40); Mean Corpuscular HGB Conc 33.7 % (30-36); Mean Corpuscular Hemoglobin 29.3 PG (26-34); Mean Corpuscular Volume 86.9 fL (80-100); Monocytes Absolute Auto 700 /uL (0-900); Monocytes Percent Auto 12.5 % (3-14); Neutrophils Absolute Auto 3400 /uL (1500-7000); Neutrophils Percent Auto 64.3 % (50-75); Platelet Count 144 X10^3/uL (150-400); Red Blood Cell Count 4.41 X10^6/uL (4.5-5.9); White Blood Cell Count 5.3 X10^3/uL (4.5-11.0)
[2022-06-28 05:04] LABS: Magnesium 1.7 mg/dL (1.6-2.3)
[2022-06-28 05:05] LABS: Alanine Aminotransferase 60 IU/L (<50); Albumin 3.2 g/dL (3.5-5.0); Alkaline Phosphatase 102 U/L (38-126); Aspartate Aminotransferase 69 IU/L (17-59); BUN Creatinine Ratio 21.1 (6-22); Bilirubin Total 0.8 mg/dL (0.2-1.3); Blood Urea Nitrogen 19 mg/dL (9-20); Calcium 8.3 mg/dL (8.4-10.2); Carbon Dioxide 26 mmol/L (22-32); Chloride 102 mmol/L (98-107); Estimated Glomerular Filt Rate > 60 mL/min (>60); Globulin 3.2 g/dL (1.7-4.1); Glucose 112 mg/dL (80-110); HEMOLYSIS < 15 (0-50); Potassium 3.7 mmol/L (3.4-5.1); Sodium 134 mmol/L (137-145); Total Protein 6.4 g/dL (6.3-8.2)
--- NOTE | 2022-06-28 06:05 | PC.NURSE ---
Patient with minimal itching after infusion of zosyn, up to chair without difficulty
[2022-06-28] MEDS: METOPROLOL IR 50 MG TABLET PO (08:17)
--- NOTE | 2022-06-28 08:32 | PM.DS.1 ---
History of Present Illness History of Present Illness Date Patient Seen: 06/28/22 Time Patient Seen: 08:32 Chief complaint: vomiting/shaking/fever Narrative: Gorge Fuller is a 67yo M with PMH of A-fib on xeralto, DM2 with peripheral neuropathy, HTN, HLD, history of osteomyelitis, MSSA, 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 In ED was primary historian she is unsure if he is taking his medications regularly.? He was admitted for AFib RVR in May and was not taking medications regularly at that time.? Patient presents with 5 days of fevers generally feeling unwell he states his heart rate has been fast, fever x 5 days, patient is a poor historian but verbalizes that he may have had increased swelling redness and pain of the left lower extremity for the past week, nausea and vomiting on way to the hospital. Patient was sent to be extremely resistant to coming into the emergency department, is frequently noncompliant with medications, and does not follow with Cardiology. Patient states his primary care is through [facility] In the ED patient was afebrile temp 101?, hypertensive urgency BP 193/91, 183/84, tachycardic heart rates up to 209, tachypneic respiratory rates 30-50 in atrial fibrillation. Patient was given an initial dose of diltiazem and then placed on a Dilt drip. On admit patient denies chest pain, shortness in breath, headache, changes in vision, difficulty swallowing, speech impairment, weakness, numbness, tingling, difficulty with ambulation, recent falls, head injury, LOC, currently no fever, body aches, chills, cough, denies recent exposure to illness, abdominal pain, urinary incontinence/retention, dysuria, frequency, urgency, hematuria, bowel changes, constipation, incontinence, melena, rashes, recent changes to medication, illness, injury, or trauma. At the time of admit continued to have a low-grade fever 100.9, developed hypotension 102/59, 98/54, map 75, HR 86 Afib, RR 20, O2 saturation 94% on room air-patient is stable in no distress sleeping heavily. Currently diltiazem drip 2.5. VBG: PH 7.44, pCO2 30.5, PO2 34, bicarb 21, TCO2 21, O2 sat 69%, BE negative for, FiO2 21. WBC 15.9, newt 13,000, mono 1500 procalcitonin 0.5, initial lactate 3.2, repeat 1. Sodium 128, Cl 96, BUN 24, bicarb 19, glucose 252, Mag 1.2, PT 19.2, INR 1.7, lipase 367, BNP 2810, sofa score:2, anion gap negative, COVID influenza a/B/RSV are all negative. Chest x-ray mild pulmonary vascular congestion. I personally reviewed all imaging and EKG. EKG: AFib RVR rate of 169, negative acute ST changes, depression in lead 1 and aVL, similar in comparison to EKG from 05/28/2022, last echo 05/2022 EF 35-40%. Patient admitted to the ICU teleICU for atrial fibrillation with RVR, sepsis without shock secondary to left lower extremity cellulitis, hyponatremia Discharge Providers Provider Date of admission: 06/25/22 17:20 Discharge Date: 06/28/22 Primary care physician: Teresa Waters MD Consults: 06/25/22 20:16 Consult to Dietitian, Adult Urgent Comment: Reason For Exam: BMI 30.8 06/25/22 20:18 Consult to Tele-uniform patrol police officer Routine Comment: Consulting Provider: [employer] Reason for consultation: [employer] Has provider been notified: No Discharge provider: Bobby Land DO Summary Hospital Course Discharge Diagnosis: 1. Atrial fibrillation with RVR, acute on chronic, present on admission, RVR resolved -In ED Hr up to 209 -EKG:? AFib RVR rate of 169, negative acute ST changes, depression in lead 1 and aVL, similar in comparison to EKG from 05/28/2022, -last echo 05/2022 EF 35-40% -initially on levophed drip which was weaned off -patient admitted to the ICU/tele uniform patrol police officer -HR increasing to 130's at rest -transitioned from metop tart 25mg q6h to metop tart 50mg BID with good effect -patient has been noncompliant with Cardiology follow-up and medications -continue Xarelto -Mag 1.2 ordered 2 g rider and now 1.9 -discharge on po metop tart to replace metop succ 2. Sepsis without septic shock, secondary to left leg cellulitis, acute, present on admission- sepsis resolved -SOFA:2, febrile, tachycardic, tachypneic -patient has diabetes with a history of osteomyelitis, MSSA resulting in right 3rd toe amputation in 2019 -WBC 15.9 and temop of 100.9F on admission, WBCnow normal and afebrile -left lower extremity ultrasound negative for DVT -patient had a history of urticaria with a previous dosage of Zosyn in 2019, placed patient on Zosyn with Benadryl to be given prior to dosage patient has tolerated well and not had any reaction. -zosyn removed from allergy list as he tolerated it well -LLE cellulitis improved and no longer painful or hot, but some swelling and redness persisted on discharge. Advised to elevated LE. -discharged on cefadroxil x6 more days to complete 10 days of treatment 3. Essential hypertension, with hypertensive urgency, acute on chronic, present on admission-resolved -ED : BP 193/91, 183/84, -admit hypotension 102/59, 98/54, map 75 -holding patient's lisinopril due to sepsis -restarted on discharge 4. Type 2 diabetes insulin-dependent, with hyperglycemia, acute on chronic, with peripheral neuropathy, chronic,? present on admission-uncontrolled -patient admitted under diabetic protocol -blood sugar checks a.c. HS, with sliding-scale coverage, continue Lantus -check A1c >14 in May 2022 -diabetes education met with patient 5.? Overweight, mild, acute on chronic, present on admission -BMI 30.8 -dietary consult ordered regarding nutritional education and information for dietary, lifestyle, exercise, and weight changes. -the patient is at much higher risk for medical and surgical complications due to obesity as it relates to chronic illnesses:, and acute illness.? The patient's obesity increases the difficulty and complexity of medical and/or surgical interventions, management and increases the chances of poor outcome such as morbidity and mortality as well as impaired wound healing. 6. Elevated troponin -trop up to 0.251, likely demand ischemia from sepsis and A-fib RVR -no chest pain or EKG changes -now downtrending Code status is full code. COVID negative. DVT prophylaxis with Xarelto. Proxy is Jess Fuller. Hospital Course: See above problem list. Time Spent with Patient Time spent: Greater than 30 minutes Exam Vital Signs (past 8 hours): - 06/28/22 01:06 06/28/22 01:30 06/28/22 02:00 Temperature Pulse Rate 106 H 103 H 87 Respiratory Rate 31 H 28 H 31 H Blood Pressure Pulse Oximetry 06/28/22 02:30 06/28/22 03:00 06/28/22 03:30 Temperature Pulse Rate 85 79 86 Respiratory Rate 29 H 20 28 H Blood Pressure Pulse Oximetry 06/28/22 04:00 06/28/22 04:04 06/28/22 04:04 Temperature 97.3 F L Pulse Rate 92 H 78 Respiratory Rate 28 H 29 H Blood Pressure 139/73 139/73 Pulse Oximetry 96 98 06/28/22 04:30 06/28/22 05:00 06/28/22 05:30 Temperature Pulse Rate 81 85 103 H Respiratory Rate 29 H 29 H 28 H Blood Pressure Pulse Oximetry 06/28/22 06:00 06/28/22 06:30 06/28/22 07:00 Temperature Pulse Rate 103 H 95 H 81 Respiratory Rate 32 H 29 H 25 H Blood Pressure Pulse Oximetry 06/28/22 07:30 Temperature Pulse Rate 79 Respiratory Rate 25 H Blood Pressure Pulse Oximetry Oxygen Delivery Method Room Air Oxygen Flow Rate 0 Narrative Exam Narrative: General: Patient is a well-developed, well-nourished in no distress at this time. HEENT: Normocephalic, atraumatic, extraocular muscles intact, oral pharynx is clear and mucous membranes are moist. Neck is supple and symmetric, trachea is midline, no adenopathy, no thyroid enlargement, nontender, no masses palpated. Negative for JVD Chest: Normal AP diameter and contour without kyphoscoliosis, no nasal flaring, retractions, or tachypneic labored breathing Lungs: Auscultation of all lung raines are clear without adventitious sounds, wheezes, rhonchi, or rales. Cardio: regular rate and rhythm without murmur, rubs, or gallops, no carotid bruit, no cardiac pulsations present. Abdomen: Soft nontender, negative for organomegaly, or masses. Bowel sounds are present in all 4 quadrants without guarding or rebound, no CVA tenderness. Musculoskeletal: Bilateral lower extremity edema, left greater than right, left lilly erythematous and warmth to touch has improved, radial and pedal pulses are normal. Skin: Warm dry and intact without rashes, ulcerations or petechiae. Neuro: Alert and orientated x3, moves all extremities, sensation to touch intact, no gross deficits noted of cranial nerves. Psych: Patient has a well-kept appearance, appropriate affect, mental status attitude thought context and judgment are appropriate for age. Objective Labs 06/28/22 04:24 06/28/22 04:24 Labs: Laboratory Results - last 24 hr 06/28/22 06/28/22 06/28/22 04:24 04:24 04:24 WBC 5.3 RBC 4.41 L Hgb 12.9 L Hct 38.3 L MCV 86.9 MCH 29.3 MCHC 33.7 RDW 15.0 H Plt Count 144 L Neut % (Auto) 64.3 Lymph % (Auto) 18.2 L Frederick % (Auto) 12.5 Eos % (Auto) 4.4 H Baso % (Auto) 0.6 Neut # (Auto) 3400 Lymph # (Auto) 1000 L Frederick # (Auto) 700 Eos # (Auto) 200 Baso # (Auto) 0 Sodium 134 L Potassium 3.7 Chloride 102 Carbon Dioxide 26 BUN 19 Creatinine 0.90 Estimated GFR > 60 BUN/Creatinine Ratio 21.1 Glucose 112 H Calcium 8.3 L Magnesium 1.7 Total Bilirubin 0.8 AST 69 H ALT 60 H Alkaline Phosphatase 102 Total Protein 6.4 Albumin 3.2 L Globulin 3.2 Albumin/Globulin Ratio 1.0 [facility] Medical History (Updated 06/26/22 @ 06:48 by Magnolia Cr) Afib Diabetes Hyperlipidemia Hypertension Neuropathy of both feet Surgical History History of hernia repair History of neck surgery Family History Father Smoker Diabetes mellitus Heart attack Mother No significant medical problems Social History household members: spouse occupational status: employed Smoking Status: Never smoker alcohol intake: never Discharge Plan Discharge Plan Patient Disposition: Home Provider Discharge Comment: You were admitted for cellulitis of your right leg which improved with antibiotics. You will now need to finish 6 more days of oral antibiotics at home. Your A-fib was also going at a fast rate which we slowed with metoprolol. I'm switching up your metoprolol a bit, as you were taking the long acting version and it wasn't working as well. So you are now on a twice daily short acting metoprolol. This should work better for you. Discharge orders & Medications Prescriptions: New metoprolol tartrate 50 mg Tablet 50 mg PO BID Qty: 60 0RF cefadroxil 500 mg capsule 500 mg PO BID 6 Days Qty: 12 0RF Continued metformin 500 mg Tablet 500 mg PO BID insulin glargine [Lantus U-100 Insulin] 100 unit/mL Solution 12 unit SUBCUT BEDTIME Xarelto 20 mg Tablet 20 mg PO QPM lisinopril 5 mg tablet 5 mg PO DAILY 90 Days Qty: 90 0RF Discontinued metoprolol succinate 50 mg tablet extended release 24 hr 50 mg PO BID 90 Days Qty: 180 0RF Medication counseling provided by Pharmacist: Yes Follow up/Referrals: Teresa Waters MD [Primary Care Provider] - 2 Weeks Visit Report/Discharge Packet Stand Alone Forms: Patient Portal/API, Stroke Signs & Symptoms Discharge Data Primary Care Provider: Teresa Waters Discharges patient from system. Discharge Date/Time: 06/28/22 16:31 Quality VTE Deep Vein Thrombosis/Pulmonary Embolism Present on Admission: No
[2022-06-28] MEDS: MAGNESIUM CHLORIDE 64 MG TABLET 128 MG PO (09:30)
[2022-06-29 16:43] LABS: Labcorp Hemoglobin (Hb) A1c 12.2 % (4.8-5.6)
[2022-07-10 15:38] LABS: Troponin I 0.251 ng/mL (0.01-0.034)
== END 2022-06-28 16:31 | disposition home or self-care (01) | DRG 872 ==
LOC: ED 16:07 → AC 17:21 → ICU 18:12
PROVIDERS: Emergency Medicine; Nurse Practitioner Family; Student in an Organized Health Care Education/Training Program; Admitting Provider Neuromusculoskeletal Medicine, Sports Medicine; Emergency Provider Emergency Medicine; PCP Internal Medicine; Referring Provider Emergency Medicine; Visit Provider Neuromusculoskeletal Medicine, Sports Medicine
DX: A41.9 Sepsis, unspecified organism (principal); L03.116 Cellulitis of left lower limb; E87.1 Hypo-osmolality and hyponatremia; I24.8 Other forms of acute ischemic heart disease; I48.91 Unspecified atrial fibrillation; I10 Essential (primary) hypertension; I16.0 Hypertensive urgency; E11.65 Type 2 diabetes mellitus with hyperglycemia; E11.42 Type 2 diabetes mellitus with diabetic polyneuropathy; E66.3 Overweight; Z79.4 Long term (current) use of insulin; Z68.30 Body mass index [BMI] 30.0-30.9, adult; Z79.01 Long term (current) use of anticoagulants; Z20.822 Contact with and (suspected) exposure to COVID-19
CPT/HCPCS: 0241U; 36415; 71045; 73590; 73600; 73620; 80053; 80320; 82550; 82553; 82805; 82962; 83036; 83605; 83690; 83735; 83880; 84145; 84439; 84443; 84484; 85025; 85610; 85651; 85730; 86140; 87040; 87086; 87633; 87651; 87797; 93005; 93926; 96365; 96366; 96368; 96376; 99284; 99291; J1815; J1940; J2543; J3475

== ENCOUNTER 2023-03-28 17:50 | Emergency (ER) | payer MEDICARE, OTHER, SELFPAY ==
[2022-06-25 18:26] VITALS: BMI 30.8
[2023-03-28] VITALS (7 sets, daily range): BP systolic 140; BP diastolic 67; PULSE 84–121; RESP 20–29; TEMP 37.1; O2SAT 95–98; BMI 31.1
--- NOTE | 2023-03-28 18:05 | ED_ITS ---
HPI - General Adult General Chief complaint: Diabetic Problem Stated complaint: Weakness Time Seen by Provider: 03/28/23 17:57 Source: patient Mode of arrival: EMS Limitations: no limitations History of Present Illness HPI narrative: Patient is a 68-year-old male. Has a history of hypertension, insulin-dependent diabetes, atrial fibrillation. Was seen here 2 times earlier this year for atrial fibrillation with rapid ventricular response. Subsequently admitted to the hospital and each time after discharge was not compliant with his medicines. Patient states that he has take some of his medications sometimes but is not consistent with taking his medicines. He has not followed up with his primary doctor since admission to the hospital. Does not take his Xarelto regularly. Does not take his metoprolol regularly. Does not check his blood pressure regularly. Patient could not give a specific reason as to why this is. He states he does have prescriptions for his medicines at home. He arrives in the emergency department today because he states he is feeling weak. Earlier today he would 2 episodes of lightheadedness both of which occurred at work. One of which occurred who with standing up. At the time he denied chest pain, shortness of breath, palpitations. He currently states he is feeling better but is still weak. No abdominal pain or nausea or vomiting. Related Data Home Medications Medication Instructions Recorded Confirmed insulin glargine 100 unit/mL 12 unit SUBCUT BEDTIME 10/20/19 03/28/23 subcutaneous solution (Lantus U-100 Insulin) metformin 500 mg tablet 500 mg PO BID 10/20/19 03/28/23 rivaroxaban 20 mg tablet (Xarelto) 20 mg PO QPM 10/20/19 03/28/23 atorvastatin 40 mg tablet 40 mg PO BEDTIME 03/28/23 03/28/23 lisinopril 5 mg tablet 5 mg PO DAILY 03/28/23 03/28/23 Previous Rx's Medication Instructions Recorded metoprolol tartrate 50 mg tablet 50 mg PO BID #60 tabs 06/28/22 Allergies Allergy/AdvReac Type Severity Reaction Status Date / Time piperacillin Allergy Mild ITCHING Verified 06/28/22 09:31 Review of Systems Constitutional Constitutional: Reports system reviewed and no additional complaints, except as documented Cardiovascular Cardiovascular: Reports system reviewed and no additional complaints, except as documented Respiratory Respiratory: Reports system reviewed and no additional complaints, except as documented Gastrointestinal Gastrointestinal: Reports system reviewed and no additional complaints, except as documented Neurologic Neurologic: Reports system reviewed and no additional complaints, except as documented Hematologic/Lymphatic Comments: He is prescribed blood thinners but does not take them Patient History Medical History Afib Neuropathy of both feet Hypertension Hyperlipidemia Diabetes Surgical History History of hernia repair History of neck surgery Family History Father Smoker Diabetes mellitus Heart attack Mother No significant medical problems Social History household members: spouse occupational status: employed Smoking Status: Never smoker alcohol intake: never Smoking Status: Never smoker alcohol intake frequency: other Substance Use Type: does not use Exam Initial Vital Signs Initial Vital Signs: Vital Signs Pulse Rate 120 H 03/28/23 17:56 Blood Pressure 140/67 03/28/23 17:56 Pulse Oximetry 98 03/28/23 17:56 Const General: cooperative, comfortable and No ill appearing HENND Head: normal to inspection and normocephalic Resp Effort & Inspection: normal respiratory effort Auscultation: clear to auscultation bilaterally Cardio Rate: tachycardic Rhythm: regular rhythm Skin General: no rashes or lesions noted Neuro General: patient alert, patient awake and moves all extremities Extrem General: No edema Course Orders Ordered: ED Orders 03/28/23 17:50 Complete Blood Count AUTO DIFF Stat 03/28/23 18:07 XR chest 1V Stat EKG-12 Lead Stat 03/28/23 18:37 Comprehensive Metabolic Panel Stat Ketones (Beta-Hydroxybutyrate) Stat Lipase Stat Magnesium Stat Phosphorous Stat Discontinued Medications Sodium Chloride (Normal Saline 0.9%) 1,000 mls @ 1,000 mls/hr IV BOLUS ONE Stop: 03/28/23 19:04 Last Infusion: 03/28/23 19:23 Dose: Infused Documented By: Admin: 03/28/23 18:10 Dose: 1,000 mls/hr Documented By: MARY Metoprolol Tartrate (Metoprolol Ir 25 Mg Tablet) 25 mg PO NOW ONE Stop: 03/28/23 18:11 Last Admin: 03/28/23 18:13 Dose: 25 mg Documented By: [facility] Vital Signs Vital signs: Vital Signs - 8 hr 03/28/23 17:56 03/28/23 17:56 03/28/23 17:59 Temperature 98.8 F Pulse Rate 120 H 118 H Respiratory Rate 20 Blood Pressure 140/67 140/67 Pulse Oximetry 98 97 Oxygen Delivery Method Room Air 03/28/23 18:00 03/28/23 18:30 03/28/23 19:00 Temperature Pulse Rate 117 H 121 H 101 H Respiratory Rate 26 H 29 H Blood Pressure Pulse Oximetry 98 95 Oxygen Delivery Method 03/28/23 19:08 03/28/23 19:30 Temperature Pulse Rate 84 96 H Respiratory Rate 22 Blood Pressure Pulse Oximetry 95 Oxygen Delivery Method Medical Decision Making Lab Data Lab results reviewed: Yes I reviewed the patient's lab results. 03/28/23 17:50 03/28/23 18:37 Labs: Lab Results 03/28/23 03/28/23 Range/Units 17:50 18:37 WBC 10.0 (4.5-11.0) X10^3/uL RBC 5.60 (4.5-5.9) X10^6/uL Hgb 17.2 (13.5-17.5) g/dL Hct 50.4 (41-53) % MCV 90.0 (80-100) fL MCH 30.6 (26-34) PG MCHC 34.0 (30-36) % RDW 14.7 (11.6-14.8) % Plt Count 212 (150-400) X10^3/uL Neut % (Auto) 82.1 H (50-75) % Lymph % (Auto) 5.9 L (25-40) % [place] % (Auto) 11.4 (3-14) % Eos % (Auto) 0.1 L (2-4) % Baso % (Auto) 0.5 (0-2) % Neut # (Auto) 8200 H (1729-6843) /uL Lymph # (Auto) 600 L (3201-2715) /uL [place] # (Auto) 1100 H (0-900) /uL Eos # (Auto) 0 (0-450) /uL Baso # (Auto) 0 (0-100) /uL Sodium 129 L (137-145) mmol/L Potassium 4.6 (3.4-5.1) mmol/L Chloride 94 L (98-107) mmol/L Carbon Dioxide 24 (22-32) mmol/L BUN 23 H (9-20) mg/dL Creatinine 1.17 (0.66-1.25) mg/dL Estimated GFR > 60 (>60) mL/min BUN/Creatinine Ratio 19.7 (6-22) Glucose 365 H (80-110) mg/dL Calcium 8.8 (8.4-10.2) mg/dL Phosphorus 2.8 (2.3-3.7) mg/dL Magnesium 1.4 L (1.6-2.3) mg/dL Total Bilirubin 1.0 (0.2-1.3) mg/dL AST 40 (17-59) IU/L ALT 35 (<50) IU/L Alkaline Phosphatase 99 (38-126) U/L Total Protein 7.4 (6.3-8.2) g/dL Albumin 4.0 (3.5-5.0) g/dL Globulin 3.4 (1.7-4.1) g/dL Albumin/Globulin Ratio 1.2 (1.0-2.8) Lipase 149 (23-300) U/L Ketones 0.31 H (<0.27) mmol/L Point of Care Testing Glucose POC 409 Point of care testing: Point of Care Testing Glucose POC 409 Imaging Data Chest x-ray: Radiologist's Impression: PROCEDURE: XR CHEST 1V INDICATIONS: Atrial fibrillation TECHNIQUE: One view of the chest was acquired. COMPARISON: [facility], , XR CHEST 1V, 06/25/2022, 15:37. FINDINGS: Surgical changes and devices: Overlying monitoring wires. Lungs and pleura: Lungs are clear. No pleural effusions or pneumothorax. Mediastinum: Mild cardiomegaly. No significant central venous congestion. Stable aortic contour. Bones and chest wall: No suspicious bony lesions. Overlying soft tissues appear unremarkable. IMPRESSION: Cardiomegaly without radiographic evidence of acute CHF ECG Data Attestation: I personally reviewed and interpreted this ECG as follows: Interpretation: Atrial fibrillation Ventricular rate of 121 Normal axis Normal QRS No ST T wave changes MDM Narrative Medical decision making narrative: Patient has been noncompliant with his medication use. He was in AFib with a heart rate in the 120s however after being given a dose of metoprolol (what he should be taking) his heart rate improved to 95-105. His chest x-ray is unremarkable. Patient is hyperglycemic but not in DKA. No signs of infection felt. I wonder whether he had an episode of AFib with RVR causing him to become lightheaded earlier today. There was no indication for admission to the hospital today as he is now relatively rate controlled. I advised him that he does need to be taking all of his medications as directed as it most likely is going to make him feel better and potentially keep him from having to come to the emergency department in the future. He was given return precautions. He states he has all of his medications at home. He expressed understanding and agreement with the plan. Discharge Plan Departure Patient Disposition: Home Clinical Impression: Atrial fibrillation, Hyperglycemia Instructions: DI for Atrial Fibrillation Activity Restrictions/Additional Instructions: It is important that you take all of your medications as directed. This will help keep your heart rate and rhythm in a normal range. It will also help keep your blood sugars in the normal range and will most likely help you feel better. You do need to contact your primary care doctor for a follow-up. Return to the emergency department for new symptoms. Prescriptions: No Action metformin 500 mg Tablet 500 mg PO BID insulin glargine [Lantus U-100 Insulin] 100 unit/mL Solution 12 unit SUBCUT BEDTIME Xarelto 20 mg Tablet 20 mg PO QPM metoprolol tartrate 50 mg Tablet 50 mg PO BID Qty: 60 0RF atorvastatin 40 mg Tablet 40 mg PO BEDTIME lisinopril 5 mg tablet 5 mg PO DAILY Referrals: Teresa Waters MD [Primary Care Provider] - Stand Alone Forms: Patient Portal/API
--- NOTE | 2023-03-28 18:07 | DI.RAD.S_ITS ---
PROCEDURE: XR CHEST 1V INDICATIONS: Atrial fibrillation TECHNIQUE: One view of the chest was acquired. COMPARISON: [facility], CR, XR CHEST 1V, 06/25/2022, 15:37. FINDINGS: Surgical changes and devices: Overlying monitoring wires. Lungs and pleura: Lungs are clear. No pleural effusions or pneumothorax. Mediastinum: Mild cardiomegaly. No significant central venous congestion. Stable aortic contour. Bones and chest wall: No suspicious bony lesions. Overlying soft tissues appear unremarkable. IMPRESSION: Cardiomegaly without radiographic evidence of acute CHF Dictated by: Melissa Murillo M.D. on 03/28/2023 at 19:41 Approved by: Melissa Murillo M.D. on 03/28/2023 at 19:43
[2023-03-28] MEDS: SODIUM CHLORIDE 0.9% 1,000 ML 1000 ML IV (18:10)
[2023-03-28] MEDS: METOPROLOL IR 25 MG TABLET PO (18:13)
[2023-03-28 18:16] LABS: Add Manual Diff / Slide Review NO; Basophils Absolute Auto 0 /uL (0-100); Basophils Percent Auto 0.5 % (0-2); Eosinophils Absolute Auto 0 /uL (0-450); Eosinophils Percent Auto 0.1 % (2-4); Hematocrit 50.4 % (41-53); Hemoglobin 17.2 g/dL (13.5-17.5); Lymphocytes Absolute Auto 600 /uL (1100-4500); Lymphocytes Percent Auto 5.9 % (25-40); Mean Corpuscular Hemoglobin 30.6 PG (26-34); Monocytes Absolute Auto 1100 /uL (0-900); Monocytes Percent Auto 11.4 % (3-14); Neutrophils Absolute Auto 8200 /uL (1500-7000); Neutrophils Percent Auto 82.1 % (50-75); Platelet Count 212 X10^3/uL (150-400); Red Cell Distribution Width 14.7 % (11.6-14.8)
[2023-03-28 18:56] LABS: Alanine Aminotransferase 35 IU/L (<50); Albumin Globulin Ratio 1.2 (1.0-2.8); Alkaline Phosphatase 99 U/L (38-126); Aspartate Aminotransferase 40 IU/L (17-59); BUN Creatinine Ratio 19.7 (6-22); Blood Urea Nitrogen 23 mg/dL (9-20); Calcium 8.8 mg/dL (8.4-10.2); Carbon Dioxide 24 mmol/L (22-32); Chloride 94 mmol/L (98-107); Estimated Glomerular Filt Rate > 60 mL/min (>60); Globulin 3.4 g/dL (1.7-4.1); Glucose 365 mg/dL (80-110); HEMOLYSIS 42 (0-50); Lipase 149 U/L (23-300); Potassium 4.6 mmol/L (3.4-5.1); Sodium 129 mmol/L (137-145); Total Protein 7.4 g/dL (6.3-8.2)
[2023-03-28 18:57] LABS: Magnesium 1.4 mg/dL (1.6-2.3); Phosphorous 2.8 mg/dL (2.3-3.7)
[2023-03-28 18:59] LABS: Ketones (Beta-Hydroxybutyrate) 0.31 mmol/L (<0.27)
== END 2023-03-28 19:46 | disposition home or self-care (01) ==
PROVIDERS: Emergency Provider Emergency Medicine; PCP Internal Medicine
DX: I48.91 Unspecified atrial fibrillation (principal); E11.65 Type 2 diabetes mellitus with hyperglycemia; Z79.01 Long term (current) use of anticoagulants
CPT/HCPCS: 36415; 71045; 80053; 82009; 82962; 83690; 83735; 84100; 85025; 93005; 99284